=== PATIENT | male | born 1970 | race Caucasian/White ===

== ENCOUNTER 2019-10-03 13:14 | Inpatient (IN) | payer MEDICARE, SELFPAY ==
[2019-10-03] VITALS (22 sets, daily range): BP systolic 105–146; BP diastolic 78–108; PULSE 78–104; RESP 16–23; TEMP 36.1–36.3; O2SAT 95–100; BMI 38.9; BMI 38.7
--- NOTE | 2019-10-03 13:15 | EKG12_ITS ---
Test Reason : CP Blood Pressure : / mmHG Vent. Rate : 076 BPM Atrial Rate : 076 BPM P-R Int : 088 ms QRS Dur : 084 ms QT Int : 352 ms P-R-T Axes : -03 -58 -11 degrees QTc Int : 396 ms Sinus rhythm with short NH Left anterior fascicular block Inferior infarct , age undetermined Anterolateral infarct , possibly acute Confirmed by MAKAYLA AC, FESTUS ([id number]), legal editor ARIANNA DUENAS ([id number]) on 10/19/2019 11:01:20 AM Referred By: Evelio Robles Confirmed By:FESTUS BENAVIDES MD
--- NOTE | 2019-10-03 13:18 | RAD_ITS ---
STUDY: X-RAY CHEST REASON FOR EXAM: Male, 48 years old. STEMI TECHNIQUE: AP COMPARISON: 07/18/2017 FINDINGS: Lungs are generally under expanded with mild elevation the right hemidiaphragm, stable. No airspace consolidation. There is no demonstrated pleural abnormality. Normal size heart. Normal mediastinum and radha. Normal visualized pulmonary arteries. Normal visualized aortic arch and descending thoracic aorta. No acute bony process. There is no demonstrated abnormality of the visualized soft tissue structures of the upper abdomen. RAD/Chest 1 View (Portable) IMPRESSION: 1. No airspace consolidation or pleural effusion. 2. Hypoinflation. Electronically Signed: Dean Lerner MD (Brooks) at 14:03 EST , Service support ,
--- NOTE | 2019-10-03 13:19 | EKG12_ITS ---
Test Reason : AM Blood Pressure : / mmHG Vent. Rate : 083 BPM Atrial Rate : 083 BPM P-R Int : 138 ms QRS Dur : 082 ms QT Int : 348 ms P-R-T Axes : 053 -45 -14 degrees QTc Int : 408 ms Normal sinus rhythm Low voltage QRS Left anterior fascicular block Anterolateral infarct age undetermined Abnormal ECG Confirmed by ARSH AC, EMILY ([id number]), development editor LAZARO WATSON ([id number]) on 10/06/2019 10:32:38 AM Referred By: Evelio Robles Confirmed By:EMILY CABAN MD
--- NOTE | 2019-10-03 13:20 | NURSING ---
STEMI DOC ON LINE
--- NOTE | 2019-10-03 13:23 | NURSING ---
ICU 7
[2019-10-03] MEDS: TICAGRELOR 90 MG TABLET 180 MG PO (13:24)
[2019-10-03] MEDS: Aspirin 81 MG TAB.CHEW 324 MG PO (13:24)
[2019-10-03] MEDS: Heparin Injection (Vial) 5,000 UNIT/ML VIAL 4000 UNIT IV (13:24)
[2019-10-03] MEDS: Nitroglycerin SL (ED/IMG/CATH) 0.4 MG TABLET SUBLINGUAL (13:25)
[2019-10-03 13:26] LABS: Absolute Lymphocyte Count 2.81 X10^3/uL (0.83-4.51); Absolute Neutrophil Count 9.9 X10^3/uL (2.0-7.7); Basophil# 0.06 X10^3/uL; Basophil% 0.4 % (0-1); Eosinophil# 0.04 X10^3/uL; Eosinophils% 0.3 % (0-5); Hematocrit 53.6 % (40-54); Lymphocyte # 2.81 X10^3/ul (4.0); Lymphocyte % 20.1 % (19-41); Mean Corp Hgb Conc 33.8 g/dL (32-36); Mean Corpuscular Hgb 31.8 pg (27.0-32.0); Mean Platelet Vol. 9.1 fl (6.2-12.0); Monocyte# 1.08 X10^3/uL; Monocyte% 7.7 % (0-10); NRBC Flagged by Analyzer 0 % (0-5); Neutrophil # 9.94 X10^3/uL (2.7-7.7); Neutrophil % 71.2 % (47-70); Platelet Count 282 K/mm3 (150-450); RBC Distribution Width CV 13.4 % (11.6-14.6); RBC Distribution Width SD 46.5 fl (35.1-43.9)
[2019-10-03 13:28] LABS: Hemoglobin 18.1 g/dL (13.0-16.5)
[2019-10-03] MEDS: Nitroglycerin (INPATIENT USE) 0.4 MG TAB.SUBL SUBLINGUAL (13:30)
--- NOTE | 2019-10-03 13:30 | NURSING ---
MASON FOREMAN/SUPERINTENDANT CALLED AND ON THEIR WAY DR WARNER IN ER
--- NOTE | 2019-10-03 13:30 | ED.VISSUMM ---
- ER Visit Summary Date of Service: 10/03/19 Chief Complaint: Chest pain History of Present Illness: The patient is a 48 M presenting with chest pain. This started around 6 AM this morning. Patient complains of midsternal heaviness. At worst 9/10, currently 7/10. He has associated shortness of breath, nausea, vomiting, diaphoresis. He has a family history of early heart disease. He is not a smoker. No other CAD risk factors. Physical Examination: Vitals are stable. Patient is afebrile. Alert no acute distress. HEENT exam is unremarkable. Neck is supple. Lungs are clear and equal bilaterally. Heart is regular rate and rhythm. Abdomen is soft nontender nondistended. Extremities are unremarkable. Skin is warm and dry. No focal neurologic deficit. Remainder of exam is unremarkable. Emergency Department Course and Treatment: EKG shows anterolateral ST elevation MN. He was given aspirin, heparin, Brilinta, nitro. Discussed with . Patient will be taken to the woven label designer. Disposition: To woven label designer Impression: STEMI This note was generated with [employer] dictation software. It may contain incorrect words, spelling, and punctuation that were not noted in review of the chart prior to signing ED Disposition - Plan for ED Patient:
[2019-10-03 13:34] LABS: International Normalized Ratio 0.9; Prothrombin Time (Protime)PT. 12.1 SECONDS (11.7-14.9)
--- NOTE | 2019-10-03 13:36 | HP.PCM_ITS ---
Problem List (1) Acute ST elevation myocardial infarction (STEMI) Status: Acute (2) Leukemia Status: Resolved (3) Gout Status: Chronic (4) History of pulmonary embolus (PE) Status: Resolved (5) BMI 39.0-39.9,adult Status: Chronic History of Present Illness Date of Admission: 10/03/19 Chief Complaint: Chest pain The patient is a 48 year old M with past medical history significant for previous PE treated with rivaroxaban, gouty arthritis, history of leukemia status post stem cell transplant currently in remission obesity with BMI of 39 who presented with chest discomfort. Patient symptoms started on the morning of his admission. Symptoms were described as discomfort located in the retros ternal region. Patient felt she was having reflux symptoms took a couple of times without much improvement. Per patient his brother almost a year ago at 52 following acute HI he therefore became concerned and called the squad. EKG obtained demonstrated acute ST segment elevation HI involving the anterior lateral wall. STEMI alert was called. Patient taken to Customer Counter Representative for left heart catheterization and intervention. Prior to patient going to Customer Counter Representative the hospitalist was consulted from the ED for admission. Past Medical History Past Medical History (Chronic Problems): Chronic Problems Gout (Chronic) BMI 39.0-39.9,adult (Chronic) Allergies lorazepam [From Ativan] Adverse Reaction (Verified 07/18/17 09:53) HALLUCINATIONS ondansetron [From Zofran (as hydrochloride)] Adverse Reaction (Verified 07/18/17 09:53) SEVERE HEADACHE Home Medications: Ambulatory Orders Medication Instructions Recorded Acyclovir [Zovirax] 400 mg PO BID 07/18/17 Multivitamin [Multiple Vitamins] 1 each PO DAILY 07/18/17 Acetaminophen [Tylenol] 1,000 mg PO Q8 #60 tablet 07/30/17 Oxycodone [Oxyir] 5 - 10 mg PO Q6H PRN PRN #60 tablet 07/30/17 Rivaroxaban [Xarelto] 10 mg PO DAILY@0600 #42 tablet 07/30/17 Smoking Status: Never smoker - *Family History Maternal History Items: Cancer, Hypertension Paternal History Items: Diabetes, Heart Disease Review of Systems Constitutional: Denies: Anorexia, Chills, Fever, Night Sweats, Weight Change HEENT: Denies: Head Aches, Sinus Congestion, Sinus Drainage Cardiovascular: Reports: Chest Pain. Denies: Orthopnea, Palpitations, Paroxysmal Noc. Dyspnea Respiratory: Denies: Cough, Shortness of breath at rest, Shortness of breath upon exertion, Sputum production Gastrointestinal: Denies: Abdominal Pain, Hematemesis, Hematochezia, Nausea, Melena, Vomiting Genitourinary: Denies: Dysuria, Frequency, Hematuria, Urgency Musculoskeletal: Denies: Joint Pain, Joint Tenderness Skin: Denies: Rash Neurological: Denies: Focal weakness, Numbness, Tingling Psychiatric: Denies: Homicidal Ideations, Suicidal Ideations Hematologic/ Lymphatic: Denies: Easy Bruising, Easy Bleeding VTE Information - Inpt Only VTE Present on Admission: No VTE Mechan Device Prophylaxis: None VTE Pharm Prophylaxis ordered?: Yes Patient Problems: Active and Suspected Problems Acute ST elevation myocardial infarction (STEMI) (Acute) Objective: GENERAL: cooperative appears to be in some distress HEENT: Atraumatic; EYES; Anicteric, Normal Conjunctiva NECK; supple, normal thyroid, RESPIRATORY: Diminished to auscultation CARDIOVASCULAR: Regular S1 S2, GI: soft, normoactive bowel sounds, : No Renal angle tenderness; EXTREMITIES: No edema, no clubbing, MUSCULOSKELETAL: no muscle waisting NEURO: Awake; no lateralizing signs. SKIN: No Rash PSYCH; Flat affect - Physical Exam Vitals/I&O's: Vital Signs Temp Pulse Resp BP Pulse Ox 97.0 F L 86 19 H 146/108 H 99 10/03/19 13:15 10/03/19 13:25 10/03/19 13:15 10/03/19 13:25 10/03/19 13:26 Oxygen Flow Rate (L/min) 4 Oxygen Delivery Method Nasal Cannula Weight: 134 kg Body Mass Index (BMI) 38.9 Laboratory Results 10/03/19 13:19: WBC 14.0 H, RBC 5.70, Hgb 18.1 H*, Hct 53.6, MCV 94.0, MCH 31.8, MCHC 33.8, RDW Std Deviation 46.5 H, RDW Coeff of Yunior 13.4, Plt Count 282, MPV 9.1, Immature Gran % (Auto) 0.300, Neut % (Auto) 71.2 H, Lymph % (Auto) 20.1, Mcn[place] % (Auto) 7.7, Eos % (Auto) 0.3, Baso % (Auto) 0.4, Absolute Neuts (auto) 9.9 H, Absolute Lymphs (auto) 2.81, Nucleated RBC % 0, Diff Path Review January foll 10/03/19 13:19: PT Pending, INR Pending, APTT Pending 10/03/19 13:19: Sodium Pending, Potassium Pending, Chloride Pending, Carbon Dioxide Pending, Anion Gap Pending, BUN Pending, Creatinine Pending, Est GFR (MDRD) Af Amer Pending, Est GFR (MDRD) Non-Af Pending, BUN/Creatinine Ratio Pending, Glucose Pending, Calcium Pending, Troponin I Pending Current Medications Nitroglycerin (Nitrostat) 0.4 mg SUBLINGUAL Q5M PRN PRN Reason: CARDIAC/CHEST PAIN Assessment/Plan All Active Problems Acute ST elevation myocardial infarction (STEMI) (Acute) Leukemia (Resolved) History of pulmonary embolus (PE) (Resolved) Patient is a 48-year-old gentleman presented with chest pain EKG obtained on admission was consistent with acute ST segment elevation HI involving the anterior lateral wall. 1. Acute ST segment elevation HI involving the anterior lateral wall ?Cardiology consulted from the ER patient is scheduled to undergo left heart catheterization. Prior to patient going for left heart catheterization he did receive aspirin, Brilinta, heparin and nitroglycerin. Do plan to initiate beta- blockers as well as statin therapy following patient's procedure 2. History of acute myeloid leukemia ?Patient was treated with chemotherapy and subsequently underwent stem cell transplant currently in remission. Patient is on prophylactic acyclovir 3. Gouty arthritis ?Symptoms controlled with allopurinol 4. History of pulmonary embolism ?Patient was treated with rivaroxaban 5. Polycythemia ? With hemoglobin of 18.1 ? ?? Primary versus secondary work-up pending post cath 6. Morbid obesity with BMI of 39 ?Weight loss advised 7. DVT prophylaxis -Patient is high risk given his previous PE. Started on Lovenox to be initiated 4 hours following his left heart catheterization Code Visit Inpatient E&M: 59109 Init Hosp L3
[2019-10-03] MEDS: Heparin 10,000 UNITS/10 ML Vial 2000 UNITS IV (13:55)
[2019-10-03] MEDS: Nitroglycerin Oint 1 INCH PACKET 2 INCH TRANSDERM. (14:00)
[2019-10-03 14:06] LABS: Anion Gap 5 (5-15); BUN 16 mg/dL (7-18); BUN/Creat Ratio 13.6 RATIO (10-20); Calcium,Total 10.4 mg/dL (8.5-10.1); Chloride 104 mmol/L (98-107); Creatinine, Serum 1.18 mg/dL (0.70-1.30); EST Glomerular Filtration Rate 69 mL/min (>60); Est Glom Filt Rate - Afr Amer 84 mL/min (>60); Estimated Creatinine Clearance 84.64 ml/min; Glucose 124 mg/dL (74-106); Potassium 4.2 mmol/L (3.5-5.1); Sodium Level 137 mmol/L (136-145)
--- NOTE | 2019-10-03 15:15 | EKG12_ITS ---
Test Reason : POST PCI Blood Pressure : / mmHG Vent. Rate : 093 BPM Atrial Rate : 093 BPM P-R Int : 138 ms QRS Dur : 080 ms QT Int : 334 ms P-R-T Axes : 055 -56 -22 degrees QTc Int : 415 ms Normal sinus rhythm Low voltage QRS Left anterior fascicular block Anterolateral infarct ,age undetermined Abnormal ECG Confirmed by ARSH AC, EMILY ([id number]), copy editor LAZARO WATSON ([id number]) on 10/06/2019 11:03:56 AM Referred By: Evelio Robles Confirmed By:EMILY CABAN MD
--- NOTE | 2019-10-03 15:23 | CL.I_ITS ---
Patient Name: WILLIAM COKER Study Date: 10/03/2019 Performing: Evelio Robles MD Ht: 72.83 inches 185 cm : 1970 Wt: 295.42 lbs 134 kg Age: 48 Gender: male BSA: 2.54 PROCEDURE(S) PERFORMED [id number], HALLEY AND/OR PTCA, ARTERY OR GRAFT, SINGLE VESSEL CLINICAL PROFILE AND CO-MORBIDITIES Indications: Other Heart Failure: None Stress/Imaging Stress/Image Study Performed: No CAD Presentations: STEMI. Symptom onset Date/Time: 06:30:00 Time Estimated CONCLUSIONS Successful emergent PCI with Drug eluting stent and PTCA to the mid LAD using 3.0x20mm HALLEY stent RECOMMENDATIONS Highly recommend quitting all tobacco products Follow up with primary vamper Risk factor modification ASA Indefinitley Plavix for at least 12 months Routine post interventional care Refer for Outpatient Cardiac Rehab Manual sheath removal per protocol DESCRIPTION OF PROCEDURE The patient arrived to the procedure lab. The risks and benefits of the procedure as well as a full d escription of our services here and lack of surgical backup were fully explained to the patient and/o r their significant other prior to the catheterization. The Timeout was completed, verifying the swetha ect patient and procedure. The patient's procedural site was prepped and draped in the usual fashion. Local anesthetic was given subcutaneously to right radial region with Lidocaine 2%. Using a modified Seldinger technique, arterial access was obtained via the right radial artery, a 6Fr sheath was inse rted.. Left Coronary Artery selective angiography was performed in multiple views using a 5 Fr. 4.0 [place] catheter. Right Coronary Artery selective angiography was then performed in multiple views usin g a 5 Fr. 4.0 [place] catheter. LV to AO pullback pressures were then recorded JL 4 Guide catheter was inserted and engaged into the LCA. Runthrough Guide wire was advanced to the LAD. Emerge 3.0 x 12 Balloon catheter was inserted. Balloon catheter was advanced across lesion i n the LAD, mid. PTCA balloon inflated at 6 atms for 30 secs. [employer] [place] Guide wire was inserted as a kassidy wire Emerge 3.0 x 12 Balloon catheter was reinserted on the [employer] [place] Wire Balloon shea ter was advanced across lesion in the LAD, mid. PTCA balloon inflated at 10 atms for 45 secs. PTCA ba lloon inflated at 10 atms for 30 secs. Synergy 3.0 x 20 Drug Eluting stent was inserted. Drug Eluting stent was advanced across the lesion in the LAD, mid. The arterial sheath was pulled and a TR Band was applied for hemostasis CORONARY ANGIOGRAPHY DOMINANCE: Left Dominant LEFT HEART ASSESSMENT Left Ventricular Ejection Fraction: Not assessed Elevated Left Ventricular End Diastolic Pressure Elevated Left Ventricular End Diastolic Pressure 46mmHg LEFT MAIN: Angiographically normal LEFT ANTERIOR DESCENDING ARTERY: MID LAD: 100%occluded CIRCUMFLEX ARTERY: DISTAL CIRC: 70%stenosis indistal LCX RIGHT CORONARY ARTERY: nondominant, small vessel INTERVENTION INFORMATION LESION SITE: LAD (Mid) Lesion Complexity: Non-High/Non-C, lesion at bifurcation: Yes, thrombus present: Yes, lesion length: 18 mm, culprit lesion: Yes Pre Stenosis: 100 % Pre intervention GINETTE flow: 0 PROCEDURE: Drug Eluting Stent with pre dilatation. there is50-60% plaque in prox LADwhich isappreciated on advancing the baloon and stent Post Stenosis: 0 % Post intervention GINETTE flow: 3 Lesion Devices: Terumo .014 Runthrough Extra Floppy 180cm straight Loretronic 6 Fr JL4.0 100cm Guide Catheter Ivan Sci EMERGE MR 3.00x12 BALLOON [place] .014 [employer] [place] Straight 190cm Ivan Sci Synergy MR HALLEY 3.00x20 Teleflex Medical TR Band, Large/Long COMPLICATIONS No Complications PROCEDURE MEDICATIONS Versed 1 mg IV Fentanyl 50 mcg IV Oxygen: 2 L/min via nasal cannula Heparin 2500 unit(s) IV 10/03/2019 14:17:12 Heparin 1000 unit(s) IV 10/03/2019 14:22:30 Heparin 2500 unit(s) IV 10/03/2019 14:39:05 Lasix 40 mg IV 10/03/2019 14:57:51 Heparin 3000 unit(s) IV 10/03/2019 15:05:15 Nitro 600 mcg IC 10/03/2019 14:35:03 Nitro 600 mcg IC 10/03/2019 14:35:03 Nitro 600 mcg IC 10/03/2019 14:38:45 Nitro 600 mcg IC 10/03/2019 14:45:22 IV Bolus: .9 NaCl 1900 ml total 10/03/2019 14:34:35 SUMMARY OF HEMODYNAMIC DATA Time AIR REST ECG 14:01:37 AO 111/88 (101) SA 14:12:37 LV 129/21, 44 14:55:45 LV 135/22, 46 14:55:51 LVp 121/31, 42 14:56:48 AOp 87/0 (66) 14:56:53 Signed By Evelio Robles MD On 10/03/2019 15:22:26 Evelio Robles MD
[2019-10-03 15:31] LABS: ACT Activated Clotting Time 202 sec (74-137)
[2019-10-03 15:31] LABS: ACT Activated Clotting Time 191 sec (74-137)
[2019-10-03 15:31] LABS: ACT Activated Clotting Time 169 sec (74-137)
--- NOTE | 2019-10-03 15:43 | PCM.CONS.C ---
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 He woke up this morning with symptoms of chest pressure initially thought it was heartburn he took some Tums without much relief later on as the pain persisted he asked his to give him some Mylanta which she gave and in spite of that the pain persisted and pain started radiated to both shoulders and into the biceps. The symptoms he was concerned as his brother with an acute microinfarction at 50 years of age and then asked his to drive him to the hospital. He came in in a private car and EKG performed in the emergency room showed evidence of ST segment elevation in the lateral leads I aVL as well as in V2 V3 V4 which were new compared to his previous EKG that we have in our system. Code STEMI was activated and pt was evaluated by me in the ER. He continued to have symptoms of chest discomfort in the emergency room at the time of my evaluation [] Past Medical History Allergies/Adverse Reactions: Allergies lorazepam [From Ativan] Adverse Reaction (Verified 07/18/17 09:53) HALLUCINATIONS ondansetron [From Zofran (as hydrochloride)] Adverse Reaction (Verified 07/18/17 09:53) SEVERE HEADACHE Home Medications: Ambulatory Orders Medication Instructions Recorded Acyclovir [Zovirax] 400 mg PO BID 07/18/17 Multivitamin [Multiple Vitamins] 1 each PO DAILY 07/18/17 Acetaminophen [Tylenol] 1,000 mg PO Q8 #60 tablet 07/30/17 Oxycodone [Oxyir] 5 - 10 mg PO Q6H PRN PRN #60 tablet 07/30/17 Rivaroxaban [Xarelto] 10 mg PO DAILY@0600 #42 tablet 07/30/17 Past Medical History (Chronic Problems): Chronic Problems Gout (Chronic) BMI 39.0-39.9,adult (Chronic) - *Family History Maternal History Items: Cancer, Hypertension Paternal History Items: Diabetes, Heart Disease Smoking Status: Never smoker Review of Systems - Review of Systems General: Denies: Fever, Night Sweats, Fatigue Cardiovascular: Denies: Chest Discomfort, Shortness of Breath, Orthopnea, PND, Peripheral Edema, Palpitations, Lightheadedness, Dizziness, Near Syncope, Syncope Respiratory: Denies: Cough, Sputum Production, Hemoptysis Gastrointestinal: Denies: Hematemesis, Hematochezia, Melena Genitourinary: Denies: Dysuria, Hematuria Skin: Denies: Rash Objective: Vital Signs Temp Pulse Resp BP Pulse Ox 97.0 F L 96 20 H 132/97 H 95 10/03/19 13:15 10/03/19 14:00 10/03/19 13:37 10/03/19 14:00 10/03/19 13:37 Oxygen Flow Rate (L/min) 4 Oxygen Delivery Method Nasal Cannula Weight: 295 lb 6.711 oz Body Mass Index (BMI) 38.9 General: Awake, Alert, Oriented x 3 HEENT: PERRL, EOMI, Sclera Non Icteric Neck: Supple, Good ROM, No Lymph Node Enlargement Lungs: Clear to auscultation Cardiovascular: Regular Rhythm, Normal S1, Normal S2, No Murmurs, No Rubs, No Gallops Vascular: No Carotid Bruits, Normal Femoral Pulses, Normal Radial Pulses, Normal Dorsalis Pedal Pulse, Normal Posterior Tibial Pulses Abdomen: Bowel Sounds Present, Soft, Non Tender, No HSM, No Organomegaly Extremities: No Cyanosis, No Clubbing, No edema Neurological: No Focal Motor or Sensory Deficit 10/03/19 13:19: WBC 14.0 H, RBC 5.70, Hgb 18.1 H*, Hct 53.6, MCV 94.0, MCH 31.8, MCHC 33.8, Plt Count 282, MPV 9.1, Immature Gran % (Auto) 0.300, Neut % (Auto) 71.2 H, Lymph % (Auto) 20.1, Wilkinson % (Auto) 7.7, Eos % (Auto) 0.3, Baso % (Auto) 0.4, Absolute Neuts (auto) 9.9 H, Nucleated RBC % 0 10/03/19 13:19: PT 12.1, INR 0.9, APTT 27.0 10/03/19 13:19: Sodium 137, Potassium 4.2, Chloride 104, Carbon Dioxide 28.0, Anion Gap 5, BUN 16, Creatinine 1.18, Est GFR (MDRD) Af Amer 84, Est GFR (MDRD) Non-Af 69, BUN/Creatinine Ratio 13.6, Glucose 124 H, Calcium 10.4 H, Troponin I 10.500 H* Rhythm: EKG: ECHO: Stress Test: Cardiac Cath: PCI: CT Surgery: Holter monitor: EPS: PPM: CXR: Chest CT Scan: Assessment/Plan Acute ST elevation myocardial infarction involving the anterior wall patient was given IV heparin in the emergency room as well as Brilinta and aspirin. Patient will be taken to cardiac [facility] for primary angioplasty of culprit vessel. Further management options will be based upon the findings left heart catheterization 2. Remote history of DVT in left lower extremity and pulmonary embolism for which patient is currently not on systemic oral anticoagulation 3. Leukemia currently in remission after receiving stem cell transplantation at [facility] approximately two and half years ago 4. Gout for which he remains on prophylactic allopurinol 5. Obesity 6. Family history of premature coronary atherosclerosis
[2019-10-03] MEDS: 0.9% Normal Saline 1,000 ML 150 ML IV ×2 (15:52→22:30)
[2019-10-03] MEDS: oxyCODONE 5 MG Tablet PO ×2 (16:04→22:49)
[2019-10-03] MEDS: Temazepam 15 MG Capsule PO (20:28)
[2019-10-03] MEDS: Atorvastatin Calcium 80 MG Tablet PO (21:06)
[2019-10-03] MEDS: Metoprolol Tartrate 25 MG Tablet 12.5 MG PO (21:07)
[2019-10-03] MEDS: TICAGRELOR 90 MG TABLET PO (21:08)
[2019-10-03] MEDS: Furosemide 20 MG/2 ML VIAL IV (22:28)
[2019-10-03] MEDS: Metoprolol Tartrate 25 MG Tablet PO (22:29)
[2019-10-03] MEDS: Heparin Injection (Vial) 5,000 UNIT/ML VIAL 6000 UNIT IV (22:38)
[2019-10-03] MEDS: HEPARIN/D5w 25,000 UNITS 25,000 UNITS/250 ML IV.SOLN. 10 UNITS IV (22:39)
[2019-10-03 22:40] LABS: Partial Thromboplast Time 25.8 Seconds (24.1-36.2)
[2019-10-03 23:14] LABS: CPK Total, Creatine Kinase 5228 U/L (39-308)
[2019-10-04] VITALS (17 sets, daily range): BP systolic 90–128; BP diastolic 66–98; PULSE 77–101; RESP 18–27; TEMP 36.6–37.6; O2SAT 94–96; BMI 39.1
[2019-10-04] MEDS: diazePAM 2 MG Tablet PO ×3 (03:12→21:06)
--- NOTE | 2019-10-04 03:31 | CT_ITS ---
STUDY: CTA CHEST REASON FOR EXAM: Male, 48 years old. Dyspnea. Massive myocardial infarction yesterday stent placement. History of gout, leukemia and pulmonary embolus. RADIATION DOSAGE (If Supplied By Facility): CTDIvol = ( 16.23 ) mGy, DLP = ( 546.98 ) mGycm TECHNIQUE: The examination was performed with the intravenous administration of IV 100mL Isovue-370. Post-processing of the angiographic images was performed, with multiplanar reformation and 3D reconstruction. Individualized dose optimization techniques were used for this CT. COMPARISON: Chest x-ray October 03, 2019. FINDINGS: Normal enhancement of the main pulmonary artery and right and left pulmonary arteries. Normal enhancement of the bilateral peripheral pulmonary arteries. There is no demonstrated pulmonary embolism. Normal thoracic aorta and visualized great vessels. There is no demonstrated aortic dissection. Normal heart and pericardium. Normal mediastinum. Normal hilar regions. Normal visualized trachea and bronchi. The lungs are well expanded. Normal pulmonary parenchyma. Normal pleura. Normal chest wall structures. Normal osseous structures. Surgical clips in the gallbladder fossa. CT/CTA Chest W/WO Contrast IMPRESSION: Normal CTA chest examination, without a demonstrated pulmonary embolism or arterial dissection. Electronically Signed: Andrea Fernando MD at 5:38 EST , Service support ,
[2019-10-04 05:02] LABS: Absolute Lymphocyte Count 3.39 X10^3/uL (0.83-4.51); Basophil# 0.05 X10^3/uL; Basophil% 0.3 % (0-1); Eosinophil# 0.07 X10^3/uL; Eosinophils% 0.5 % (0-5); Hematocrit 44.6 % (40-54); Hemoglobin 15.2 g/dL (13.0-16.5); Lymphocyte # 3.39 X10^3/ul (4.0); Lymphocyte % 22.6 % (19-41); Mean Corp Hgb Conc 34.1 g/dL (32-36); Mean Corpuscular Hgb 32.1 pg (27.0-32.0); Mean Corpuscular Volume 94.3 fL (80-94); Mean Platelet Vol. 9.6 fl (6.2-12.0); Monocyte# 1.46 X10^3/uL; Monocyte% 9.7 % (0-10); NRBC Flagged by Analyzer 0 % (0-5); Neutrophil % 66.6 % (47-70); Platelet Count 246 K/mm3 (150-450); RBC Distribution Width CV 13.7 % (11.6-14.6); RBC Distribution Width SD 47.1 fl (35.1-43.9); Red Blood Count 4.73 M/mm3 (4.6-6.2)
[2019-10-04 05:16] LABS: Partial Thromboplast Time 38.4 Seconds (24.1-36.2)
[2019-10-04] MEDS: 0.9% Normal Saline 1,000 ML 150 ML IV (05:25)
[2019-10-04 05:38] LABS: ALB/GLOB Ratio 0.9 RATIO (0.9-2.4); AST(SGOT) 507 U/L (15-37); Alanine Aminotransfer ALT/SGPT 132 U/L (16-61); Albumin, Serum 3.1 g/dL (3.2-5.0); Alkaline Phosphatase 66 U/L (45-117); BUN 15 mg/dL (7-18); BUN/Creat Ratio 12.5 RATIO (10-20); CPK Total, Creatine Kinase 3371 U/L (39-308); Calcium,Total 8.4 mg/dL (8.5-10.1); Chloride 101 mmol/L (98-107); Cholesterol 193 mg/dL (200); EST Glomerular Filtration Rate 68 mL/min (>60); Est Glom Filt Rate - Afr Amer 82 mL/min (>60); Estimated Creatinine Clearance 83.23 ml/min; Globulin 3.5 g/dL (2.2-4.2); Glucose 124 mg/dL (74-106); Potassium 3.6 mmol/L (3.5-5.1); Protein, Total 6.6 g/dL (6.4-8.2); Sodium Level 135 mmol/L (136-145); Triglycerides 396 mg/dL
[2019-10-04 05:39] LABS: Anion Gap 8 (5-15); High Density Lipoprotein 34 mg/dL; Very Low Density Lipoprotein 79 mg/dL (5-40)
[2019-10-04] MEDS: Heparin Injection (Vial) 5,000 UNIT/ML VIAL IV (05:59)
--- NOTE | 2019-10-04 06:00 | ECHOCS_ITS ---
Reason For Study: S/P KS Procedure This was a 2D Doppler, Color Flow transthoracic echocardiogram. Myocardial strain analysis was performed in this exam to aid in the assessment of cardiac function. Contrast injection was performed. Exam performed portable in ICU/CCU. Left Ventricle Normal LV size. The estimated ejection fraction is 30 %. Moderately severe segmental systolic dysfunction (see wall motion). Normal diastology for age. [place] : Akinetic. Anterior [place] : Akinetic. Lateral [place] : Akinetic. Mid-Lateral : Mildly hypokinetic. Mid-anteroseptal : Hypokinetic. Right Ventricle Normal RV size. Normal systolic function. Atria Normal left atrium. Normal right atrium. Mitral Valve Normal mitral valve. Tricuspid Valve Normal tricuspid valve. Mild (1+) tricuspid valve insufficiency. Pulmonary artery systolic pressure is 32 mmHg. Aortic Valve Normal aortic valve. Trisinus/trileaflet aortic valve. Pulmonic Valve Normal pulmonic valve. Great Vessels Normal aortic root. The pulmonary artery is normal size. Normal inferior vena cava. Pericardium/Pleural No pericardial effusion. Medication Diluted definity 5.0ml given slow IV push to enhance endocardial definition. MMode/2D Measurements & Calculations LVIDd: 5.4 cm IVSd: 1.0 cm Ao root diam: 3.4 cm LVIDs: 3.7 cm LVPWd: 1.1 cm RVDd: 3.3 cm FS: 31.6 % LAV(MOD-bp): 44.1 ml LVAd ap4: 40.8 cm2 SV(MOD-sp4): 50.6 ml LAV(MOD-bp) Indexed: 17.4 ml/m2 EDV(MOD-sp4): 148.0 ml LAV(MOD-sp2): 38.5 ml EDV(sp4-el): 154.3 ml LAV(MOD-sp4): 44.6 ml LVAs ap4: 31.7 cm2 ESV(MOD-sp4): 97.4 ml ESV(sp4-el): 100.4 ml EF(MOD-sp4): 34.2 % EF(sp4-el): 34.9 % SV(sp4-el): 53.9 ml LA A4 area: 17.4 cm2 LA dimension(2D): 4.2 cm RA A4 area: 13.4 cm2 Time Measurements MV dec time: 0.28 sec Doppler Measurements & Calculations MV E max rosendo: 57.0 cm/sec Lat Peak E' Rosendo: 7.9 cm/sec Med Peak E' Rosendo: 6.2 cm/sec MV A max rosendo: 46.0 cm/sec E/E' lat: 7.2 E/E' med: 9.2 MV E/A: 1.2 Ao V2 max: 104.4 cm/sec LV V1 max: 65.4 cm/sec TR max rosendo: 264.0 cm/sec Ao max P.4 mmHg LV V1 max P.7 mmHg TR max P.9 mmHg Interpretation Summary Normal LV size. The estimated ejection fraction is 30 %. Moderately severe segmental systolic dysfunction (see wall motion). Mild (1+) tricuspid valve insufficiency. Pulmonary artery systolic pressure is 32 mmHg. Contrast injection was performed. Ordering Physician: Evelio Robles Referring Physician: TREVOR OSEGUERA Performed By: Alyssa Morgan, NATHALIE, RVT
--- NOTE | 2019-10-04 08:19 | CRPHASE1 ---
Patient Communication PHII Cardiac Rehab Discussed with Patient:: Yes Guide to Cardiac Rehab Given to Patient:: Yes Cardiac Rehab Facility Choice List Given to Patient:: Yes - [facility] Choice Program [facility] CR PHII:: Communication Given to CR, Refer to [facility] Cloud Operations Engineer:: Amado Platt PCP:: Juan Davila Sessions:: 36 sessions - 3 days/wk, 12 weeks Risk Factors/Lifestyle Smoking Status: Never smoker Hx Hypertension: Yes Hx Diabetes Mellitus Type 2: No Hx Metabolic Disorders: Yes Hx Dyslipidemia: Yes Hx Obesity: Yes Height: 1.85 m Weight:: 134 kg BMI: 39.1 ETOH: Yes Caffeine: Yes Substance Abuse: Yes Risk Factor for Sedentary Lifestyle: Highest Risk Family History: Family History (Last Updated 10/04/19 @ 06:52 by Nelly Thompson) Father Heart disease Diabetes Mother Cancer Hypertension Family History: Cancer, Diabetes, High Cholesterol, Heart Disease, Hypertension, Pulmonary Disease Laboratory Values: Cardiac Rehab Phase I Labs Triglycerides 396 mg/dL (-199) H 10/04/19 04:30 Cholesterol 193 mg/dL (200) 10/04/19 04:30 LDL Cholesterol 80 mg/dL (0-130) 10/04/19 04:30 HDL Cholesterol 34 mg/dL (40-) L 10/04/19 04:30 Phase I Education Given On:: [place], Nutrition Issues Affecting Care:: None Knowledge of Condition:: Yes Hospital Course Cardiac Cath Date:: 10/03/19 Medical/Surgical History MA:: Yes Angina:: Yes Pulmonary:: Yes Hypertension:: Yes Dyslipidemia:: Yes PE:: Yes Cancer:: Yes Discharge/Home/Social Eval Discharge Disposition: Home Marital Status: Patient Lives With:: Cardiac Rehabilitation Info Cardiac Rehabilitation Program Information: Cardiac Rehabilitation is important for patients like you who are recovering from a heart problem. Cardiac rehabilitation programs are recognized as integral to the continued care of the patient with coronary heart disease. The cardiac rehabilitation program is designed to optimize a patient's physical, psychological, and social functioning. Health pet care associate work in cardiac rehabilitation programs and assist you with getting the treatments you need to get stronger and healthier - like exercise, healthy eating habits, and medications. Cardiac rehabilitation has been show to help people with heart problems live longer and have better life enjoyment than people who do not go to cardiac rehabilitation. Please contact the Cardiac Rehabilitation Program at [facility] at in two weeks if you have not heard from them.
--- NOTE | 2019-10-04 08:25 | CRPH1.INST_ITS ---
General Education CAD and cardiac anatomy and function:: Patient communicates acknowledgment Sign/Symptoms of MD:: Patient communicates acknowledgment Antiplatelet therapy: Not instructed Proper use of NTG-SL: Not instructed Emergency procedures and activation of EMS: Not instructed Compliance of all prescribed medications: Not instructed Smoking Patient Nicotine/Smoking Risk Factors Are:: Non-smoker Dyslipidemia Patient Dyslipidemia Risk Factors Are:: Total Cholesterol - 193, Triglycerides - 396, HDL - 34, LDL - 79 Recommendations Include:: Lipid profile provided Dyslipidemia Response Code:: Patient communicates acknowledgment Overweight/Obesity Patient Overweight/Obesity Risk Factors Are:: Overweight = 26-29 Hypertension Recommendations Include:: Maintain BP <130/85, Decrease/maintain normal body we ight Hypertension:: Patient communicates acknowledgment Heart Disease Patient Heart Disease Risk Factors Are:: Family history of heart disease < 65 years old Heart Disease Response Code:: Patient communicates acknowledgment Diabetes Patient Diabetes Risk Factors Are:: No documented hx of diabetes Metabolic Syndrome Patient Metabolic Syndrome Risk Factors Are [3 of 5]:: Waist circumference > 35 [female] or 40 [male], High triglyceride >150, Hypertension, Low HDL <40 [male] or < 50 [female] Sedentary Patient Sedentary Risk Factors Are:: Lack of regular exercise Sedentary Response Code:: Patient communicates acknowledgment Stress Stress Response Code:: Patient communicates acknowledgment
--- NOTE | 2019-10-04 08:26 | PN.CARD_ITS ---
Subjectve: Patient seen and evaluated. Events of yesterday noted. Objective: Vital Signs Temp Pulse Resp BP Pulse Ox 97.8 F 88 18 90/66 95 10/04/19 08:00 10/04/19 08:00 10/04/19 08:00 10/04/19 08:00 10/04/19 08:00 Oxygen Flow Rate (L/min) 3 Oxygen Delivery Method Nasal Cannula Weight: 295 lb 6.711 oz Body Mass Index (BMI) 38.7 Intake and Output for Last 24 Hours 10/02/19 10/03/19 10/04/19 23:59 23:59 23:59 Intake Total 1198.5 / 1708.5 2454.9 / 2454.9 Output Total 3100 / 5350 3300 / 3300 Balance -1901.5 / -3641.5 -845.1 / -845.1 General: Awake, Alert, Oriented x 3 HEENT: PERRL, EOMI, Sclera Non Icteric Neck: Supple, Good ROM, No Lymph Node Enlargement Lungs: Diminished Rui Bases Cardiovascular: Regular Rhythm, Normal S1, Normal S2, No Murmurs, No Rubs, No Gallops Vascular: No Carotid Bruits, Normal Femoral Pulses, Normal Radial Pulses, Normal Dorsalis Pedal Pulse, Normal Posterior Tibial Pulses Abdomen: Bowel Sounds Present, Soft, Non Tender, No HSM, No Organomegaly Extremities: No Cyanosis, No Clubbing, No edema Musculoskeletal: No Erythema Skin: No Rashes Lymphatic: No Lymph Node Enlargement Neurological: No Focal Motor or Sensory Deficit Psych/Mental Status: Appropriate 10/03/19 13:19: WBC 14.0 H, RBC 5.70, Hgb 18.1 H*, Hct 53.6, MCV 94.0, MCH 31.8, MCHC 33.8, Plt Count 282, MPV 9.1, Immature Gran % (Auto) 0.300, Neut % (Auto) 71.2 H, Lymph % (Auto) 20.1, Ada % (Auto) 7.7, Eos % (Auto) 0.3, Baso % (Auto) 0.4, Absolute Neuts (auto) 9.9 H, Nucleated RBC % 0 10/03/19 13:19: PT 12.1, INR 0.9, APTT 27.0 10/03/19 13:19: Sodium 137, Potassium 4.2, Chloride 104, Carbon Dioxide 28.0, Anion Gap 5, BUN 16, Creatinine 1.18, Est GFR (MDRD) Af Amer 84, Est GFR (MDRD) Non-Af 69, BUN/Creatinine Ratio 13.6, Glucose 124 H, Calcium 10.4 H, Troponin I 10.500 H* 10/03/19 22:20: APTT 25.8 10/04/19 04:30: WBC 15.0 H, RBC 4.73, Hgb 15.2, Hct 44.6, MCV 94.3 H, MCH 32.1 H , MCHC 34.1, Plt Count 246, MPV 9.6, Immature Gran % (Auto) 0.300, Neut % (Auto) 66.6, Lymph % (Auto) 22.6, Ada % (Auto) 9.7, Eos % (Auto) 0.5, Baso % (Auto) 0.3, Absolute Neuts (auto) 10.0 H, Nucleated RBC % 0 10/04/19 04:30: Sodium 135 L, Potassium 3.6, Chloride 101, Carbon Dioxide 26.0, Anion Gap 8, BUN 15, Creatinine 1.20, Est GFR (MDRD) Af Amer 82, Est GFR (MDRD) Non-Af 68, BUN/Creatinine Ratio 12.5, Glucose 124 H, Calcium 8.4 L, Total Bilirubin 0.60, Triglycerides 396 H, Cholesterol 193, LDL Cholesterol 80, VLDL Cholesterol 79 H, HDL Cholesterol 34 L 10/04/19 04:30: APTT 38.4 H Rhythm: EKG: ECHO: Stress Test: Cardiac Cath: PCI: CT Surgery: Holter monitor: EPS: PPM: CXR: Chest CT Scan: Medical Necessity - Tobacco Use Smoking Status: Never smoker Tobacco Use: Chew Assessment/Plan 1. Status post acute anterior wall myocardial infarction * Patient appears to be doing fairly well though somewhat apprehensive * Would recommend an echocardiogram to assess left ventricular function * Continue low-dose beta-quinn * Will continue aspirin * Continue ticagrelor * Continue high intensity statin * Will start AGNES inhibitor as tolerated * Echocardiogram to assess left ventricular function * Depending on the findings further recommendations will be made. Patient also encouraged to start cardiac rehabilitation. * * Thank you for allowing me to participate in the care of your patient. Please don't hesitate to call if any issues arise
[2019-10-04] MEDS: 0.9% Saline Lock 10 ML Syringe IV ×2 (09:25→21:07)
[2019-10-04] MEDS: Furosemide 20 MG/2 ML VIAL IV (09:25)
[2019-10-04] MEDS: Metoprolol Tartrate 25 MG Tablet PO ×2 (09:26→21:05)
[2019-10-04] MEDS: TICAGRELOR 90 MG TABLET PO ×2 (09:26→21:06)
[2019-10-04] MEDS: Aspirin E.C. 81 MG Tablet PO (09:26)
--- NOTE | 2019-10-04 10:00 | EKG12_ITS ---
Test Reason : ROUTINE Blood Pressure : / mmHG Vent. Rate : 096 BPM Atrial Rate : 096 BPM P-R Int : 134 ms QRS Dur : 092 ms QT Int : 316 ms P-R-T Axes : 048 -57 -09 degrees QTc Int : 399 ms Normal sinus rhythm Low voltage QRS Left anterior fascicular block Anterolateral infarct , possibly acute ACUTE PR / STEMI Abnormal ECG When compared with ECG of 04-OCT-2019 05:45, MANUAL COMPARISON REQUIRED, DATA IS UNCONFIRMED Confirmed by MARIAH AC, MAGDALENA ([id number]), associate entertainment editor LAZARO WATSON ([id number]) on 10/08/2019 2:43:57 PM Referred By: Evelio Robles Confirmed By:ALBINO LEMUS MD
--- NOTE | 2019-10-04 10:12 | PCM.PN.HOSP ---
Patient Problems: Active and Suspected Problems (Last Updated 10/04/19 @ 06:54 by Nelly Thompson) Acute ST elevation myocardial infarction (STEMI) (Acute 10/03/19) Reason for Visit: STEMI Subjective: Awoke short of breath last night, like he was breathing through a straw. Never had this before. No h/o panic atx. Vitals/I&O's: Vital Signs Temp Pulse Resp BP Pulse Ox 36.7 C 91 23 H 128/97 H 95 10/04/19 10:00 10/04/19 10:00 10/04/19 10:00 10/04/19 10:00 10/04/19 10:00 Oxygen Flow Rate (L/min) 3 Oxygen Delivery Method Room Air Weight: 134 kg Body Mass Index (BMI) 38.7 Intake and Output for Last 24 Hours 10/02/19 10/03/19 10/04/19 23:59 23:59 23:59 Intake Total 1198.5 / 1708.5 2454.9 / 2454.9 Output Total 3100 / 5350 3300 / 3300 Balance -1901.5 / -3641.5 -845.1 / -845.1 General: Alert, No apparent distress HEENT: Atraumatic, Normocephalic Oral: Moist Mucosa, No Gingival or Mucosal Lesions/ Ulcerations Neck: No Nodes, Trachea Midline, - - redundant tissue on neck Lungs: Clear to auscultation, Normal air movement, No rhonchi, No wheeze, No rales Cardiovascular: Regular rate, Regular Rhythm, Normal S1, Normal S2, No murmurs Abdomen: Bowel Sounds Present, Soft, Non Tender, Non-Distended, No Hepato-splenomegaly Extremities: No edema, No Calf Tenderness, - - right radial cath site slightly tender to palpation. no ecchymosis. Skin: No rashes, No breakdown Musculoskeletal: No Tenderness to Palpation of Joints or Extremities, No Muscle Wasting Psych/Mental Status: Normal Affect, Appropriate Laboratory Results 10/03/19 13:19: WBC 14.0 H, RBC 5.70, Hgb 18.1 H*, Hct 53.6, MCV 94.0, MCH 31.8, MCHC 33.8, RDW Std Deviation 46.5 H, RDW Coeff of Yunior 13.4, Plt Count 282, MPV 9.1, Immature Gran % (Auto) 0.300, Neut % (Auto) 71.2 H, Lymph % (Auto) 20.1, [place] % (Auto) 7.7, Eos % (Auto) 0.3, Baso % (Auto) 0.4, Absolute Neuts (auto) 9.9 H, Absolute Lymphs (auto) 2.81, Nucleated RBC % 0, Diff Path Review January10/03/19 13:19: PT 12.1, INR 0.9, APTT 27.0 10/03/19 13:19: Sodium 137, Potassium 4.2, Chloride 104, Carbon Dioxide 28.0, Anion Gap 5, BUN 16, Creatinine 1.18, Estim Creat Clear Calc 84.64, Est GFR (MDRD) Af Amer 84, Est GFR (MDRD) Non-Af 69, BUN/Creatinine Ratio 13.6, Glucose 124 H, Calcium 10.4 H, Troponin I 10.500 H* 10/03/19 14:13: Activated Clotting Time 169 H 10/03/19 14:35: Activated Clotting Time 191 H 10/03/19 15:01: Activated Clotting Time 202 H 10/03/19 22:20: Total Creatine Kinase 5228 H 10/03/19 22:20: APTT 25.8 10/04/19 04:30: WBC 15.0 H, RBC 4.73, Hgb 15.2, Hct 44.6, MCV 94.3 H, MCH 32.1 H, MCHC 34.1, RDW Std Deviation 47.1 H, RDW Coeff of Yunior 13.7, Plt Count 246, MPV 9.6, Immature Gran % (Auto) 0.300, Neut % (Auto) 66.6, Lymph % (Auto) 22.6, [place] % (Auto) 9.7, Eos % (Auto) 0.5, Baso % (Auto) 0.3, Absolute Neuts (auto) 10.0 H, Absolute Lymphs (auto) 3.39, Nucleated RBC % 0 10/04/19 04:30: Sodium 135 L, Potassium 3.6, Chloride 101, Carbon Dioxide 26.0, Anion Gap 8, BUN 15, Creatinine 1.20, Estim Creat Clear Calc 83.23, Est GFR (MDRD) Af Amer 82, Est GFR (MDRD) Non-Af 68, BUN/Creatinine Ratio 12.5, Glucose 124 H, Calcium 8.4 L, Total Bilirubin 0.60, AST 507 H, ALT 132 H, Alkaline Phosphatase 66, Total Creatine Kinase 3371 H, Total Protein 6.6, Albumin 3.1 L, Globulin 3.5, Albumin/Globulin Ratio 0.9, Triglycerides 396 H, Cholesterol 193, LDL Cholesterol 80, VLDL Cholesterol 79 H, HDL Cholesterol 34 L 10/04/19 04:30: APTT 38.4 H Current Medications Acetaminophen (Tylenol) 650 mg PO Q6H PRN PRN PRN Reason: Pain Score 1-3/Temp > 100.7 F Al Hydroxide/Mg Hydroxide (Mylanta Ii) 30 ml PO Q6H PRN PRN PRN Reason: Gastric Burning Aspirin (Ecotrin) 81 mg PO DAILY@0800 [facility] Last Admin: 10/04/19 09:26 Dose: 81 mg Documented by: Atorvastatin Calcium (Lipitor) 80 mg PO QHS [facility] Last Admin: 10/03/19 21:06 Dose: 80 mg Documented by: Atropine Sulfate () 0.5 mg IV UD PRN PRN Reason: HR <50 bpm Diazepam (Valium) 2 mg PO 4X/DAY PRN PRN PRN Reason: ANXIETY Last Admin: 10/04/19 03:12 Dose: 2 mg Documented by: Sodium Chloride () 250 mls @ 15 mls/hr IV .[id number] PRN PRN Reason: Saline Flush Sodium Chloride () 250 mls @ 15 mls/hr IV .[id number] PRN PRN Reason: Additional IVPB Infusion Labetalol HCl (Trandate) 5 mg IV X1 PRN PRN Reason: SBP > 160 when pulling sheath Magnesium Hydroxide (Milk Of Magnesia) 30 ml PO DAILY PRN PRN PRN Reason: Constipation Melatonin (Melatonin) 3 mg PO QHS PRN PRN PRN Reason: INSOMNIA Metoprolol Tartrate (Lopressor (Beta Masoud)) 25 mg PO BID [facility] Last Admin: 10/04/19 09:26 Dose: 25 mg Documented by: Morphine Sulfate () 4 mg IV Q3H PRN PRN PRN Reason: Pain Score 6-10/10 Nitroglycerin (Nitrostat) 0.4 mg SUBLINGUAL Q5M PRN PRN Reason: CARDIAC/CHEST PAIN Last Admin: 10/03/19 13:30 Dose: 0.4 mg Documented by: Oxycodone HCl (Oxyir) 5 mg PO Q4H PRN PRN PRN Reason: Pain Score 4-5/10 Last Admin: 10/03/19 22:49 Dose: 5 mg Documented by: Potassium Chloride (K-Dur) [facility] Last Admin: 10/04/19 09:28 Dose: 40 meq Documented by: Promethazine HCl (Phenergan) 25 mg IM Q6H PRN PRN PRN Reason: Breakthrough Nausea/Vomiting Sodium Chloride () 500 ml IV BOLUS PRN PRN Reason: VASO-VAGAL PROTOCOL Sodium Chloride () 10 - 40 ml IV UD PRN PRN Reason: SALINE FLUSH Last Admin: 10/04/19 09:25 Dose: 10 ml Documented by: Temazepam (Restoril) 15 - 30 mg PO BID PRN PRN PRN Reason: ANXIETY/RESTLESSNESS Last Admin: 10/03/19 20:28 Dose: 30 mg Documented by: Ticagrelor (Brilinta) 90 mg PO BID [facility] Last Admin: 10/04/19 09:26 Dose: 90 mg Documented by: STROKE Vital Signs/Narrative: Vital Signs Temp Pulse Resp BP BP Pulse Ox 10/04/19 10:00 36.7 C 91 23 H 128/97 H 95 10/04/19 09:43 95 10/04/19 09:26 88 111/91 H 10/04/19 09:00 86 27 H 111/91 H 94 10/04/19 08:00 36.6 C 88 18 90/66 95 10/04/19 07:16 80 Medical Necessity - Tobacco Use Smoking Status: Never smoker Tobacco Use: Chew Assessment/Plan All Active Problems (Last Updated 10/04/19 @ 06:54 by Nelly Thompson) Acute ST elevation myocardial infarction (STEMI) (Acute 10/03/19) History of coronary artery stent placement (Resolved 10/03/19) History of pulmonary embolus (PE) (Resolved) Myeloid leukemia (Resolved) 1. Acute STEMI s/p HALLEY to LAD on 10/03/2019 continue ASA, HIS, ticagrelor, metop tart echo pending 2. suspected panic attack awoke short of breath, that persisted after being awake. He may have underlying CONY, but the persistent SOB is not consistent with that recognized with him, the traumatic experience of not having control reassurance provided 3. Possible CONY has been brought up before when he was treated for cancer recommended outpt PSG with pulm, non-urgent 4. VTE proph: enoxaparin DW patient's at bedside. Code Visit Inpatient E&M: 22146 Subs Hosp L2
--- NOTE | 2019-10-04 11:09 | CASEMGMT ---
RN CM Assessment Presentation: STEMI, HALLEY to LAD, (hx of leukemia) Intro role of CM and purpose of RN CM assessment to patient and his . Demographics, PCP and Pharmacy verified. Pt denies any care needs. [place] savings card given to evelyn and explained. Pt will find out copay and notify cardiology office if any concerns arise. PCP: Dr. Juan Davila Specialists: Dr. Platt, cardiology, [facility], Dr. Li- oncology, [facility] Preferred Pharmacy: [facility]: yes LNOK: , Kerry Arana Living Arrangements: Lives independently with his . Denies care needs. Transportation: Drives DME: none HHC/SNF: none SW Referral: no Patient DC goals: Home on dc DC PLAN: Home on dc. Patient advised to contact CM if concerns re: dc arise. Filemon GALARZA RN ACM
--- NOTE | 2019-10-04 12:58 | NURSING ---
1240-pt called out and requesting that o2 be put on as had in icu for more comfort d/t anxiety. room darkened and po valium given. no other needs at this time. pt still reports feeling sob with exertion and like is breathing through a straw. will continue to monitor. reassurance given
--- NOTE | 2019-10-04 15:15 | EKG12_ITS ---
Test Reason : POST PCI Blood Pressure : / mmHG Vent. Rate : 088 BPM Atrial Rate : 088 BPM P-R Int : 154 ms QRS Dur : 072 ms QT Int : 336 ms P-R-T Axes : 051 -57 -17 degrees QTc Int : 406 ms Normal sinus rhythm Left axis deviation Low voltage QRS Inferior infarct , age undetermined , cannnot be excluded Anterolateral infarct, age undetermined Abnormal ECG Confirmed by ARSH AC, EMILY ([id number]), art editor LAZARO WATSON ([id number]) on 10/06/2019 11:05:05 AM Referred By: Evelio Robles Confirmed By:EMILY CABAN MD
[2019-10-04] MEDS: MELATONIN 3 MG TABLET PO (21:05)
[2019-10-04] MEDS: Atorvastatin Calcium 80 MG Tablet PO (21:06)
[2019-10-04] MEDS: Acetaminophen 325 MG Tablet 650 MG PO (21:06)
[2019-10-05 03:00] VITALS: BP 119/79; PULSE 86; RESP 18; TEMP 36.6; O2SAT 94
[2019-10-05 03:39] VITALS: PULSE 82
[2019-10-05 06:05] LABS: Absolute Lymphocyte Count 3.44 X10^3/uL (0.83-4.51); Absolute Neutrophil Count 8.5 X10^3/uL (2.0-7.7); Basophil# 0.06 X10^3/uL; Basophil% 0.4 % (0-1); Differential Indicated SCAN CRITERIA MET; Eosinophil# 0.13 X10^3/uL; Eosinophils% 0.9 % (0-5); Hematocrit 43.6 % (40-54); Hemoglobin 14.8 g/dL (13.0-16.5); Lymphocyte # 3.44 X10^3/ul (4.0); Lymphocyte % 24.4 % (19-41); Mean Corp Hgb Conc 33.9 g/dL (32-36); Mean Corpuscular Hgb 32.2 pg (27.0-32.0); Mean Platelet Vol. 9.7 fl (6.2-12.0); Monocyte# 1.86 X10^3/uL; Monocyte% 13.2 % (0-10); NRBC Flagged by Analyzer 0 % (0-5); Neutrophil # 8.52 X10^3/uL (2.7-7.7); Neutrophil % 60.7 % (47-70); POSITIVE DIFFERENTIAL YES; Platelet Count 232 K/mm3 (150-450); RBC Distribution Width CV 13.4 % (11.6-14.6); RBC Distribution Width SD 46.5 fl (35.1-43.9); Red Blood Count 4.59 M/mm3 (4.6-6.2); White Blood Count 14.1 K/mm3 (4.4-11.0)
[2019-10-05 06:29] LABS: Anion Gap 6 (5-15); BUN 17 mg/dL (7-18); BUN/Creat Ratio 15.3 RATIO (10-20); Calcium,Total 8.7 mg/dL (8.5-10.1); Chloride 107 mmol/L (98-107); Creatinine, Serum 1.11 mg/dL (0.70-1.30); EST Glomerular Filtration Rate 74 mL/min (>60); Est Glom Filt Rate - Afr Amer 90 mL/min (>60); Estimated Creatinine Clearance 87.39 ml/min; Glucose 121 mg/dL (74-106); Potassium 3.7 mmol/L (3.5-5.1); Sodium Level 138 mmol/L (136-145)
[2019-10-05 06:46] LABS: Differential Comment SCANNED; Reactive Lymphocyte 2+
[2019-10-05 07:00] VITALS: PULSE 91
[2019-10-05 08:00] VITALS: O2SAT 98
--- NOTE | 2019-10-05 08:55 | PN.CARD_ITS ---
Subjectve: Patient seen and evaluated. Appears to be doing quite well. Objective: Vital Signs Temp Pulse Resp BP Pulse Ox 98 F 91 18 119/79 98 10/05/19 03:00 10/05/19 07:00 10/05/19 03:00 10/05/19 03:00 10/05/19 08:00 Oxygen Flow Rate (L/min) 2 Oxygen Delivery Method Room Air Weight: 289 lb 10.998 oz Body Mass Index (BMI) 38.7 Intake and Output for Last 24 Hours 10/03/19 10/04/19 10/05/19 23:59 23:59 23:59 Intake Total 1198.5 / 1708.5 2929.9 / 2929.9 Output Total 3100 / 5350 4100 / 4100 Balance -1901.5 / -3641.5 -1170.1 / -1170.1 General: Awake, Alert, Oriented x 3 HEENT: PERRL, EOMI, Sclera Non Icteric Neck: Supple, Good ROM, No Lymph Node Enlargement Lungs: Clear to auscultation Cardiovascular: Regular Rhythm, Normal S1, Normal S2, No Murmurs, No Rubs, No Gallops Vascular: No Carotid Bruits, Normal Femoral Pulses, Normal Radial Pulses, Normal Dorsalis Pedal Pulse, Normal Posterior Tibial Pulses Abdomen: Bowel Sounds Present, Soft, Non Tender, No HSM, No Organomegaly Extremities: No Cyanosis, No Clubbing, No edema Musculoskeletal: No Erythema Skin: No Rashes Lymphatic: No Lymph Node Enlargement Neurological: No Focal Motor or Sensory Deficit Psych/Mental Status: Appropriate 10/05/19 05:00: WBC 14.1 H, RBC 4.59 L, Hgb 14.8, Hct 43.6, MCV 95.0 H, MCH 32.2 H, MCHC 33.9, Plt Count 232, MPV 9.7, Immature Gran % (Auto) 0.400, Neut % (Auto) 60.7, Lymph % (Auto) 24.4, [place] % (Auto) 13.2 H, Eos % (Auto) 0.9, Baso % (Auto) 0.4, Absolute Neuts (auto) 8.5 H, Nucleated RBC % 0 10/05/19 05:00: Sodium 138, Potassium 3.7, Chloride 107, Carbon Dioxide 25.0, A nion Gap 6, BUN 17, Creatinine 1.11, Est GFR (MDRD) Af Amer 90, Est GFR (MDRD) Non-Af 74, BUN/Creatinine Ratio 15.3, Glucose 121 H, Calcium 8.7 Rhythm: EKG: ECHO: Stress Test: Cardiac Cath: PCI: CT Surgery: Holter monitor: EPS: PPM: CXR: Chest CT Scan: Medical Necessity - Tobacco Use Smoking Status: Never smoker Tobacco Use: Chew Assessment/Plan 1. Status post acute anterior wall myocardial infarction * Patient appears to be doing fairly well though somewhat apprehensive * Would recommend an echocardiogram to assess left ventricular function * Continue low-dose beta-quinn * Will continue aspirin * Continue ticagrelor * Continue high intensity statin * Will start AGNES inhibitor as tolerated * Echocardiogram to assess left ventricular function shows that he has significant left ventricular systolic dysfunction with an estimated ejection fraction of 30 to 35% with anterior hypokinesis which is severe. * Depending on the findings further recommendations will be made. Patient also encouraged to start cardiac rehabilitation. 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 * Thank you for allowing me to participate in the care of your patient. Please don't hesitate to call if any issues arise
[2019-10-05 09:00] VITALS: BP 118/70; PULSE 94; RESP 20; TEMP 36.9; O2SAT 95
[2019-10-05] MEDS: Aspirin E.C. 81 MG Tablet PO (09:12)
[2019-10-05] MEDS: TICAGRELOR 90 MG TABLET PO (09:13)
--- NOTE | 2019-10-05 10:00 | EKG12_ITS ---
Test Reason : AM EKG Blood Pressure : / mmHG Vent. Rate : 082 BPM Atrial Rate : 082 BPM P-R Int : 154 ms QRS Dur : 076 ms QT Int : 388 ms P-R-T Axes : 052 -40 -34 degrees QTc Int : 453 ms Normal sinus rhythm Left axis deviation Low voltage QRS Lateral injury pattern ACUTE [place] / STEMI Abnormal ECG When compared with ECG of 04-OCT-2019 15:11, MANUAL COMPARISON REQUIRED, DATA IS UNCONFIRMED Confirmed by MARIAH AC, MAGDALENA ([id number]), food expeditor LAZARO WATSON ([id number]) on 10/08/2019 2:54:56 PM Referred By: Evelio Robles Confirmed By:ALBINO LEMUS MD
[2019-10-05] MEDS: Lisinopril 2.5 MG Tablet PO (10:11)
[2019-10-05] MEDS: Carvedilol 3.125 MG TABLET PO (10:11)
[2019-10-05] MEDS: Furosemide 40 MG Tablet PO (10:11)
--- NOTE | 2019-10-05 11:47 | PCM.DC ---
- Discharge Diagnoses Current Active Problems: Current Active and Chronic Problems (Last Updated 10/04/19 @ 06:54 by Nelly Thompson) Acute ST elevation myocardial infarction (STEMI) (Acute 10/03/19) You will use the following diet at home:: Cardiac Discharge Activity: - - ease back into activity Call your doctor if you observe: Shortness of breath, Chest pain Allergies/Adverse Reactions: Allergies lorazepam [From Ativan] Adverse Reaction (Verified 07/18/17 09:53) HALLUCINATIONS ondansetron [From Zofran (as hydrochloride)] Adverse Reaction (Verified 07/18/17 09:53) SEVERE HEADACHE Medications to take at Discharge Acyclovir [Zovirax] 400 mg PO BID 07/18/17 Multivitamin [Multiple Vitamins] 1 each PO DAILY 07/18/17 Acetaminophen [Tylenol] 1,000 mg PO Q8 #60 tablet 07/30/17 Oxycodone [Oxyir] 5 - 10 mg PO Q6H PRN PRN #60 tablet 07/30/17 Acetaminophen [Tylenol Tablet] 650 mg PO Q6H PRN PRN tablet 10/05/19 Aspirin E.C. [Ecotrin] 81 mg PO DAILY@0800 tablet 10/05/19 Atorvastatin Calcium [Lipitor] 80 mg PO QHS #30 tab 10/05/19 Carvedilol [Coreg (Beta Masoud)] 3.125 mg PO BID #60 tab 10/05/19 Furosemide [Lasix] 40 mg PO DAILY #30 tab 10/05/19 Lisinopril [Zestril] 2.5 mg PO DAILY #30 tab 10/05/19 Ticagrelor [Brilinta] 90 mg PO BID #60 tab 10/05/19 The following prescriptions were given: Ticagrelor [Brilinta] 90 mg PO BID #60 tab Transmission Status: Pending to [facility] Carvedilol [Coreg (Beta Masoud)] 3.125 mg PO BID #60 tab Transmission Status: Pending to [facility] Furosemide [Lasix] 40 mg PO DAILY #30 tab Transmission Status: Pending to [facility] Atorvastatin Calcium [Lipitor] 80 mg PO QHS #30 tab Transmission Status: Pending to [facility] Lisinopril [Zestril] 2.5 mg PO DAILY #30 tab Transmission Status: Pending to [facility] [facility] Primary Care Physician: Juan Davila [Primary Care Provider] - Within 1 Week Test Results: Test results from this visit will be discussed in further detail at your follow-up appointment, if applicable. Please Follow Up With: Amado Platt MD When: 4-6 weeks Proposed Discharge Date: 10/05/19
--- NOTE | 2019-10-05 11:49 | PCM.DC.SUM ---
Discharge Date and Diagnosis - Problem List Patient Problems: Active and Suspected Problems (Last Updated 10/04/19 @ 06:54 by Nelly Thompson) Acute ST elevation myocardial infarction (STEMI) (Acute 10/03/19) Date of Admission: 10/03/19 Date of Discharge: 10/05/19 - Primary Discharge Diagnosis Active and Suspected Problems (Last Updated 10/04/19 @ 06:54 by Nelly Thompson) Acute ST elevation myocardial infarction (STEMI) (Acute 10/03/19) Ischemic cardiomyopathy - Secondary Discharge Diagnosis Chronic Problems (Last Updated 10/04/19 @ 06:54 by Nelly Thompson) Atherosclerosis of coronary artery of [place] heart without angina pectoris (Chronic) Hospital Course and Treatment Imaging Results: Clinical Impression(s) from Imaging Studies Chest X-Ray 10/03/19 13:18 IMPRESSION: 1. No airspace consolidation or pleural effusion. 2. Hypoinflation. Electronically Signed: Dean Lerner MD ([place]) at 14:03 EST , Service support , Chest CTA 10/04/19 03:31 IMPRESSION: Normal CTA chest examination, without a demonstrated pulmonary embolism or arterial dissection. Electronically Signed: Andrea Fernando MD at 5:38 EST , Service support , Amado Platt, cardiology Operations: None Procedures: 2-D Echocardiogram, Cardiac catheterization Summary of Care Provided: The patient is a 48 year old M presents w chest pain. Found to have a STEMI. Went to cath and had a HALLEY to mid LAD on the . His hospitalization was complicated by a some shortness of breath that he experienced over the past couple nights patient describing air hunger. Patient underwent a CT angiogram of the chest that showed no pulmonary embolism. Patient did have an echocardiogram showed an EF of 30 to 35%. For home-going, patient will be on Brilinta, aspirin, high intensity statin, lisinopril, carvedilol and furosemide. Patient will follow this primary care doctor in 1 1 [address] Alba in 4 to 6 weeks. Patient also be initiated at cardiac rehab per the discretion of cardiology. [] Patient Problems: Active and Suspected Problems (Last Updated 10/04/19 @ 06:54 by Nelly Thompson) Acute ST elevation myocardial infarction (STEMI) (Acute 10/03/19) - Physical Exam Vitals/I&O's: Vital Signs Temp Pulse Resp BP Pulse Ox 36.9 C 94 20 H 118/70 95 10/05/19 09:00 10/05/19 09:00 10/05/19 09:00 10/05/19 09:00 10/05/19 09:00 Oxygen Flow Rate (L/min) 2 Oxygen Delivery Method Room Air Weight: 131.4 kg Body Mass Index (BMI) 38.7 Intake and Output for Last 24 Hours 10/03/19 10/04/19 10/05/19 23:59 23:59 23:59 Intake Total 1198.5 / 1708.5 2929.9 / 2929.9 Output Total 3100 / 5350 4100 / 4100 Balance -1901.5 / -3641.5 -1170.1 / -1170.1 General: Alert, No apparent distress HEENT: Atraumatic, Normocephalic Oral: Moist Mucosa, No Gingival or Mucosal Lesions/ Ulcerations Neck: No Nodes, Trachea Midline Lungs: Clear to auscultation, Normal air movement, No rhonchi, No wheeze, No rales Cardiovascular: Regular rate, Regular Rhythm, Normal S1, Normal S2, No murmurs Abdomen: Bowel Sounds Present, Soft, Non Tender, Non-Distended Extremities: No edema, No Calf Tenderness Laboratory Results 10/05/19 05:00: WBC 14.1 H, RBC 4.59 L, Hgb 14.8, Hct 43.6, MCV 95.0 H, MCH 32.2 H, MCHC 33.9, RDW Std Deviation 46.5 H, RDW Coeff of Yunior 13.4, Plt Count 232, MPV 9.7, Immature Gran % (Auto) 0.400, Neut % (Auto) 60.7, Lymph % (Auto) 24.4, [place] % (Auto) 13.2 H, Eos % (Auto) 0.9, Baso % (Auto) 0.4, Absolute Neuts (auto) 8.5 H, Absolute Lymphs (auto) 3.44, Nucleated RBC % 0, Differential Comment SCANNED, Diff Path Review May foll, Reactive Lymphocytes 2+ 10/05/19 05:00: Sodium 138, Potassium 3.7, Chloride 107, Carbon Dioxide 25.0, Anion Gap 6, BUN 17, Creatinine 1.11, Estim Creat Clear Calc 87.39, Est GFR (MDRD) Af Amer 90, Est GFR (MDRD) Non-Af 74, BUN/Creatinine Ratio 15.3, Glucose 121 H, Calcium 8.7 Current Medications Acetaminophen (Tylenol) 650 mg PO Q6H PRN PRN PRN Reason: Pain Score 1-3/Temp > 100.7 F Last Admin: 10/04/19 21:06 Dose: 650 mg Documented by: Al Hydroxide/Mg Hydroxide (Mylanta Ii) 30 ml PO Q6H PRN PRN PRN Reason: Gastric Burning Aspirin (Ecotrin) 81 mg PO DAILY@0800 [facility] Last Admin: 10/05/19 09:12 Dose: 81 mg Documented by: Atorvastatin Calcium (Lipitor) 80 mg PO QHS [facility] Last Admin: 10/04/19 21:06 Dose: 80 mg Documented by: Atropine Sulfate () 0.5 mg IV UD PRN PRN Reason: HR <50 bpm Carvedilol (Coreg) 3.125 mg PO BID [facility] Last Admin: 10/05/19 10:11 Dose: 3.125 mg Documented by: Diazepam (Valium) 2 mg PO 4X/DAY PRN PRN PRN Reason: ANXIETY Last Admin: 10/04/19 21:06 Dose: 2 mg Documented by: Furosemide (Lasix) 40 mg PO DAILY [facility] Last Admin: 10/05/19 10:11 Dose: 40 mg Documented by: Sodium Chloride () 250 mls @ 15 mls/hr IV .[id number] PRN PRN Reason: Saline Flush Sodium Chloride () 250 mls @ 15 mls/hr IV .[id number] PRN PRN Reason: Additional IVPB Infusion Labetalol HCl (Trandate) 5 mg IV X1 PRN PRN Reason: SBP > 160 when pulling sheath Lisinopril (Zestril) 2.5 mg PO DAILY [facility] Last Admin: 10/05/19 10:11 Dose: 2.5 mg Documented by: Magnesium Hydroxide (Milk Of Magnesia) 30 ml PO DAILY PRN PRN PRN Reason: Constipation Melatonin (Melatonin) 3 mg PO QHS PRN PRN PRN Reason: INSOMNIA Last Admin: 10/04/19 21:05 Dose: 3 mg Documented by: Morphine Sulfate () 4 mg IV Q3H PRN PRN PRN Reason: Pain Score 6-10/10 Nitroglycerin (Nitrostat) 0.4 mg SUBLINGUAL Q5M PRN PRN Reason: CARDIAC/CHEST PAIN Last Admin: 10/03/19 13:30 Dose: 0.4 mg Documented by: Oxycodone HCl (Oxyir) 5 mg PO Q4H PRN PRN PRN Reason: Pain Score 4-5/10 Last Admin: 10/03/19 22:49 Dose: 5 mg Documented by: Promethazine HCl (Phenergan) 25 mg IM Q6H PRN PRN PRN Reason: Breakthrough Nausea/Vomiting Sodium Chloride () 500 ml IV BOLUS PRN PRN Reason: VASO-VAGAL PROTOCOL Sodium Chloride () 10 - 40 ml IV UD PRN PRN Reason: SALINE FLUSH Last Admin: 10/04/19 21:07 Dose: 20 ml Documented by: Sodium Chloride () 10 - 40 ml IV UD PRN PRN Reason: SALINE FLUSH Temazepam (Restoril) 15 - 30 mg PO BID PRN PRN PRN Reason: ANXIETY/RESTLESSNESS Last Admin: 10/03/19 20:28 Dose: 30 mg Documented by: Ticagrelor (Brilinta) 90 mg PO BID [facility] Last Admin: 10/05/19 09:13 Dose: 90 mg Documented by: Discharge Diet: 1800 Calorie Control Diet Discharge Activity: - - ease back into activity Call your doctor if you observe: Shortness of breath, Chest pain Home Medications: Medications to take at Discharge Acyclovir [Zovirax] 400 mg PO BID 07/18/17 Multivitamin [Multiple Vitamins] 1 each PO DAILY 07/18/17 Acetaminophen [Tylenol] 1,000 mg PO Q8 #60 tablet 07/30/17 Oxycodone [Oxyir] 5 - 10 mg PO Q6H PRN PRN #60 tablet 07/30/17 Acetaminophen [Tylenol Tablet] 650 mg PO Q6H PRN PRN tablet 10/05/19 Aspirin E.C. [Ecotrin] 81 mg PO DAILY@0800 tablet 10/05/19 Atorvastatin Calcium [Lipitor] 80 mg PO QHS #30 tab 10/05/19 Carvedilol [Coreg (Beta Masoud)] 3.125 mg PO BID #60 tab 10/05/19 Furosemide [Lasix] 40 mg PO DAILY #30 tab 10/05/19 Lisinopril [Zestril] 2.5 mg PO DAILY #30 tab 10/05/19 Ticagrelor [Brilinta] 90 mg PO BID #60 tab 10/05/19 Following Prescrptions Were Given to Patient: Ticagrelor [Brilinta] 90 mg PO BID #60 tab Transmission Status: Pending to [facility] Carvedilol [Coreg (Beta Masoud)] 3.125 mg PO BID #60 tab Transmission Status: Pending to [facility] Furosemide [Lasix] 40 mg PO DAILY #30 tab Transmission Status: Pending to [facility] Atorvastatin Calcium [Lipitor] 80 mg PO QHS #30 tab Transmission Status: Pending to [facility] Lisinopril [Zestril] 2.5 mg PO DAILY #30 tab Transmission Status: Pending to [facility] Primary Care Physician: Juan Davila [Primary Care Provider] - Within 1 Week Please Follow Up With: Amado Platt MD When: 4-6 weeks Disposition: Home Minutes spent on discharge:: 32 Patient Condition:: Good Medical Necessity - Tobacco Use Smoking Status: Never smoker Tobacco Use: Chew Meaningful Use Info Meaningful Use Diagnoses (Choose all that apply): AMI - AMI/Post PCI/Angioplasty Aspirin given w/in 24hrs of arrival?: Yes ASA at discharge?: Yes Antiplatelet Therapy at Discharge:: Yes Statins at discharge?: Yes Nicholas/ARB at discharge?: Yes Beta Masoud at discharge?: Yes Done w/ Acute IL measure.: Yes Documented LVEF (%): 30 Code Visit Inpatient E&M: [id number] Disch Hosp
[2019-10-05 12:13] LABS: Pathologist Review Reviewed
--- NOTE | 2019-10-05 12:20 | CASEMGMT ---
RN CM NOTE: Discharge order is in. RN CM to room. Intro self and role of RN CM. Pt/ deny having any discharge needs or concerns. They voice understanding of [employer] savings card and to follow up with plant senior manager with any cost concerns of medication. Mina CARDOZAN RN CM
[2019-10-05 12:23] LABS: Pathologist Review Reviewed
--- NOTE | 2019-10-05 13:47 | NURSING ---
Reviewed and agreed on all charting with Gabriel Booth RN
== END 2019-10-05 13:25 | disposition home or self-care (01) | DRG 247 ==
LOC: ED 13:28 → ICU 13:40 → PCU 10-04 11:44
PROVIDERS: Admitting Provider Internal Medicine; Emergency Provider Emergency Medicine; PCP Family Medicine; Referring Provider Specialist
DX: I21.09 ST elevation (STEMI) myocardial infarction involving other coronary artery of anterior wall (principal); Z94.84 Stem cells transplant status; C92.01 Acute myeloblastic leukemia, in remission; I25.10 Atherosclerotic heart disease of native coronary artery without angina pectoris; I25.5 Ischemic cardiomyopathy; Z86.711 Personal history of pulmonary embolism; M1A.9XX0 Chronic gout, unspecified, without tophus (tophi); Z79.891 Long term (current) use of opiate analgesic; Z79.899 Other long term (current) drug therapy; Z92.21 Personal history of antineoplastic chemotherapy; D75.1 Secondary polycythemia; Z68.39 Body mass index [BMI] 39.0-39.9, adult; E66.01 Morbid (severe) obesity due to excess calories; Z86.718 Personal history of other venous thrombosis and embolism; Z82.49 Family history of ischemic heart disease and other diseases of the circulatory system; F17.220 Nicotine dependence, chewing tobacco, uncomplicated
CPT/HCPCS: 36415; 71045; 71275; 80048; 80053; 80061; 82550; 84484; 85025; 85347; 85610; 85730; 92941; 93005; 93306; 93454; 99152; 99153; 99284; J7030; J7040; Q9957; Q9967; A4216; C1725; C1769; C1874; C1887; C1894; C8929; C9606; J1940

== ENCOUNTER → 2019-10-14 09:46 | Outpatient (CLI) | payer MEDICARE, SELFPAY ==
[2019-10-03 15:43] VITALS: BMI 38.7
[2019-10-04 08:24] VITALS: BMI 39.1
[2019-10-14 08:42] VITALS: BMI 38.7
--- NOTE | 2019-10-14 10:32 | PCM.CR.HP2 ---
CR - History & Physical - General Arrival date:: 10/14/19 Arrival time:: 09:45 Date of Referral:: 10/03/19 Date of CR Evaluation:: 10/14/19 Referring Physician: Dr. Amado Platt Primary Diagnosis: STEMI, PCI w/coronary stent - History of Present Cardiac Event Onset Date: Enter Onset Date of cardiac illnesses in Comment field below Acute Myocardial Infarction within 12 months:: Yes - 10/03/19 PTCA or coronary stenting:: Yes - 10/03/19 single stent in LAD Type of Symptoms:: severe chest pain, thought was heart burn from foods ate night before. Interventions with present event:: Immediate heart cath Were there any complications?: none - Medications Home Medications: Ambulatory Orders Medication Instructions Recorded Acyclovir [Zovirax] 400 mg PO BID 07/18/17 Multivitamin [Multiple Vitamins] 1 ea PO DAILY 07/18/17 Acetaminophen [Tylenol Tablet] 650 mg PO Q6H PRN PRN tab 10/05/19 Aspirin E.C. [Ecotrin] 81 mg PO DAILY@0800 tab 10/05/19 Atorvastatin Calcium [Lipitor] 80 mg PO QHS #30 tab 10/05/19 Carvedilol [Coreg (Beta Masoud)] 3.125 mg PO BID #60 tab 10/05/19 Furosemide [Lasix] 40 mg PO DAILY #30 tab 10/05/19 Lisinopril [Zestril] 2.5 mg PO DAILY #30 tab 10/05/19 Ticagrelor [Brilinta] 90 mg PO BID #60 tab 10/05/19 allopurinol 100 mg tablet 100 mg PO BID 10/14/19 ascorbic acid (vitamin C) 1,000 mg 1 g PO DAILY tab 10/14/19 tablet calcium carb-magnesium carb 250 1 tab PO .q hs tab 10/14/19 mg-300 mg tablet cholecalciferol (vitamin D3) 125 5,000 unit PO DAILY 10/14/19 mcg (5,000 unit) capsule potassium citrate 15 mEq (1,620 15 meq PO BID 10/14/19 mg) tablet,extended release tamsulosin 0.4 mg capsule 0.4 mg PO QHS 10/14/19 - Allergies Allergies/Adverse Reactions: Allergies lorazepam [From Ativan] Adverse Reaction (Verified 10/14/19 08:29) HALLUCINATIONS ondansetron [From Zofran (as hydrochloride)] Adverse Reaction (Verified 10/14/19 08:29) SEVERE HEADACHE - Sleep Disorder Evaluation Hx of Sleep Apnea: No Do you snore loudly (louder than talking or can be heard through closed doors)?: Yes Do you often feel tired/ fatigued/ sleepy during daytime?: Yes - right now yes. Has anyone observed you stop breathing during sleep?: No History of Hypertension (for STOP score): No STOP Results: Positive Advanced Directives - Advanced Directives Power of Operations Supervisor: No Living Will: No Advance Directives Information Provided: Yes Advance Directives on File: No DNR Order?:: No - MOLST See MOLST form: No Past Medical History - Past Medical Illness Medical History: Past Medical History (Last Reviewed 10/14/19 @ 08:27 by Jelly Ramirez) Acute ST elevation myocardial infarction (STEMI) (Acute) Onset Date: 10/03/19 I21.3 Atherosclerosis of coronary artery of [place] heart without angina pectoris (Chronic) I25.10 History of pulmonary embolus (PE) (Resolved) Z86.711 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 BMI 39.0-39.9,adult Z68.39 Gout M10.9 History of DVT of lower extremity Z86.718 - Past Surgical History Surgical History: Past Surgical History (Last Updated 10/14/19 @ 08:28 by Jelly Ramirez) History of coronary artery stent placement (Resolved) Onset Date: 10/03/19 Z95.5 PCI-HALLEY-Mid LAD w/ 3.0 x 20 mm Synergy Stent 10/03/2019 History of cholecystectomy Z90.49 History of kidney surgery Z98.890 History of total right hip arthroplasty Z96.641 - Family History Summary Family History: Family History (Last Updated 10/14/19 @ 10:38 by Melvin Ngo, ASSESSMENT CONSULTANT, PAINTER BOTTOM, BS) Father Diabetes Heart disease Myocardial infarction Heart disease Mother Cancer Hypertension Brother Myocardial infarction Heart disease Social History - Smoking History Smoking Status: Never smoker Hx Tobacco Use: No Hx Smoking Exposure: No - Alcohol Use Alcohol Usage: Yes - occasional special occasions/holiday nothing excessive - Substance Abuse Hx Substance Use: No - Occupation 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 Recreational Activities: I am able to engage in a few activities Social Environment - Status Marital Status: - Current Living Arrangements Living Environment:: Spouse - Children How many children do you have?: 3 Do any of your children live nearby?: Yes - [place] - Safety Do you feel safe in your surroundings?: Yes - Assistance Do you need any assistance at home?: none Review of Systems - Review of Systems Hints: Right click = Denies (Slash). Left click = Reports ([place]) Review of Present Symptoms: Reports: Shortness of Breath at Rest - only at times, Shortness of Breath with Exertion - worse with activities. Seeing Marisol or Dr. Platt in 2 weeks because of the Brilinta. They want me on it for 30-days then may switch over to Plavix., Angina - feels like pressure in chest since been home., Dizziness/Lightheadedness - minor lightheadedness with exertion adn rest., Fatigue, Appetite - Normal, Appetite - Special Diet - no added sugars, low carb, low sodium. Increased proteins and lowere carbs., Sleep - Normal - kind of back to normal now. First week home was tough to sleep adn rest fully.. Denies: Heart Arrhythmia/Irregularities - Pain Is Patient Pain Free?: No Pain Location: none Pain Level: 0/10 Risk Factor Assessment - Chief Complaint Chief Complaint: Patient is 48 yr old male previous STEMI and PCI intervention in September who presents to CR today under the care of Dr. Platt, - Vital Signs Temperature: 98.5 F Respiratory Rate: 16 Pulse Ox: 95 Blood Pressure: 118/70 Nailbeds:: pink - Pulse Pulse Rate: 88 Pulse Rhythm: Regular - Hypertension How long have you been treated?: recent since the PA Blood Pressure Sitting - Left Arm: 118/70 - Stress Stress: Recent - mortality been heavy on my mind, dealt with cancer and then this. All males have in their 50's on fathers side., Work-related - being able to get back to work, Home/Family - finances and being able to get back to work. - Blood Cholesterol/Lipids Total Cholesterol (mg/dL) Goal = less than 200 mg/dL: 193 HDL Cholesterol (mg/dL) Goal = less than 40 mg/dL: 34 LDL Cholesterol (mg/dL) Goal = less than 70 mg/dL: 80 Triglycerides (mg/dL) Goal = less than 150 mg/dL: 396 - Diabetes Nutrition Referral for Diabetes: No - Obesity Height: 6 ft 1 in Weight:: 281 lb - today Weight in Pounds: 281.0 lbs Weight Source: Standing Scale Body Mass Index (BMI): 37.0 Nutritional Referral for Obesity: Yes - Why Weight Program - Physical Inactivity Physical Inactivity: Reg Exercise 30 min/day, Physically demanding job - Risk Stratification Risk Guidelines: Lowest Risk: Risk Factor for Smoking, Risk Factor for Dyslipidemia, Risk Factor for Diabetes, Risk Factor for Hypertension, Risk Factor for Sedentary Lifestyle, Risk Factor for Depression, Highest Risk: Risk Factor for Obesity - For Smoking Smoking Risk Guidelines: Smoking Low Risk: None or quit greater than 6 months ago. Smoking Moderate Risk: Smoker or quit 6 months or less ago. Smoking High Risk: Smoker - For Dyslipidemia Dyslipidemia Risk Guidelines: Low Risk: Moderate Risk: High Risk: 15-25% fat 25.1-29% fat >/= 30% fat. <7% sat fat 7-9% sat fat >9% sat fat. <150 mg chol 150-299 mg chol >/= 300 mg chol. LDL <100 LDL 100-129 LDL >/= 130. Chol/HDL ratio <5.0 Chol/HDL ratio 5.0-6.0 Chol/HDL ratio >6.0. Triglycerides <100 Triglycerides 100-149 Triglycerides >/= 150 - For Diabetes Mellitus Diabetes Risk Guidelines: Diabetes Low Risk: HgA1c <6.5% and/or FBG <120. Diabetes Moderate Risk: HgA1c 6.6-7.9% and/or FBG 120-180. Diabetes High Risk: HgA1c >/= 8% and/or FBG >180 - For Obesity/Overweight Obesity/Overweight Risk Guidelines: Obesity Low Risk: BMI <25.0. Obesity Moderate Risk: BMI 25-29.9. Obesity High Risk: BMI >/= 30.0 - For Hypertension Hypertension Risk Guidelines: Hypertension Low Risk: Systolic <120 and Diastolic <80. Hypertension Moderate Risk: Systolic 120-139 and Diastolic 80-89. Hypertension High Risk: Systolic >/= 140 and Diastolic >/= 90 - For Sedentary Lifestyle Sedentary Lifestyle Risk Guidelines: Sedentary Lifestyle Low Risk: >/= 1,500 kcal/week. Sedentary Lifestyle Moderate Risk: 700-1,499 kcal/week. Sedentary Lifestyle High Risk: < 700 kcal/week - For Depression Depression Risk Guidelines: Depression Low Risk: Not clinically depressed. Depression Moderate Risk: Mildly depressed. Depression High Risk: Clinically depressed - Family History Family History: Family History (Last Updated 10/14/19 @ 10:38 by Melvin Ngo, ASSESSMENT CONSULTANT, PAINTER BOTTOM, BS) Father Diabetes Heart disease Myocardial infarction Heart disease Mother Cancer Hypertension Brother Myocardial infarction Heart disease Motivation - Motivation to Participate On a scale of 1 to 10, how prepared are you to commit to attending program?: 10 What do you see as barriers to successfully being able to complete the program?: none What do you see as the benefits of succesfully completing the program? In other words, what do you hope to get out of participating in the program?: heart function improvement, more knowledge of heart disease Are there issues you are dealing with that will interfere with completing the program?: none Do you have a spouse or signficant other, family or friends who will help support you to complete the program?: yes
[2019-10-14 10:50] VITALS: BP 118/70; PULSE 88; RESP 16; TEMP 36.9; O2SAT 95; BMI 37.0
--- NOTE | 2019-10-14 10:58 | PCM.CR.ITP ---
Diagnosis - General Information Admitting Diagnosis: STEMI, PCI W/STENTING Personal Learning Style:: Audio/Visual, Written Barriers to Learning: No Barriers Stage of change r/t lifestyle modifications:: Action Gave educational material for:: Treating Heart Disease, Emotions & Heart Disease, Stress Management & Relaxation, Sleep Disorders & Heart Disease, How The Heart Works, What it means to have Heart Disease, How Coronary Artery Disease is Diagnosed, Heart Procedures, What Heart Medications Do, Risk Factors & Modifications, Living an Active Life, Nutrition - Education/Goals Individual Counseling: Initial Assessment: Abnormal Cholesterol Levels, Overweight/Obesity Cardiac Rehabilitation Goals: 1. Maintain the individual as the primary focus of care. 2. To improve the patient's quality of life. 3. Identification of cardiac risk factors and provide cardiac risk factor management. 4. Enhance the psychosocial status of the patient. 5. Reconditioning enough to allow the patient to resume customary activities. 6. Control symptoms of cardiac disease Personal Goals: Initial Assessment: Improve management of stress and emotions, Improve energy level, Participate in home exercise program, Get back to work, or to resume activities faster, Improve knowledge of cardiac disease, Improve muscle strength and endurance, Improve diet and eating habits (eat healthier), Control risk factors (learn risk factor modification) Scale for measuring improvement of personal goals: Enter appropriate number in Comments. 2 = Unchanged. 3 = Slightly Better. 4 = Moderate Improvement. 5 = Met my Goal - Diagnosis & Disease Process Outcomes/Goals: Pt IDs own risk factors & lifestyle modifications by Session 10, Verbalizes symptoms of angina & response by session 3., Pt independently manages Plan/Interventions: Assist Pt to ID & engage in lifestyle modification to reduce CVD risk, Instruct on individual risk factors, Review symptoms of angina & emergency actions, Review secondary diagnosis & identify educational needs. - Safety Referral to Physical Therapy: No Referral to [facility] Case Management: No Fall Risk Assessed:: Yes Assistive Devices:: None Exercise - Initial Assessment - Visit Date of Eval: 10/14/19 Session #:: 0 - INITIAL EVAL Mets: Pre-: >7 METS for 30 minutes by discharge - Physician Prescribed Exercise Modalities: Treadmill, Rower, Airdyne Frequency: 3x/week for 12 weeks [36 sessions] Intensity: 60-80% of age predicted maximum heart rate reserve Current METSs:: 4 Target Heart Rate:: 110-144 Resting Blood Pressure: 118/70 EKG Type: SINUS RHYTHM Current Physical Activity or Exercising minutes: 60 WALKING - Outcomes & Goals Goals:: Verbalizes understanding of THR, RPE & goal METS by session 6, Documents in home exercise log/reports 30 min aerobic 5 day/wk by DC, Demonstrates accurate pulse taking by DC - Intervention & Plan Exercise Program Goals: Instruct on personal THR & RPE, Instruct on MET level & personal MET goal, Show patient to take own pulse /validate performance until accurate, Instruct on home exercise - Outcomes & Goals Outcomes/Goals: Demonstrates correct Warm-up/exercise Cool-Down (S3) if = 2.5 METs, Verbalizes symptoms of exercise intolerance by Session 3 (S3), Demonstrate safe equipment use (S3) & follows exercise prescrition (6) - Intervention & Plan Plan/Intervention: Instruct warm-up & cool-down if exercising at > 2 METs, Instruct on symptoms of exercise intolerance & actions to take, Instruct & monitor on saf, Assess intial functional capacity & safety risk Nutrition - Initial Assessment - Program Goals Nutrition Program Goals: LDL <100 optimal. 100 - 129 Near optimal. 130 - 159 Borderline High. 160 - 189 High. Total Cholesterol <200 desirable. 200 - 239 Borderline High. >/= 240 High. HDL < 40 Low >/=60 High. Triglycerides <150 desirable. <199 optimal. VlDL 5 - 40. HgbA1C <7%. BMI <25 - Visit Date of Assessment:: 10/14/19 Session #:: 0 - INITIAL EVAL - Cholesterol/Lipids Triglycerides (mg/dL): 396 Total Cholesterol (mg/dL): 193 LDL Cholesterol (mg/dL): 80 HDL Cholesterol (mg/dL): 34 Determine presence & major risk factors that modify LDL goal: Low HDL cholesterol <40 mg/dL*, Family history of premature CHD in Male < 55 years: female <65 yearsFa, Age men > 45 years; women >/= 55 years Outcomes/Goals: Pt IDs own risk factors & lifestyle modifications by Session 10, Verbalizes symptoms of angina & response by session 3., Pt independently manages Intervention/Plan: Instruct on personal lipid levels & lipid goals/NCEP guidelines Referral to dietitian:: Yes - Diabetes (Other Core Measures) Diabetes Type: Not Applicable Insulin dependent injection/pump?: No Non-Insulin Dependent?: No Do you monitor your blood sugar at home?: No Referral to Diabetic Clinic:: No - Weight Mgt (Other Care) Not Applicable: Yes Height: 6 ft 1 in Weight:: 282 lb BMI: 37.2 Diagnosis Overweight/Obesity BMI> 30% ICD-10 E66: Yes Diagnosis High BMI/Morbid Obesity BMI> 35% ICD-10 Z68: Yes Expected Body Weight: 258 lb Outcomes/Goals: Pt sets, maintains & shows weight loss goal & trend during rehab Intervention/Plan: Instruct on ideal BMI & set weight loss goal w/patient, Assist pt to ID & incorporate diet changes for weight loss by S9, Refer to Structured Weight Loss program as appropriate, Encourage goal of using 250-300dcal per session for weight loss - Healthy Eating Habits Will attend diet classes:: Yes Outcomes/Goals:: Consume diet rich in vegs,fruits,whole grain/high fiber,fish,lean meat, Limit sat/trans fats,cholesterol & added salts & sugars Intervention/Plan:: Assess current eating habits - Education Gave educational materials for:: Healthy eating Medical - Initial Assessment - Visit Date of Eval: 10/14/19 Session #:: 0 - INITIAL EVAL - Medication Compliance Preventative Medication(s):: Aspirin, Ticagrelor/P2Y12 inhibitor, Statin/lipid H/O mental health issues: depression, anxiety, or addiction?: No Doesn?t believe in the benefits of treatment?: No Believes medications are unnecessary or harmful?: No Has a concern about medication side effects?: No Expresses concern over the cost of medications?: No Outcomes/Goals: Verbalizes medications,desired effect & common side effects @ DC, Pt self-reports following medication regimen, Keeps card in wallet w/medications listed by DC Interventions/plans: Instruct on medication effects & side effects, Review medication list w/patient every two weeks, Instruct importance of taking meds as ordered & assist problem solving - Tobacco Use Tobacco Use: Non-smoker Do you use smokeless tobacco?: No - Hypertension Resting Blood Pressure:: 118/70 [place] [employer] Hypertension Guidelines: [place] [employer] Hypertension Guidelines. Normal BP Less than 120/80. Elevated BP 120/80. Hypertension Stage 1: BP 130-139/80-89. Hypertesnion Stage 2: BP 140 or higher/90 or higher. Hypertension Crisis: BP higher than 180/120 Outcomes/Goals: Able to verbalize/achieve optimal blood pressure <130/80, Incorporates diet changes & exercise for blood pressure control by DC Interventions/plan: Instruct on optimal blood pressure, hypertension & medications, Instruct on effects of sodium, alcohol, stress, exercise &hypertension - Tobacco Cessation Referral Smoking Cessation Referral:: No Individual Education/Counseling:: No Education Schedule Given:: Yes Psychosocial - Initial Assess - VIsit Date of Eval: 10/14/19 Session #:: 0 - INITIAL EVAL Not Applicable: No History of previous Mental disease:: No History of Emotional Disorders: Anxious - DEALING WITH THIS RECENT HEART ATTACK , Depression - SINCE STEMI, DEALING WITH THE MORTALITY ASPECT. ALL COKER MEN HAVE IN THEIR 50s FROM MIs Self-reported stressors: Financial, Medical/Health, Recent Illness - Target Goals Target Goals: Assess presence or absence of depression. Using a valid screening tool, maximizes coping skills. Positive support system - Psychosocial Test Tool Used:: [employer] [place] QOL Cardiac, PHQ-9 Questionnaire phq-9 Severity: Severity. 1-4 Minimal Depression. 5-9 Mild Depression. 10-14 Moderate Depression. 15-19 Moderately Sever Depression. 20-27 Severe Depression. Rule: Total Score:: 8 - Referral to Behavioral Health PS - Interventions: Yes Referral to Behavioral Health if PHQ-9 score >9: - Patient could benefit from individual counseling dealing with near experience and mortality aspect., Yes Referral to Physician if PHQ-9 if score is 5-9:, Yes Attend Stress Management Classes, No Referral to [facility] - Outcomes/Goals: See list Psychosocial Outcomes/Goals:: ID's personal stressors & 2 strategies to manage stress by discharge - Intervention/Plan: See List Interventions/Plan:: Assess stressors,coping strategies & signs of derpression on admission, Instruct/assist pt to develop coping & personal stress Mgt strategies, Refer to Behavioral Health if appropriate, Refer to Physician if appropriate, Instruct patient to recognize signs & symptoms of depression, Instruct patient to recog Patient Health Questionnaire Initial Assessment 1. Little interest or pleasure in doing things: Several days 2. Feeling down, depressed, or hopeless: Several days 3. Trouble falling or staying asleep, or sleeping too much: Several days 4. Feeling tired or having little energy: More than half the days 5. Poor appetite or overeating: Several days 6. Feeling bad about yourself -- or that you are a failure or have let yourself or your family down: Several days 7. Trouble concentrating on things, such as reading the newspaper or watching television: Several days 8. Moving or speaking so slowly that other people could have noticed. Or the opposite - being so fidgety or restless that you have been moving around a lot more than usual: Not at all 9. Thoughts that you would be better off , or of hurting yourself in some way: Not at all How difficult have these problems made it for you to do your work, take care of things at home, or get along with other people?: Extremely difficult Total Score: 8 YASIR-Q SV Test - Statements CAD is a disease of the arteries in the heart: False Examples of risk factors for heart disease: True Angina is chest pain or discomfort: True The benefits of resistance training include: True Eating more meat and dairy products: False Anti-platelet medications such as aspirin are important: True The only effective way to manage stress: False An exercise warm-up slowly increases heart rate: True Prepared, processed foods usually have high sodium: True Depression is common after a heart attack: True The statin medications lower cholesterol: True To control blood pressure, lower the amount of sodium: True If someone gets chest discomfort during walking: False Transfats are partially hydrogenated vegetable oils: True Sleep apnea that is not treated increases the risk: False To control cholesterol, one should become a vegetarian: False Someone knows if he/she is exercising at the right level: False Diabetes cannot be prevented with exercise & health eating: False Stress is a large risk for heart attack: True A diet that can help lower blood pressure is rich in: True - Total Score Total Correct Responses: 19 Self-Efficacy Initial Assessment We would like to know how confident you are in doing certain activities. Please select your confidence level for:: Select your confidence level for the following using the scale 1-10 where 1 is not at all confident and 10 is totally confident. Your score is the average of all 6 responses. Fatigue: How confident are you that you can keep the fatigue caused by your disease from interfering with the things you want to do? Select Number: 3 Physical Discomfort or Pain: How confident are you that you can keep the physical discomfort or pain of your disease from interfering with the things you want to do? Select Number: 5 Emotional Distress: How confident are you that you can keep the emotional distress caused by your disease from interfering with the things you want to do? Select Number: 3 Other Symptoms or Health Problems: How confident are you that you can keep other symptoms or health problems from interfering with the things you want to do? Select Number: 5 Different Tasks and Activities: How confident are you that you can do the different tasks and activities needed to manage your health condition so as to reduce your need to see a doctor? Select Number: 7 Medication: How confident are you that you can do things other than just taking medication to reduce how much your illness affects your everyday life? Select Number: 8 Total Score:: 5 Nutrition Survey - Nutrition Survey Instructions Scoring Instructions: Scoring is as follows: Yes = 1 points. No = 0 point. Patient score that is >/=12 is considered to be at potential nutritional risk and could benefit from a referral to a registered dietitian. - Nutrition Survey Initial Have you lost >10 lbs over the past 2 months without trying?: No Are you following a special diet at home for diabetes, low fat, or low salt?: Yes Are you interested in meeting with a dietitian for help understanding your diet?: No Do you eat less than 3 meals a day?: No Do you eat fatty meats (malloy, sausage, ribs, etc), fried foods, desserts, large amounts of salad dressings, margarine, butter, or cheese most days?: No Do you have food allergies? [Enter types in comment field]: No Do you eat in restaurants more than 3 times a week?: No Do you season food with salt, seasoning salt, or garlic salt?: No Do you used canned, boxed, frozen meals, or soups, seasoning packets?: No Total Score:: 1
[2019-10-14 11:07] VITALS: BP 118/70; BMI 37.2
== END ==
PROVIDERS: PCP Family Medicine; Referring Provider Internal Medicine Cardiovascular Disease; Visit Provider Internal Medicine Cardiovascular Disease
DX: Z95.5 Presence of coronary angioplasty implant and graft (principal)

== ENCOUNTER → 2019-10-14 | Outpatient (CLI) | payer MEDICARE, SELFPAY ==
[2019-10-04 08:24] VITALS: BMI 39.1
[2019-10-14 08:42] VITALS: BMI 38.7
[2019-10-14 11:29] LABS: BNP,B-Type NATRIURETIC PEPTIDE 200.4 pg/mL (0-100)
== END | disposition home or self-care (01) ==
LOC: LAB 09:34
PROVIDERS: PCP Family Medicine; Referring Provider Physician Assistant Medical; Visit Provider Physician Assistant Medical
DX: I21.3 ST elevation (STEMI) myocardial infarction of unspecified site (principal)
CPT/HCPCS: 36415; 83880

== ENCOUNTER 2019-10-15 06:43 | Outpatient (RCR) | payer MEDICARE, SELFPAY ==
[2019-10-04 08:24] VITALS: BMI 39.1
[2019-10-14 08:42] VITALS: BMI 38.7
[2019-10-14 10:50] VITALS: BMI 37.0
[2019-10-14 11:07] VITALS: BMI 37.2
== END 2019-10-15 23:59 ==
LOC: CR 06:43
PROVIDERS: PCP Family Medicine; Referring Provider Internal Medicine Cardiovascular Disease; Visit Provider Internal Medicine Cardiovascular Disease
DX: I21.3 ST elevation (STEMI) myocardial infarction of unspecified site (principal); I25.10 Atherosclerotic heart disease of native coronary artery without angina pectoris; C95.90 Leukemia, unspecified not having achieved remission; Z95.5 Presence of coronary angioplasty implant and graft; Z86.711 Personal history of pulmonary embolism
CPT/HCPCS: 93798

== ENCOUNTER → 2019-10-29 | Outpatient (CLI) | payer MEDICARE, SELFPAY ==
[2019-10-14 10:50] VITALS: BMI 37.0
[2019-10-14 11:07] VITALS: BMI 37.2
[2019-10-29 09:54] LABS: Anion Gap 6 (5-15); BUN 20 mg/dL (7-18); BUN/Creat Ratio 15.7 RATIO (10-20); Calcium,Total 9.8 mg/dL (8.5-10.1); Chloride 106 mmol/L (98-107); Creatinine, Serum 1.27 mg/dL (0.70-1.30); EST Glomerular Filtration Rate 64 mL/min (>60); Est Glom Filt Rate - Afr Amer 77 mL/min (>60); Glucose 156 mg/dL (74-106); Magnesium 2.1 mg/dL (1.6-2.6); Potassium 4.3 mmol/L (3.5-5.1); Sodium Level 140 mmol/L (136-145)
== END | disposition home or self-care (01) ==
LOC: LAB 08:15
PROVIDERS: PCP Family Medicine; Referring Provider Physician Assistant Medical; Visit Provider Physician Assistant Medical
DX: C92.90 Myeloid leukemia, unspecified, not having achieved remission (principal); I25.10 Atherosclerotic heart disease of native coronary artery without angina pectoris; I21.3 ST elevation (STEMI) myocardial infarction of unspecified site; Z86.711 Personal history of pulmonary embolism; Z95.5 Presence of coronary angioplasty implant and graft
CPT/HCPCS: 36415; 80048; 83735

== ENCOUNTER → 2019-11-01 | Outpatient (CLI) | payer MEDICARE, SELFPAY ==
[2019-10-14 11:07] VITALS: BMI 37.2
[2019-10-29 11:32] VITALS: BMI 36.9
[2019-11-01 09:30] LABS: Hemoglobin A1c 5.7 % (4.2-6.3)
== END | disposition home or self-care (01) ==
LOC: LAB 08:20
PROVIDERS: PCP Family Medicine; Referring Provider Physician Assistant Medical; Visit Provider Physician Assistant Medical
DX: R73.09 Other abnormal glucose (principal); I25.10 Atherosclerotic heart disease of native coronary artery without angina pectoris; I21.3 ST elevation (STEMI) myocardial infarction of unspecified site; C95.90 Leukemia, unspecified not having achieved remission; Z95.5 Presence of coronary angioplasty implant and graft; Z86.711 Personal history of pulmonary embolism
CPT/HCPCS: 36415; 83036; 93798

== ENCOUNTER 2019-11-10 09:15 | Outpatient (RCR) | payer MEDICARE, SELFPAY ==
[2019-10-14 10:50] VITALS: BMI 37.0
[2019-10-14 11:07] VITALS: BMI 37.2
--- NOTE | 2019-11-12 06:35 | CR.ITP_ITS ---
Diagnosis - General Information Admitting Diagnosis: S/P PCI W/CORONARY STENT Personal Learning Style:: Audio/Visual, Written Barriers to Learning: No Barriers Stage of change r/t lifestyle modifications:: Action Gave educational material for:: Treating Heart Disease, Emotions & Heart Disease, Stress Management & Relaxation, Sleep Disorders & Heart Disease, How The Heart Works, What it means to have Heart Disease, How Coronary Artery Disease is Diagnosed, Heart Procedures, What Heart Medications Do, Risk Factors & Modifications, Living an Active Life, Nutrition - Education/Goals Individual Counseling: Initial Assessment: Abnormal Cholesterol Levels, High Blood Pressure, Overweight/Obesity Cardiac Rehabilitation Goals: 1. Maintain the individual as the primary focus of care. 2. To improve the patient's quality of life. 3. Identification of cardiac risk factors and provide cardiac risk factor management. 4. Enhance the psychosocial status of the patient. 5. Reconditioning enough to allow the patient to resume customary activities. 6. Control symptoms of cardiac disease Personal Goals: Initial Assessment: Improve management of stress and emotions, Improve energy level, Participate in home exercise program, Get back to work, or to resume activities faster, Improve knowledge of cardiac disease, Improve muscle strength and endurance, Improve diet and eating habits (eat healthier), Control risk factors (learn risk factor modification) Scale for measuring improvement of personal goals: Enter appropriate number in Comments. 2 = Unchanged. 3 = Slightly Better. 4 = Moderate Improvement. 5 = Met my Goal - Diagnosis & Disease Process Outcomes/Goals: Pt IDs own risk factors & lifestyle modifications by Session 10, Verbalizes symptoms of angina & response by session 3., Pt independently manages Plan/Interventions: Assist Pt to ID & engage in lifestyle modification to reduce CVD risk, Instruct on individual risk factors, Review symptoms of angina & emergency actions, Review secondary diagnosis & identify educational needs. 30 day Reassessments:: Progressing - Safety Referral to Physical Therapy: No Referral to [facility] Case Management: No Fall Risk Assessed:: Yes Assistive Devices:: None Exercise - 30-day Assessment - Visit Date of Eval: 11/12/19 Session #:: 12 - Physician Prescribed Exercise Modalities: Treadmill, Rower, Airdyne, NuStep Frequency: 3x/week for 12 weeks [36 sessions] Intensity: 60-80% of age predicted maximum heart rate reserve Current METSs:: 5 INCREASED FROM 3.5 Target Heart Rate:: 110-144 Current RPE:: 13-14 Maximum Excercise HR:: 136 Resting Blood Pressure: 92/70 Maximum Exercise Blood Pressure: 126/80 EKG Type: NSR TO SINUS TACHYCARDIA WITH RARE PVCs. Current Physical Activity or Exercising minutes: > 1 HOUR DAILY - Outcomes & Goals Goals:: Verbalizes understanding of THR, RPE & goal METS by session 6, Documents in home exercise log/reports 30 min aerobic 5 day/wk by DC, Demonstrates accurate pulse taking by DC - Intervention & Plan Exercise Program Goals: Instruct on personal THR & RPE, Instruct on MET level & personal MET goal, Show patient to take own pulse /validate performance until accurate, Instruct on home exercise - 30-day Reassessments 30 day Reassessments:: Progressing Nutrition - 30-Day Assessment - Program Goals Nutrition Program Goals: LDL <100 optimal. 100 - 129 Near optimal. 130 - 159 Borderline High. 160 - 189 High. Total Cholesterol <200 desirable. 200 - 239 Borderline High. >/= 240 High. HDL < 40 Low >/=60 High. Triglycerides <150 desirable. <199 optimal. VlDL 5 - 40. HgbA1C <7%. BMI <25 Patient has diagnosis of Hyperlipidemia (ICD E78)?: Yes - Visit Date of Assessment:: 11/12/19 Session #:: 12 - Cholesterol/Lipids Triglycerides (mg/dL): 396 - INTAKE 10/14/2019 Total Cholesterol (mg/dL): 193 LDL Cholesterol (mg/dL): 80 HDL Cholesterol (mg/dL): 34 Lipid Medication: ATORVASTATIN 80MG @ HS Determine presence & major risk factors that modify LDL goal: Hypertension or hypertensive medication, Low HDL cholesterol <40 mg/dL*, Age men > 45 years; women >/= 55 years Outcomes/Goals: Pt IDs own risk factors & lifestyle modifications by Session 10, Verbalizes symptoms of angina & response by session 3., Pt independently manages Intervention/Plan: Instruct on personal lipid levels & lipid goals/NCEP guidelines, Instruct on cholesterol Referral to dietitian:: Yes - MEDICAL NUTRITION THERAPY 30-day Reassessments:: Progressing - Diabetes (Other Core Measures) Diabetes Type: Not Applicable - Weight Mgt (Other Care) Not Applicable: No Height: 6 ft 1 in Weight:: 285 lb - DOWN FROM 293 BMI: 37.5 Diagnosis Overweight/Obesity BMI> 30% ICD-10 E66: Yes Diagnosis High BMI/Morbid Obesity BMI> 35% ICD-10 Z68: Yes Expected Body Weight: 261 lb Outcomes/Goals: Pt sets, maintains & shows weight loss goal & trend during rehab Intervention/Plan: Instruct on ideal BMI & set weight loss goal w/patient, Assist pt to ID & incorporate diet changes for weight loss by S9, Refer to Structured Weight Loss program as appropriate, Encourage goal of using 250- 300dcal per session for weight loss 30 day Reassessments:: Progressing - Healthy Eating Habits Will attend diet classes:: Yes Outcomes/Goals:: Consume diet rich in vegs,fruits,whole grain/high fiber,fish,lean meat, Limit sat/trans fats,cholesterol & added salts & sugars Intervention/Plan:: Assess current eating habits 30-day Reassessments:: Progressing - Education Gave educational materials for:: Healthy eating Medical- 30-Day Assessment - Visit Date of Eval: 11/12/19 Session #:: 12 - Medication Compliance Preventative Medication(s):: Aspirin, Ticagrelor/P2Y12 inhibitor, Statin/lipid, Beta quinn H/O mental health issues: depression, anxiety, or addiction?: Yes Doesn?t believe in the benefits of treatment?: No Believes medications are unnecessary or harmful?: No Has a concern about medication side effects?: No Expresses concern over the cost of medications?: No Outcomes/Goals: Verbalizes medications,desired effect & common side effects @ DC, Pt self-reports following medication regimen, Keeps card in wallet w/medications listed by DC Interventions/plans: Instruct on medication effects & side effects, Review medication list w/patient every two weeks, Instruct importance of taking meds as ordered & assist problem solving 30-day Reassessments:: Progressing - Tobacco Use Tobacco Use: Chew How long ago did you quit using tobacco products?: Less than 6 months ago Do you use smokeless tobacco?: Yes Outcomes/Goals: Smoking cessation achieved or maintained by discharge, Identify aids/strategies for achieving smoking cessation by session 6 Interventions/plan: Instruct on effects of smoking & provide smoking cessation resource, Assist pt to set quit date & provide encouragement, Assist pt to develop strategies to achieve/maintain quit date, Assist pt w/nicotine replacement & medication for cessation success 30-day Reassessments:: Progressing - Hypertension Hypertension Diagnosis:: Hypertension ICD-10 I10 Resting Blood Pressure:: 92/70 [place] [employer] Hypertension Guidelines: [place] [employer] Hypertension Guidelines. Normal BP Less than 120/80. Elevated BP 120/80. Hypertension Stage 1: BP 130-139/80-89. Hypertesnion Stage 2: BP 140 or higher/90 or higher. Hypertension Crisis: BP higher than 180/120 Peak Exercise Blood Pressure:: 126/80 Outcomes/Goals: Able to verbalize/achieve optimal blood pressure <130/80, Incorporates diet changes & exercise for blood pressure control by DC Interventions/plan: Instruct on optimal blood pressure, hypertension & medications, Instruct on effects of sodium, alcohol, stress, exercise &hypertension 30 day Reassessments:: Progressing - Tobacco Cessation Referral Smoking Cessation Referral:: No - PATIENT DECLINED Individual Education/Counseling:: No Education Schedule Given:: Yes Psychosocial - 30-Day Assess - VIsit Date of Eval: 11/12/19 Session #:: 12 Not Applicable: No History of previous Mental disease:: Yes History of Emotional Disorders: Depression Self-reported stressors: Financial, Medical/Health, Recent Illness - Target Goals Target Goals: Assess presence or absence of depression. Using a valid screening tool, maximizes coping skills. Positive support system - Psychosocial Test Tool Used:: [employer] QOL Cardiac, PHQ-9 Questionnaire phq-9 Severity: Severity. 1-4 Minimal Depression. 5-9 Mild Depression. 10-14 Moderate Depression. 15-19 Moderately Sever Depression. 20-27 Severe Depression. Rule: See PHQ-9 Score: 8 Total Score:: 8 - Referral to Behavioral Health PS - Interventions: Yes Referral to Behavioral Health if PHQ-9 score >9: - PHQ-9 and low Self Efficacy score 5, Yes Referral to Physician if PHQ-9 if score is 5- 9: - PHQ-9 score and low Self-Efficacy score 5, Yes Attend Stress Management C candace, No Referral to [facility] - Outcomes/Goals: See list Psychosocial Outcomes/Goals:: ID's personal stressors & 2 strategies to manage stress by discharge - Intervention/Plan: See List Interventions/Plan:: Assess stressors,coping strategies & signs of derpression on admission, Instruct/assist pt to develop coping & personal stress Mgt strategies, Refer to Behavioral Health if appropriate, Refer to Physician if appropriate, Instruct patient to recognize signs & symptoms of depression, Instruct patient to recog - 30-day Reassessments: 30 day Reassessments:: Progressing Patient Health Questionnaire 30-Day Re-eval Assessment 1. Little interest or pleasure in doing things: Several days 2. Feeling down, depressed, or hopeless: Several days 3. Trouble falling or staying asleep, or sleeping too much: Several days 4. Feeling tired or having little energy: More than half the days 5. Poor appetite or overeating: Several days 6. Feeling bad about yourself -- or that you are a failure or have let yourself or your family down: Several days 7. Trouble concentrating on things, such as reading the newspaper or watching television: Several days 8. Moving or speaking so slowly that other people could have noticed. Or the opposite - being so fidgety or restless that you have been moving around a lot more than usual: Not at all 9. Thoughts that you would be better off , or of hurting yourself in some way: Not at all How difficult have these problems made it for you to do your work, take care of things at home, or get along with other people?: Somewhat difficult Total Score: 8 Self-Efficacy 30-Day Re-eval Assessment We would like to know how confident you are in doing certain activities. Please select your confidence level for:: Select your confidence level for the following using the scale 1-10 where 1 is not at all confident and 10 is totally confident. Your score is the average of all 6 responses. Fatigue: How confident are you that you can keep the fatigue caused by your disease from interfering with the things you want to do? Select Number: 3 Physical Discomfort or Pain: How confident are you that you can keep the physical discomfort or pain of your disease from interfering with the things you want to do? Select Number: 5 Emotional Distress: How confident are you that you can keep the emotional distress caused by your disease from interfering with the things you want to do? Select Number: 3 Other Symptoms or Health Problems: How confident are you that you can keep other symptoms or health problems from interfering with the things you want to do? Select Number: 5 Different Tasks and Activities: How confident are you that you can do the di fferent tasks and activities needed to manage your health condition so as to reduce your need to see a doctor? Select Number: 7 Medication: How confident are you that you can do things other than just taking medication to reduce how much your illness affects your everyday life? Select Number: 8 Total Score:: 5
[2019-11-12 06:47] VITALS: BP 126/80; BP 92/70; BMI 37.5
== END 2019-11-13 23:59 ==
LOC: CR 09:15
PROVIDERS: PCP Family Medicine; Referring Provider Internal Medicine Cardiovascular Disease; Visit Provider Internal Medicine Cardiovascular Disease
DX: I21.3 ST elevation (STEMI) myocardial infarction of unspecified site (principal); I25.10 Atherosclerotic heart disease of native coronary artery without angina pectoris; C95.90 Leukemia, unspecified not having achieved remission; Z95.5 Presence of coronary angioplasty implant and graft; Z86.711 Personal history of pulmonary embolism
CPT/HCPCS: 93798

== ENCOUNTER 2019-11-29 09:15 | Outpatient (RCR) | payer MEDICARE, SELFPAY ==
[2019-10-29 11:32] VITALS: BMI 36.9
[2019-11-14 00:59] VITALS: BP 126/80; BP 92/70
--- NOTE | 2019-12-13 14:02 | PCM.CR.ITP ---
Diagnosis - General Information Admitting Diagnosis: S/P PCI W/CORONARY STENT Secondary Diagnosis: STEMI Personal Learning Style:: Audio/Visual, Written Barriers to Learning: No Barriers Stage of change r/t lifestyle modifications:: Action Gave educational material for:: Treating Heart Disease, Emotions & Heart Disease, Stress Management & Relaxation, Sleep Disorders & Heart Disease, How The Heart Works, What it means to have Heart Disease, How Coronary Artery Disease is Diagnosed, Heart Procedures, What Heart Medications Do, Risk Factors & Modifications, Living an Active Life, Nutrition - Education/Goals Individual Counseling: Initial Assessment: Nicotine/Smoking, Abnormal Cholesterol Levels, High Blood Pressure, Overweight/Obesity Cardiac Rehabilitation Goals: 1. Maintain the individual as the primary focus of care. 2. To improve the patient's quality of life. 3. Identification of cardiac risk factors and provide cardiac risk factor management. 4. Enhance the psychosocial status of the patient. 5. Reconditioning enough to allow the patient to resume customary activities. 6. Control symptoms of cardiac disease Personal Goals: Initial Assessment: Improve management of stress and emotions - 4, Improve energy level - 4, Participate in home exercise program - 4, Get back to work, or to resume activities faster - 4, Improve knowledge of cardiac disease - 4, Improve muscle strength and endurance - 4, Improve diet and eating habits (eat healthier) - 4, Control risk factors (learn risk factor modification) - 4 Scale for measuring improvement of personal goals: Enter appropriate number in Comments. 2 = Unchanged. 3 = Slightly Better. 4 = Moderate Improvement. 5 = Met my Goal - Diagnosis & Disease Process Outcomes/Goals: Pt IDs own risk factors & lifestyle modifications by Session 10, Verbalizes symptoms of angina & response by session 3., Pt independently manages Plan/Interventions: Assist Pt to ID & engage in lifestyle modification to reduce CVD risk, Instruct on individual risk factors, Review symptoms of angina & emergency actions, Review secondary diagnosis & identify educational needs. 30 day Reassessments:: Progressing 30 day Reassessments:: Progressing - PATIENT HAS BEEN ABSENT DUE TO SELF-QUARANTINE FOR COVD-19 W/EXPOSURE TO A POSITIVE PATIENT. - Safety Referral to Physical Therapy: No Referral to [facility] Case Management: No Fall Risk Assessed:: Yes Assistive Devices:: None Exercise - 60-day Assessment - Visit Date of Eval: 12/13/19 Session #:: 18 - PATIENT IS SELF-QUARATINED FOR COVID-19 EXPOSURE. - Physician Prescribed Exercise Modalities: Treadmill, Rower, Airdyne Frequency: 3x/week for 12 weeks [36 sessions] Intensity: 60-80% of age predicted maximum heart rate reserve Current METSs:: 5.0 Target Heart Rate:: 110-144 Target RPE 12-16:: 12-16 Current RPE:: 13-14 Maximum Excercise HR:: 125 Resting Blood Pressure: 90/72 Maximum Exercise Blood Pressure: 132/90 EKG Type: NSR TO SINUS TACHYCARDIA W/RARE PVCs. - Outcomes & Goals Goals:: Verbalizes understanding of THR, RPE & goal METS by session 6, Documents in home exercise log/reports 30 min aerobic 5 day/wk by DC, Demonstrates accurate pulse taking by DC - Intervention & Plan Exercise Program Goals: Instruct on personal THR & RPE, Instruct on MET level & personal MET goal, Show patient to take own pulse /validate performance until accurate - 30-day Reassessments 30 day Reassessments:: Progressing - Physical Activity Home Exercise Physical Activity - Home Exercise: Safe Exercise, Warm-up, Self-monitoring, Cool-Down, Home Exercise > 30 min Daily, Sitting Time <3 hours/daily - Outcomes & Goals Outcomes/Goals: Demonstrates correct Warm-up/exercise Cool-Down (S3) if = 2.5 METs, Verbalizes symptoms of exercise intolerance by Session 3 (S3), Demonstrate safe equipment use (S3) & follows exercise prescrition (6) - Intervention & Plan Plan/Intervention: Instruct warm-up & cool-down if exercising at > 2 METs, Instruct on symptoms of exercise intolerance & actions to take, Instruct & monitor on saf, Assess intial functional capacity & safety risk - 30-day Reassessments 30 day Reassessments:: Progressing Nutrition - 30-Day Assessment - Program Goals Nutrition Program Goals: LDL <100 optimal. 100 - 129 Near optimal. 130 - 159 Borderline High. 160 - 189 High. Total Cholesterol <200 desirable. 200 - 239 Borderline High. >/= 240 High. HDL < 40 Low >/=60 High. Triglycerides <150 desirable. <199 optimal. VlDL 5 - 40. HgbA1C <7%. BMI <25 Patient has diagnosis of Hyperlipidemia (ICD E78)?: Yes - Visit Date of Assessment:: 12/13/19 Session #:: 18 - Cholesterol/Lipids Triglycerides (mg/dL): 396 - 10/04/19 Total Cholesterol (mg/dL): 193 LDL Cholesterol (mg/dL): 80 HDL Cholesterol (mg/dL): 34 Determine presence & major risk factors that modify LDL goal: Cigarette smoking, Hypertension or hypertensive medication, Low HDL cholesterol <40 mg/dL*, Family history of premature CHD in Male < 55 years: female <65 yearsFa, Age men > 45 years; women >/= 55 years Outcomes/Goals: Pt IDs own risk factors & lifestyle modifications by Session 10, Verbalizes symptoms of angina & response by session 3., Pt independently manages Intervention/Plan: Instruct on personal lipid levels & lipid goals/NCEP guidelines, Instruct on cholesterol Referral to dietitian:: No - INSURANCE DOES NOT COVER SERVICE. 30-day Reassessments:: Progressing - Diabetes (Other Core Measures) Diabetes Type: Not Applicable - Weight Mgt (Other Care) Not Applicable: No Height: 6 ft 1 in Weight:: 285 lb BMI: 37.5 Diagnosis Overweight/Obesity BMI> 30% ICD-10 E66: Yes Diagnosis High BMI/Morbid Obesity BMI> 35% ICD-10 Z68: Yes Outcomes/Goals: Pt sets, maintains & shows weight loss goal & trend during rehab Intervention/Plan: Instruct on ideal BMI & set weight loss goal w/patient, Assist pt to ID & incorporate diet changes for weight loss by S9, Encourage goal of using 250-300dcal per session for weight loss 30 day Reassessments:: Progressing - Healthy Eating Habits Will attend diet classes:: Yes Outcomes/Goals:: Consume diet rich in vegs,fruits,whole grain/high fiber,fish,lean meat, Limit sat/trans fats,cholesterol & added salts & sugars Intervention/Plan:: Assess current eating habits 30-day Reassessments:: Progressing - Education Gave educational materials for:: Healthy eating Medical- 30-Day Assessment - Visit Date of Eval: 12/13/19 Session #:: 18 - Medication Compliance Preventative Medication(s):: Aspirin, Ticagrelor/P2Y12 inhibitor, Statin/lipid, Beta quinn H/O mental health issues: depression, anxiety, or addiction?: Yes Doesn?t believe in the benefits of treatment?: No Believes medications are unnecessary or harmful?: No Has a concern about medication side effects?: No Expresses concern over the cost of medications?: No Outcomes/Goals: Verbalizes medications,desired effect & common side effects @ DC, Pt self-reports following medication regimen, Keeps card in wallet w/medications listed by DC Interventions/plans: Instruct on medication effects & side effects, Review medication list w/patient every two weeks, Instruct importance of taking meds as ordered & assist problem solving 30-day Reassessments:: Progressing - Tobacco Use Tobacco Use: Non-smoker How long ago did you quit using tobacco products?: Less than 6 months ago Do you use smokeless tobacco?: No Outcomes/Goals: Smoking cessation achieved or maintained by discharge, Identify aids/strategies for achieving smoking cessation by session 6 Interventions/plan: Instruct on effects of smoking & provide smoking cessation resource, Assist pt to develop strategies to achieve/maintain quit date 30-day Reassessments:: Progressing - Hypertension Hypertension Diagnosis:: Hypertension ICD-10 I10 Resting Blood Pressure:: 90/72 [employer] Hypertension Guidelines: [place] [employer] Hypertension Guidelines. Normal BP Less than 120/80. Elevated BP 120/80. Hypertension Stage 1: BP 130-139/80-89. Hypertesnion Stage 2: BP 140 or higher/90 or higher. Hypertension Crisis: BP higher than 180/120 Peak Exercise Blood Pressure:: 132/90 Outcomes/Goals: Able to verbalize/achieve optimal blood pressure <130/80, Incorporates diet changes & exercise for blood pressure control by DC Interventions/plan: Instruct on optimal blood pressure, hypertension & medications, Instruct on effects of sodium, alcohol, stress, exercise &hypertension 30 day Reassessments:: Progressing - Tobacco Cessation Referral Smoking Cessation Referral:: No Individual Education/Counseling:: No Education Schedule Given:: Yes Psychosocial - 30-Day Assess - Target Goals Target Goals: Assess presence or absence of depression. Using a valid screening tool, maximizes coping skills. Positive support system - Psychosocial Test phq-9 Severity: Severity. 1-4 Minimal Depression. 5-9 Mild Depression. 10-14 Moderate Depression. 15-19 Moderately Sever Depression. 20-27 Severe Depression. Rule: - 30-day Reassessments: 30 day Reassessments:: Progressing Psychosocial - 60-Day Assess - VIsit Date of Eval: 12/13/19 Session #:: 18 Not Applicable: Yes History of previous Mental disease:: No History of Emotional Disorders: Depression Self-reported stressors: Financial, Medical/Health - Target Goals Target Goals: Assess presence or absence of depression. Using a valid screening tool, maximizes coping skills. Positive support system - Psychosocial Test Tool Used:: Panchito Augustine QOL Cardiac, PHQ-9 Questionnaire phq-9 Severity: Severity. 1-4 Minimal Depression. 5-9 Mild Depression. 10-14 Moderate Depression. 15-19 Moderately Sever Depression. 20-27 Severe Depression. Rule: - Referral to Behavioral Health PS - Interventions: Yes Referral to Physician if PHQ-9 if score is 5-9:, Yes Attend Stress Management Classes, No Referral to Behavioral Health if PHQ-9 score >9:, No Referral to [facility] - Outcomes/Goals: See list Psychosocial Outcomes/Goals:: ID's personal stressors & 2 strategies to manage stress by discharge - Intervention/Plan: See List Interventions/Plan:: Assess stressors,coping strategies & signs of derpression on admission, Instruct/assist pt to develop coping & personal stress Mgt strategies, Refer to Behavioral Health if appropriate, Refer to Physician if appropriate, Instruct patient to recognize signs & symptoms of depression, Instruct patient to recog - 30-day Reassessments: 30 day Reassessments:: Progressing Patient Health Questionnaire 60-Day Re-eval Assessment 1. Little interest or pleasure in doing things: Several days 2. Feeling down, depressed, or hopeless: Several days 3. Trouble falling or staying asleep, or sleeping too much: Several days 4. Feeling tired or having little energy: More than half the days 5. Poor appetite or overeating: Several days 6. Feeling bad about yourself -- or that you are a failure or have let yourself or your family down: Several days 7. Trouble concentrating on things, such as reading the newspaper or watching television: Several days 8. Moving or speaking so slowly that other people could have noticed. Or the opposite - being so fidgety or restless that you have been moving around a lot more than usual: Not at all 9. Thoughts that you would be better off , or of hurting yourself in some way: Not at all How difficult have these problems made it for you to do your work, take care of things at home, or get along with other people?: Somewhat difficult Total Score: 8 Self-Efficacy 60-Day Re-eval Assessment We would like to know how confident you are in doing certain activities. Please select your confidence level for:: Select your confidence level for the following using the scale 1-10 where 1 is not at all confident and 10 is totally confident. Your score is the average of all 6 responses. Fatigue: How confident are you that you can keep the fatigue caused by your disease from interfering with the things you want to do? Select Number: 5 Physical Discomfort or Pain: How confident are you that you can keep the physical discomfort or pain of your disease from interfering with the things you want to do? Select Number: 6 Emotional Distress: How confident are you that you can keep the emotional distress caused by your disease from interfering with the things you want to do? Select Number: 5 Other Symptoms or Health Problems: How confident are you that you can keep other symptoms or health problems from interfering with the things you want to do? Select Number: 6 Different Tasks and Activities: How confident are you that you can do the different tasks and activities needed to manage your health condition so as to reduce your need to see a doctor? Select Number: 8 Medication: How confident are you that you can do things other than just taking medication to reduce how much your illness affects your everyday life? Select Number: 9 Total Score:: 6
[2019-12-13 14:13] VITALS: BP 132/90; BP 90/72; BMI 37.5
== END 2019-12-14 23:59 ==
LOC: CR 09:15
PROVIDERS: PCP Family Medicine; Referring Provider Internal Medicine Cardiovascular Disease; Visit Provider Internal Medicine Cardiovascular Disease
DX: I21.3 ST elevation (STEMI) myocardial infarction of unspecified site (principal); I25.10 Atherosclerotic heart disease of native coronary artery without angina pectoris; C95.90 Leukemia, unspecified not having achieved remission; Z95.5 Presence of coronary angioplasty implant and graft; Z86.711 Personal history of pulmonary embolism
CPT/HCPCS: 93798

== ENCOUNTER 2020-01-21 09:15 | Outpatient (RCR) | payer MEDICARE, SELFPAY ==
[2019-10-29 11:32] VITALS: BMI 36.9
[2019-12-15 00:44] VITALS: BP 132/90; BP 90/72
--- NOTE | 2019-12-17 06:48 | PCM.CR.ITP ---
Exercise - Initial Assessment - Visit Date of Eval: 12/17/19 - With obvious neccessary interupption in the delivery of CR, the patient's program is on hold due to the coronovirus. The CR program has been closed for patient safety reasons.
--- NOTE | 2020-01-14 10:11 | CR.ITP_ITS ---
Diagnosis - General Information Admitting Diagnosis: PCI with stent Personal Learning Style:: Audio/Visual, Demonstration, Group, Individual Preference, Written Stage of change r/t lifestyle modifications:: Action Gave educational material for:: Treating Heart Disease, Emotions & Heart Disease, Stress Management & Relaxation, Sleep Disorders & Heart Disease, How The Heart Works, What it means to have Heart Disease, How Coronary Artery Disease is Diagnosed, Heart Procedures, What Heart Medications Do, Risk Factors & Modifications, Living an Active Life, Nutrition - Education/Goals Cardiac Rehabilitation Goals: 1. Maintain the individual as the primary focus of care. 2. To improve the patient's quality of life. 3. Identification of cardiac risk factors and provide cardiac risk factor management. 4. Enhance the psychosocial status of the patient. 5. Reconditioning enough to allow the patient to resume customary activities. 6. Control symptoms of cardiac disease Scale for measuring improvement of personal goals: Enter appropriate number in Comments. 2 = Unchanged. 3 = Slightly Better. 4 = Moderate Improvement. 5 = Met my Goal - Diagnosis & Disease Process Outcomes/Goals: Pt IDs own risk factors & lifestyle modifications by Session 10, Verbalizes symptoms of angina & response by session 3., Pt independently manages, Other Additional Outcomes/Goals: Plan/Interventions: Assist Pt to ID & engage in lifestyle modification to reduce CVD risk, Instruct on individual risk factors, Review symptoms of angina & emergency actions, Review secondary diagnosis & identify educational needs., Other see comment 30 day Reassessments:: Progressing 30 day Reassessments:: Progressing 30 day Reassessments:: Progressing 30 day Reassessments:: Progressing - Safety Referral to Physical Therapy: No Referral to [facility] Case Management: No Fall Risk Assessed:: Yes Assistive Devices:: None Exercise - 90-day Assessment - Visit Date of Eval: 01/14/20 Session #:: 19 Comments:: Pt was on hold for COVID 19 precaution. Pt is now resuming rehab. - Physician Prescribed Exercise Modalities: Treadmill, Airdyne, NuStep Frequency: 3x/week for 12 weeks [36 sessions] Intensity: 60-80% of age predicted maximum heart rate reserve Current METSs:: 5 Target Heart Rate:: 110-144 Current RPE:: 13-14 Maximum Excercise HR:: 125 Resting Blood Pressure: 90/72 Maximum Exercise Blood Pressure: 132/90 EKG Type: SR - Outcomes & Goals Goals:: Verbalizes understanding of THR, RPE & goal METS by session 6, Documents in home exercise log/reports 30 min aerobic 5 day/wk by DC, Demonstrates accurate pulse taking by DC, Other additional outcome/goals: see below - Intervention & Plan Exercise Program Goals: Instruct on personal THR & RPE, Instruct on MET level & personal MET goal, Show patient to take own pulse /validate performance until accurate, Instruct on home exercise, Other additional plan/int - Physical Activity Home Exercise Physical Activity - Home Exercise: Safe Exercise, Warm-up, Self-monitoring, Cool-Down, Home Exercise > 30 min Daily, Sitting Time <3 hours/daily - Outcomes & Goals Outcomes/Goals: Demonstrates correct Warm-up/exercise Cool-Down (S3) if = 2.5 ME Ts, Verbalizes symptoms of exercise intolerance by Session 3 (S3), Demonstrate safe equipment use (S3) & follows exercise prescrition (6), Other: See below - Intervention & Plan Plan/Intervention: Instruct warm-up & cool-down if exercising at > 2 METs, Instruct on symptoms of exercise intolerance & actions to take, Instruct & monitor on saf, Assess intial functional capacity & safety risk, Other See below - 30-day Reassessments 30 day Reassessments:: Progressing Nutrition - 90-Day Assessment - Program Goals Nutrition Program Goals: LDL <100 optimal. 100 - 129 Near optimal. 130 - 159 Borderline High. 160 - 189 High. Total Cholesterol <200 desirable. 200 - 239 Borderline High. >/= 240 High. HDL < 40 Low >/=60 High. Triglycerides <150 desirable. <199 optimal. VlDL 5 - 40. HgbA1C <7%. BMI <25 Patient has diagnosis of Hyperlipidemia (ICD E78)?: Yes - Visit Date of Assessment:: 01/14/20 Session #:: 19 - Cholesterol/Lipids Determine presence & major risk factors that modify LDL goal: Hypertension or hypertensive medication, Low HDL cholesterol <40 mg/dL*, Family history of premature CHD in Male < 55 years: female <65 yearsFa, Age men > 45 years; women >/= 55 years Outcomes/Goals: Pt IDs own risk factors & lifestyle modifications by Session 10, Verbalizes symptoms of angina & response by session 3., Pt independently manages, Other Additional Outcomes/Goals: Intervention/Plan: Advocate for lipid panel cholesterol medication if applicable, Instruct on personal lipid levels & lipid goals/NCEP guidelines, Instruct on cholesterol, Other additional plan/int Referral to dietitian:: No 30-day Reassessments:: Progressing - Weight Mgt (Other Care) Height: 6 ft 1 in Weight:: 129.274 kg BMI: 37.5 Diagnosis Overweight/Obesity BMI> 30% ICD-10 E66: Yes Diagnosis High BMI/Morbid Obesity BMI> 35% ICD-10 Z68: Yes 30 day Reassessments:: Progressing - Healthy Eating Habits Will attend diet classes:: Yes Outcomes/Goals:: Consume diet rich in vegs,fruits,whole grain/high fiber,fish ,lean meat, Limit sat/trans fats,cholesterol & added salts & sugars, Other additional outcome/goals: Intervention/Plan:: Assess current eating habits, Other Additional plan/in terventions 30-day Reassessments:: Progressing - Education Gave educational materials for:: Signs & symptoms of hypoglycemia, Signs & sy mptoms of hyperglycemia, Relate diabetes to coronary artery disease, Healthy eating Medical- 90-Day Assessment - Visit Date of Eval: 01/14/20 Session #:: 18 - Medication Compliance Preventative Medication(s):: Aspirin, Ticagrelor/P2Y12 inhibitor, Statin/lipid, Beta quinn H/O mental health issues: depression, anxiety, or addiction?: Yes Doesn?t believe in the benefits of treatment?: No Believes medications are unnecessary or harmful?: No Has a concern about medication side effects?: No Expresses concern over the cost of medications?: No Outcomes/Goals: Verbalizes medications,desired effect & common side effects @ DC, Pt self-reports following medication regimen, Keeps card in wallet w/medications listed by DC, Other additional outcome/goals: Interventions/plans: Instruct on medication effects & side effects, Review medication list w/patient every two weeks, Instruct importance of taking meds as ordered & assist problem solving, Other additional 30-day Reassessments:: Progressing - Tobacco Use Tobacco Use: Non-smoker - Hypertension Hypertension Diagnosis:: Hypertension ICD-10 I10 Resting Blood Pressure:: 90/72 [place] [employer] Hypertension Guidelines: [place] [employer] Hypertension Guidelines. Normal BP Less than 120/80. Elevated BP 120/80. Hypertension Stage 1: BP 130-139/80-89. Hypertesnion Stage 2: BP 140 or higher/90 or higher. Hypertension Crisis: BP higher than 180/120 Peak Exercise Blood Pressure:: 132/90 Outcomes/Goals: Able to verbalize/achieve optimal blood pressure <130/80, Incorporates diet changes & exercise for blood pressure control by DC, Other additional outcomes/goals Interventions/plan: Instruct on optimal blood pressure, hypertension & medications, Instruct on effects of sodium, alcohol, stress, exercise &hypertension, Other additional plan/interventions 30 day Reassessments:: Progressing - Tobacco Cessation Referral Smoking Cessation Referral:: No Individual Education/Counseling:: No Education Schedule Given:: Yes Psychosocial - 90-Day Assess - VIsit Date of Eval: 01/14/20 Session #:: 18 History of Emotional Disorders: Depression - Target Goals Target Goals: Assess presence or absence of depression. Using a valid screening tool, maximizes coping skills. Positive support system - Psychosocial Test Tool Used:: Panchito Augustine QOL Cardiac, PHQ-9 Questionnaire phq-9 Severity: Severity. 1-4 Minimal Depression. 5-9 Mild Depression. 10-14 Moderate Depression. 15-19 Moderately Sever Depression. 20-27 Severe Depression. Rule: - Referral to Behavioral Health PS - Interventions: Yes Referral to Behavioral Health if PHQ-9 score >9:, Yes Attend Stress Management Classes, No Referral to Physician if PHQ-9 if score is 5-9: - Outcomes/Goals: See list Psychosocial Outcomes/Goals:: ID's personal stressors & 2 strategies to manage stress by discharge, Other Additional outcome/goals: - Intervention/Plan: See List Interventions/Plan:: Assess stressors,coping strategies & signs of derpression on admission, Instruct/assist pt to develop coping & personal stress Mgt strategies, Refer to Behavioral Health if appropriate, Refer to Physician if appropriate, Instruct patient to recognize signs & symptoms of depression, Instruct patient to recog, Other additional plan/intervention - 30-day Reassessments: 30 day Reassessments:: Progressing Patient Health Questionnaire 90-Day Re-eval Assessment 1. Little interest or pleasure in doing things: Several days 2. Feeling down, depressed, or hopeless: Several days 3. Trouble falling or staying asleep, or sleeping too much: Several days 4. Feeling tired or having little energy: More than half the days 5. Poor appetite or overeating: Several days 6. Feeling bad about yourself -- or that you are a failure or have let yourself or your family down: Several days 7. Trouble concentrating on things, such as reading the newspaper or watching television: Not at all 8. Moving or speaking so slowly that other people could have noticed. Or the opposite - being so fidgety or restless that you have been moving around a lot more than usual: Not at all 9. Thoughts that you would be better off , or of hurting yourself in some way: Not at all How difficult have these problems made it for you to do your work, take care of things at home, or get along with other people?: Somewhat difficult Total Score: 7 Self-Efficacy 90-Day Re-eval Assessment We would like to know how confident you are in doing certain activities. Please select your confidence level for:: Select your confidence level for the following using the scale 1-10 where 1 is not at all confident and 10 is totally confident. Your score is the average of all 6 responses. Fatigue: How confident are you that you can keep the fatigue caused by your disease from interfering with the things you want to do? Select Number: 5 Physical Discomfort or Pain: How confident are you that you can keep the physical discomfort or pain of your disease from interfering with the things you want to do? Select Number: 6 Emotional Distress: How confident are you that you can keep the emotional distress caused by your disease from interfering with the things you want to do? Select Number: 5 Other Symptoms or Health Problems: How confident are you that you can keep other symptoms or health problems from interfering with the things you want to do? Select Number: 6 Different Tasks and Activities: How confident are you that you can do the different tasks and activities needed to manage your health condition so as to reduce your need to see a doctor? Select Number: 8 Medication: How confident are you that you can do things other than just taking medication to reduce how much your illness affects your everyday life? Select Number: 9 Total Score:: 6
[2020-01-14 10:20] VITALS: BP 132/90; BP 90/72; BMI 37.5
== END 2020-02-13 23:59 ==
LOC: CR 09:15
PROVIDERS: PCP Family Medicine; Referring Provider Internal Medicine Cardiovascular Disease; Visit Provider Internal Medicine Cardiovascular Disease
DX: I25.2 Old myocardial infarction (principal); I25.10 Atherosclerotic heart disease of native coronary artery without angina pectoris; C95.90 Leukemia, unspecified not having achieved remission; Z95.5 Presence of coronary angioplasty implant and graft; Z86.711 Personal history of pulmonary embolism
CPT/HCPCS: 93798

== ENCOUNTER → 2020-01-24 | Outpatient (CLI) | payer MEDICARE, SELFPAY ==
[2019-10-29 11:32] VITALS: BMI 36.9
[2020-01-14 10:20] VITALS: BMI 37.5
--- NOTE | 2020-01-24 09:56 | ECHOCS_ITS ---
Reason For Study: CAD Procedure This was a 2D Doppler, Color Flow transthoracic echocardiogram. The study was technically difficult. Exam performed in department. Left Ventricle Normal LV size. Layered thrombus seen in the LV apex. The estimated ejection fraction is 35 %. Mid- anteroseptal : Severely Hypokinetic. [place] : Akinetic. Lateral [place] : Severely Hypokinetic. Septal [place] : Akinetic. Right Ventricle Normal RV size. Normal systolic function. Atria The left atrium is mildly enlarged. Normal right atrium. Mitral Valve Normal mitral valve. Tricuspid Valve Normal tricuspid valve. Aortic Valve The aortic valve is not well visualized. Pulmonic Valve The pulmonic valve is not well visualized. Great Vessels Normal aortic root. Pericardium/Pleural No pericardial effusion. Medication 22 gauge I.V. with prn adaptor inserted into right arm. Diluted definity 5ml given slow IV push to enhance endocardial definition. MMode/2D Measurements & Calculations LVIDd: 5.6 cm IVSd: 0.88 cm Ao root diam: 3.6 cm LVIDs: 4.2 cm LVPWd: 1.1 cm RVDd: 3.8 cm FS: 25.7 % LAV(MOD-bp): 70.3 ml LA A4 area: 23.9 cm2 LA dimension(2D): 5.1 cm LAV(MOD-bp) Indexed: 28.1 ml/m2 LAV(MOD-sp2): 62.5 ml LAV(MOD-sp4): 70.7 ml RA A4 area: 14.0 cm2 Time Measurements MV dec time: 0.14 sec Doppler Measurements & Calculations MV E max rosendo: 77.5 cm/sec Lat Peak E' Rosendo: 9.6 cm/sec Med Peak E' Rosendo: 6.0 cm/sec MV A max rosendo: 55.2 cm/sec E/E' lat: 8.1 E/E' med: 12.9 MV E/A: 1.4 Ao V2 max: 120.9 cm/sec LV V1 max: 76.9 cm/sec Ao max P.9 mmHg LV V1 max P.4 mmHg Interpretation Summary Normal LV size. The estimated ejection fraction is 35 %. Layered thrombus seen in the LV apex. [place] : Akinetic. Contrast injection was performed. Ordering Physician: Marisol Hernandez/Amado Platt Referring Physician: Juan Davila Performed By: Alyssa Morgan, NATHALIE, RVT
== END | disposition home or self-care (01) ==
PROVIDERS: PCP Family Medicine; Visit Provider Physician Assistant Medical
DX: I25.10 Atherosclerotic heart disease of native coronary artery without angina pectoris (principal); R00.2 Palpitations; I25.5 Ischemic cardiomyopathy; C92.90 Myeloid leukemia, unspecified, not having achieved remission; Z86.711 Personal history of pulmonary embolism; Z95.5 Presence of coronary angioplasty implant and graft
CPT/HCPCS: 93225; 93226; 93306; Q9957; A4216; C8929

== ENCOUNTER → 2020-02-24 10:15 | Outpatient (CLI) | payer MEDICARE, SELFPAY ==
[2019-10-29 11:32] VITALS: BMI 36.9
[2020-01-14 10:20] VITALS: BMI 37.5
[2020-02-24 11:15] LABS: ALB/GLOB Ratio 0.9 RATIO (0.9-2.4); AST(SGOT) 27 U/L (15-37); Alanine Aminotransfer ALT/SGPT 47 U/L (16-61); Albumin, Serum 3.7 g/dL (3.2-5.0); Alkaline Phosphatase 99 U/L (45-117); Anion Gap 5 (5-15); BUN 18 mg/dL (7-18); BUN/Creat Ratio 15.3 RATIO (10-20); Calcium,Total 9.3 mg/dL (8.5-10.1); Chloride 109 mmol/L (98-107); Cholesterol 157 mg/dL (200); Creatinine, Serum 1.18 mg/dL (0.70-1.30); EST Glomerular Filtration Rate 69 mL/min (>60); Est Glom Filt Rate - Afr Amer 84 mL/min (>60); Globulin 4.1 g/dL (2.2-4.2); Glucose 113 mg/dL (74-106); High Density Lipoprotein 33 mg/dL; Protein, Total 7.8 g/dL (6.4-8.2); Sodium Level 139 mmol/L (136-145); Triglycerides 238 mg/dL; Very Low Density Lipoprotein 48 mg/dL (5-40)
[2020-02-24 11:16] LABS: Hemoglobin A1c 5.7 % (3.8-5.6)
== END ==
PROVIDERS: PCP Family Medicine; Referring Provider Family Medicine; Visit Provider Family Medicine
DX: E78.00 Pure hypercholesterolemia, unspecified (principal); R73.9 Hyperglycemia, unspecified
CPT/HCPCS: 36415; 80053; 80061; 83036

== ENCOUNTER → 2020-03-24 | Outpatient (CLI) | payer MEDICARE, SELFPAY ==
[2020-01-14 10:20] VITALS: BMI 37.5
[2020-02-24 10:56] VITALS: BMI 38.5
[2020-03-24 11:11] LABS: Anion Gap 7 (5-15); BUN 26 mg/dL (7-18); Chloride 105 mmol/L (98-107); Creatinine, Serum 1.24 mg/dL (0.70-1.30); EST Glomerular Filtration Rate 65 mL/min (>60); Est Glom Filt Rate - Afr Amer 79 mL/min (>60); Glucose 123 mg/dL (74-106); Sodium Level 137 mmol/L (136-145)
== END | disposition home or self-care (01) ==
PROVIDERS: PCP Family Medicine; Referring Provider Physician Assistant Medical; Visit Provider Physician Assistant Medical
DX: I25.10 Atherosclerotic heart disease of native coronary artery without angina pectoris (principal); I25.5 Ischemic cardiomyopathy
CPT/HCPCS: 36415; 80048

== ENCOUNTER → 2020-05-02 | Outpatient (CLI) | payer MEDICARE, SELFPAY ==
[2020-01-14 10:20] VITALS: BMI 37.5
[2020-02-24 10:56] VITALS: BMI 38.5
== END | disposition home or self-care (01) ==
LOC: CVS 09:56
PROVIDERS: PCP Family Medicine; Referring Provider Internal Medicine Cardiovascular Disease; Visit Provider Internal Medicine Cardiovascular Disease
DX: I23.6 Thrombosis of atrium, auricular appendage, and ventricle as current complications following acute myocardial infarction (principal); I21.3 ST elevation (STEMI) myocardial infarction of unspecified site; I25.10 Atherosclerotic heart disease of native coronary artery without angina pectoris; I25.5 Ischemic cardiomyopathy; C92.90 Myeloid leukemia, unspecified, not having achieved remission; Z86.711 Personal history of pulmonary embolism; Z95.5 Presence of coronary angioplasty implant and graft
CPT/HCPCS: 93308; Q9957; A4216; C8924

== ENCOUNTER → 2020-05-29 | Outpatient (CLI) | payer MEDICARE, SELFPAY ==
[2020-01-14 10:20] VITALS: BMI 37.5
[2020-05-09 08:49] VITALS: BMI 37.5
[2020-05-29 10:21] LABS: Anion Gap 2 (5-15); BUN 23 mg/dL (7-18); BUN/Creat Ratio 20.4 RATIO (10-20); Calcium,Total 9.5 mg/dL (8.5-10.1); Chloride 108 mmol/L (98-107); Creatinine, Serum 1.13 mg/dL (0.70-1.30); EST Glomerular Filtration Rate 73 mL/min (>60); Est Glom Filt Rate - Afr Amer 88 mL/min (>60); Glucose 123 mg/dL (74-106); Potassium 3.7 mmol/L (3.5-5.1); Sodium Level 140 mmol/L (136-145)
== END | disposition home or self-care (01) ==
LOC: LAB 08:42
PROVIDERS: Nurse Practitioner Family; PCP Family Medicine; Referring Provider Physician Assistant Medical; Visit Provider Physician Assistant Medical
DX: I25.10 Atherosclerotic heart disease of native coronary artery without angina pectoris (principal); I25.5 Ischemic cardiomyopathy; Z95.5 Presence of coronary angioplasty implant and graft
CPT/HCPCS: 36415; 80048

== ENCOUNTER → 2020-06-21 | Outpatient (CLI) | payer MEDICARE, SELFPAY ==
[2020-01-14 10:20] VITALS: BMI 37.5
[2020-05-09 08:49] VITALS: BMI 37.5
== END | disposition home or self-care (01) ==
LOC: PSN 11:36
PROVIDERS: PCP Family Medicine; Referring Provider Nurse Practitioner Family; Visit Provider Nurse Practitioner Family
DX: I48.0 Paroxysmal atrial fibrillation (principal); I25.5 Ischemic cardiomyopathy
CPT/HCPCS: 93225; 93226

== ENCOUNTER → 2020-08-16 09:37 | Outpatient (CLI) | payer MEDICARE, SELFPAY ==
[2020-01-14 10:20] VITALS: BMI 37.5
[2020-07-20 10:48] VITALS: BMI 38.6
--- NOTE | 2020-08-16 09:38 | ECHOCS_ITS ---
Reason For Study: DYSPNEA/SOB Procedure This was a 2D Doppler, Color Flow transthoracic echocardiogram. The study was technically difficult. Due to body habitus. Contrast injection was performed. Exam performed in department. Left Ventricle Normal LV size. The estimated ejection fraction is 35 %. Stage 1 diastolic dysfunction. [place] : Akinetic. Mid-Lateral : Hypokinetic. Lateral [place] : Akinetic. Septal [place] : Akinetic. Lateral-Basal: Normal. Mid-inferoseptal : Mildly hypokinetic. Basal anteroseptal: Normal. Posterior-Basal: Normal. Infero-Basal: Normal. Right Ventricle Normal RV size. Normal systolic function. Atria Normal left atrium. Normal right atrium. Mitral Valve Normal mitral valve. Tricuspid Valve Normal tricuspid valve. Mild (1+) tricuspid valve insufficiency. Pulmonary artery systolic pressure is 36 mmHg. Pericardium/Pleural No pericardial effusion. Medication 22 gauge I.V. with prn adaptor inserted into right arm. Diluted definity 4.0ml given slow IV push to enhance endocardial definition. MMode/2D Measurements & Calculations LVIDd: 4.8 cm IVSd: 1.1 cm Ao root diam: 3.4 cm LVIDs: 3.9 cm LVPWd: 1.1 cm RVDd: 3.1 cm FS: 18.4 % LAV(MOD-bp): 61.0 ml LA dimension(2D): 4.1 cm LA A4 area: 21.2 cm2 LAV(MOD-bp) Indexed: 24.2 ml/m2 LAV(MOD-sp2): 54.4 ml LAV(MOD-sp4): 60.2 ml RA A4 area: 15.1 cm2 Time Measurements MV dec time: 0.20 sec Doppler Measurements & Calculations MV E max rosendo: 45.7 cm/sec Lat Peak E' Rosendo: 6.0 cm/sec Med Peak E' Rosendo: 6.3 cm/sec MV A max rosendo: 60.6 cm/sec E/E' lat: 7.6 E/E' med: 7.2 MV E/A: 0.75 Ao V2 max: 103.6 cm/sec LV V1 max: 72.9 cm/sec PA V2 max: 98.8 cm/sec Ao max P.3 mmHg LV V1 max P.1 mmHg TR max rosendo: 285.6 cm/sec TR max P.6 mmHg Interpretation Summary Normal LV size. The estimated ejection fraction is 35 %. Normal RV size. Stage 1 diastolic dysfunction. No ventricular thrombus noted Compared to prior study, there is no significant change. Contrast injection was performed. Ordering Physician: Amado Platt Referring Physician: Juan Davila Performed By: Ailyn Marvin RDCS, RVT
== END ==
PROVIDERS: PCP Family Medicine; Referring Provider Internal Medicine Cardiovascular Disease; Visit Provider Internal Medicine Cardiovascular Disease
DX: R06.00 Dyspnea, unspecified (principal); R06.02 Shortness of breath; I25.10 Atherosclerotic heart disease of native coronary artery without angina pectoris; I23.1 Atrial septal defect as current complication following acute myocardial infarction; I25.2 Old myocardial infarction; C92.90 Myeloid leukemia, unspecified, not having achieved remission; I48.0 Paroxysmal atrial fibrillation; I25.5 Ischemic cardiomyopathy; Z86.711 Personal history of pulmonary embolism; Z95.5 Presence of coronary angioplasty implant and graft; Z94.84 Stem cells transplant status
CPT/HCPCS: 93306; Q9957; A4216; C8929

== ENCOUNTER → 2021-06-06 09:36 | Outpatient (CLI) | payer MEDICARE, SELFPAY ==
[2020-01-14 10:20] VITALS: BMI 37.5
--- NOTE | 2021-06-06 09:39 | ART_ITS ---
Reason For Study: DECRESED PEDAL PULSES Procedure A bilateral lower extremity continuous wave Doppler with analog waveform analysis,segmental pressures,and ankle brachial indexes without exercise. Left Segmental Pressures Left brachial= 103mmHg. Left posterior tibial artery = 134mmHg. Left dorsalis pedis artery = 154mmHg. Left digit = 106 mmHg. The left dorsalis pedis waveforms are triphasic. The left posterior tibial artery waveforms are triphasic. Right Segmental Pressures Right brachial= 102mmHg. Right posterior tibial artery = 144mmHg. Right dorsalis pedis artery = 156mmHg. Right digit = 94 mmHg. The right dorsalis pedis waveforms are triphasic. The right posterior tibial artery waveforms are triphasic. Indices The right resting ankle brachial index is 1.51. The right ankle brachial index by the dorsalis pedis is 1.51. The right ankle brachial index by the posterior tibial artery is 1.40. The right digital- brachial index is 0.91. The left resting ankle brachial index is 1.50. The left ankle brachial index by the dorsalis pedis is 1.50. The left ankle brachial index by the posterior tibial artery is 1.30. The left digital-brachial index is 1.03. VL/Lower Ext Art Exam w/o Exercis Interpretation Summary Normal bilateral extremity ankle-brachial indices at rest Normal bilateral lower extremity posterior tibial and dorsalis pedis triphasic Doppler waveforms Normal bilateral digital brachial indices Ordering Physician: Marisol Hernandez Referring Physician: Marisol Hernandez Performed By: Ailyn Marvin RVT, RD
== END ==
PROVIDERS: PCP Family Medicine; Referring Provider Physician Assistant Medical; Visit Provider Physician Assistant Medical
DX: I73.9 Peripheral vascular disease, unspecified (principal)
CPT/HCPCS: 93923

== ENCOUNTER → 2021-07-30 07:00 | Outpatient (CLI) | payer MEDICARE, SELFPAY ==
[2020-01-14 10:20] VITALS: BMI 37.5
--- NOTE | 2021-07-30 07:02 | ECHOCS_ITS ---
Reason For Study: CAD/ASHD Procedure This was a 2D Doppler, Color Flow transthoracic echocardiogram. The study was technically difficult. Contrast injection was performed. Exam performed in department. Left Ventricle Severely dilated left ventricle. The estimated ejection fraction is 30 %. Moderately severe segmental systolic dysfunction (see wall motion). Stage 3 diastolic dysfunction. [place] : Akinetic. Anterior [place] : Akinetic. Mid-anteroseptal : Severely Hypokinetic. Mid-Anterior : Severely Hypokinetic. Right Ventricle Normal RV size. Normal systolic function. Atria The left atrium is mildly enlarged. Normal right atrium. Mitral Valve Normal mitral valve. Mild (1+) eccentric mitral valve insufficiency. Aortic Valve Trisinus/trileaflet aortic valve. Great Vessels Normal aortic root. The pulmonary artery is normal size. Normal inferior vena cava. Pericardium/Pleural No pericardial effusion. Medication 22 gauge I.V. with prn adaptor inserted into right arm. Diluted definity 5ml given slow IV push to enhance endocardial definition. MMode/2D Measurements & Calculations LVIDd: 6.5 cm IVSd: 0.88 cm Ao root diam: 3.6 cm LVIDs: 5.1 cm LVPWd: 1.0 cm LA dimension: 5.0 cm RVDd: 3.3 cm FS: 21.4 % LAV(MOD-bp): 66.5 ml LA A4 area: 22.4 cm2 RA A4 area: 14.4 cm2 LAV(MOD-bp) Indexed: 26.4 ml/m2 LAV(MOD-sp2): 61.7 ml LAV(MOD-sp4): 68.9 ml Time Measurements MV dec time: 0.15 sec Doppler Measurements & Calculations MV E max rosendo: 94.4 cm/sec Lat Peak E' Rosendo: 12.3 cm/sec Med Peak E' Rosendo: 9.4 cm/sec MV A max rosendo: 39.3 cm/sec E/E' lat: 7.7 E/E' med: 10.0 MV E/A: 2.4 Ao V2 max: 116.1 cm/sec LV V1 max: 77.4 cm/sec MR max rosendo: 431.0 cm/sec Ao max P.4 mmHg LV V1 max P.4 mmHg MR max P.3 mmHg PA V2 max: 72.2 cm/sec ECHO/Echo Complete W/ Contrast Interpretation Summary Severely dilated left ventricle. The estimated ejection fraction is 30 %. Moderately severe segmental systolic dysfunction (see wall motion). Stage 3 diastolic dysfunction. Mild (1+) eccentric mitral valve insufficiency. Contrast injection was performed. Ordering Physician: Amado Platt Referring Physician: Juan Davila Performed By: Amador Osullivan RCS
--- NOTE | 2021-07-30 11:51 | STRESSREP ---
Stress Test Report Exercise myocardial perfusion stress test. 50-year-old male with a history of previous anterior myocardial infarction. Resting EKG demonstrates normal sinus rhythm with a rate of 88 bpm resting blood pressure is 114/78 mmHg. Poor R wave progression is noted suggestive of a previous anterolateral myocardial infarction. The patient exercised according to the regular Dash protocol for a total duration of 6 minutes completing stage II of the Dash protocol. The maximum heart rate attained was 148 bpm which was 88% of max infected heart rate the maximum workload was 7.2 metabolic equivalents. The patient maintained sinus rhythm throughout the recording. At rest there were no ST or T wave changes noted to suggest ischemia no arrhythmias were noted. At peak exercise nonspecific ST changes were noted which did not meet the criteria for ischemia. No chest pain was noted and the test was terminated due to shortness of breath. The peak blood pressure was noted to be 140/72 mmHg which was a normal blood pressure response to exercise. Myocardial perfusion protocol. 14.7 mCi of technetium 99m sestamibi was injected at rest. The patient exercised according to regular Dash protocol and at peak exercise 44.2 mCi of technetium 99m sestamibi was injected stress images were obtained stress and rest images were reconstructed and compared in the short axis vertical long and horizontal long axis. Gated images were also obtained. Perfusion SPECT analysis: Review of the images demonstrated a mildly dilated cardiac silhouette size. There is a large defect noted in the mid anterior wall extending to the apex and the inferior apical wall. This is present on the stress and resting images to a similar extent. The septum posterior wall inferior wall and lateral wall appear to be well perfused. The above is suggestive of her previous extensive anterior apical infarct with no significant ischemia noted. Gated SPECT analysis: The gated ejection fraction is 28%. Conclusion: Exercise myocardial perfusion stress test with evidence of anterior apical infarct with no ischemia. Cardiomyopathy noted. No angina noted. Good functional capacity.
== END ==
PROVIDERS: PCP Family Medicine; Referring Provider Internal Medicine Cardiovascular Disease; Visit Provider Internal Medicine Cardiovascular Disease
DX: I25.10 Atherosclerotic heart disease of native coronary artery without angina pectoris (principal); Z86.711 Personal history of pulmonary embolism; Z95.5 Presence of coronary angioplasty implant and graft
CPT/HCPCS: 78452; 93017; 93306; A9500; Q9957; A4216; C8929; J3490

== ENCOUNTER 2021-12-08 11:20 | Observation (INO) | payer MEDICARE, SELFPAY ==
[2020-01-14 10:20] VITALS: BMI 37.5
[2021-12-08] VITALS (7 sets, daily range): BP systolic 91–108; BP diastolic 68–72; PULSE 81–100; RESP 18–20; TEMP 35.8–36.4; O2SAT 94–97; BMI 37.3
--- NOTE | 2021-12-08 11:36 | RAD_ITS ---
STUDY: X-RAY CHEST REASON FOR EXAM: Male, 51 years old. Chest pain TECHNIQUE: Single AP portable view of the chest. COMPARISON: 10/03/2019 FINDINGS: Mild hypoventilatory changes in the right lung base. No focal infiltrate is seen. There is no demonstrated pleural abnormality. Normal cardiac silhouette. Normal mediastinum and radha. Normal visualized pulmonary arteries. Normal visualized aortic arch and descending thoracic aorta. Stable osseous structures. There is no demonstrated abnormality of the visualized soft tissue structures of the upper abdomen. RAD/Chest 1 View (Portable) IMPRESSION: No active pulmonary disease. Electronically Signed: Martin Preston MD at 12:58 EDT ,
--- NOTE | 2021-12-08 11:38 | EX.ED.DYSGE1 ---
HPI History of Present Illness Chief Complaint: Chest Pain Detail of Chief Complaint: Shortness of breath for 3 days Informant: patient and spouse/S.O. Narrative Narrative: Patient presents to the emergency department complaint not feeling well for the last 3 days. Patient complains of a lot of exertional dyspnea. Patient has intermittent discomfort to his left chest that is a heaviness. 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 Patient denies fever or recent illness otherwise. He denies recent travel or surgery. He does have history of coronary artery disease with prior cardiac stent in his LAD. Patient has remote history of a PE a year ago but not anticoagulated currently. Patient rates the pain in his chest is a 5 out of 10. He has been feeling somewhat lightheaded at times. Patient also complaining of some left upper/mid flank pain that started yesterday that is worse with deep breathing. Prior similar symptoms: No PFSH PFSH Medical History (Updated 12/08/21 @ 13:[address] 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) Paroxysmal atrial fibrillation Home Medications acyclovir 400 mg PO BID 07/18/17 [History Last Taken Unknown] acetaminophen 650 mg PO Q6H PRN PRN tab 10/05/19 [Rx Last Taken Unknown] ascorbic acid (vitamin C) 1,000 mg tablet 1 g PO DAILY tab 10/14/19 [History Last Taken Unknown] tamsulosin 0.4 mg capsule 0.4 mg PO QHS 10/14/19 [History Last Taken Unknown] allopurinol 100 mg tablet 200 mg PO BID tab 02/24/20 [History Last Taken Unknown] atorvastatin 80 mg tablet 80 mg PO QHS #90 tab 01/04/21 [Rx Last Taken Unknown] clopidogrel 75 mg tablet 75 mg PO DAILY #90 tab 01/04/21 [Rx Last Taken Unknown] carvedilol 12.5 mg tablet 12.5 mg PO BID #180 tab 04/11/21 [Rx Last Taken Unknown] furosemide 40 mg tablet 40 mg PO BID #180 tab 05/03/21 [Rx Last Taken Unknown] aspirin 81 mg tablet,delayed release 81 mg PO QDAY #90 tab 07/04/21 [Rx Last Taken Unknown] cholecalciferol (vitamin D3) 125 mcg (5,000 unit) capsule 125 mcg PO DAILY 07/04/21 [History Last Taken Unknown] imipramine HCl 25 mg tablet 25 mg PO QHS tab 07/04/21 [History Last Taken Unknown] spironolactone 50 mg tablet 50 mg PO DAILY #90 tab 12/06/21 [Rx Last Taken Unknown] Allergy/AdvReac Type Severity Reaction Status Date / Time lorazepam [From Ativan] AdvReac HALLUCINATI Verified 12/08/21 11:21 ONS ondansetron AdvReac SEVERE Verified 12/08/21 11:21 [From Zofran (as HEADACHE hydrochloride)] Family History Father Diabetes Heart disease Myocardial infarction Heart disease Mother Cancer Hypertension Brother Myocardial infarction Heart disease Surgical History History of cholecystectomy History of coronary artery stent placement (10/03/19) History of kidney surgery History of total right hip arthroplasty Social History Smoking Status: Never smoker alcohol intake: never substance use type: does not use what type of physical activity do you participate in: none ROS ROS ED Constitutional Constitutional ED: Reports systems reviewed and no addt'l complaints, except as documented; Denies body ache(s), change in weight or chills Eyes Eyes: Denies acute decrease in peripheral vision, change in vision, double vision or loss of vision ENT ENT ED: Reports none; Denies ear pain, lip swelling, loss taste/smell, neck pain, otalgia or sore throat Cardiovascular Cardiovascular: Reports none and chest pain; Denies abdominal pain, chest pain with activity, leg edema, lightheadedness, palpitations, rapid heart rate or syncope Respiratory/Chest Respiratory/Chest: Reports none and dyspnea on exertion; Denies change in mental status, dry cough, dyspnea, hemoptysis, shortness of breath at rest or shortness of breath with exertion Gastrointestinal Gastrointestinal: Reports none; Denies abdominal pain, change in stool character, diarrhea, hematemesis, hematochezia, melena, rectal bleeding or vomiting Genitourinary Genitourinary ED: Reports none; Denies abdominal discomfort, anuria, dysuria, genital pain or polyuria Musculoskeletal Musculoskeletal: Reports none and other Details: Left flank/upper back pain ; Denies arthralgias, back pain, difficulty walking, extremity pain, muscle weakness or myalgias Integumentary Reports none; Denies abscess or rash Neurologic Neurologic: Reports none; Denies abnormal gait, confusion, focal weakness, frequent falls, headache(s), loss of vision, numbness, paresthesias, radicular pain, vertigo or weakness Psychiatric Psychiatric: Reports systems reviewed and no addt'l complaints, except as documented and none; Denies behavioral changes, confusion, difficulty concentrating, hallucinations, suicidal ideation, tactile hallucinations or visual hallucinations Endocrine Endocrinology: Denies none, cold intolerance, excessive sweating, fatigue or heat intolerance Hematologic/Lymphatic Hematologic/Lymphatic: Reports none; Denies anemia, easy bleeding or easy bruising Allergic/Immunologic Allergic/Immunologic ED: Denies as per HPI, none, lip swelling, mouth swelling, throat swelling, tongue swelling or hives EXAM Physical Exam Const Vital Signs: 12/08/21 11:22 12/08/21 11:28 12/08/21 11:43 Temperature 96.5 F L Temperature Source Temporal Pulse Rate 81 Respiratory Rate 20 H Respiratory Effort Short of Breath Blood Pressure 98/71 Blood Pressure Mean 80 Pulse Ox 95 Oxygen Delivery Method Room Air Room Air Positive well nourished and well developed General Appearance ED: well developed and NAD HEENT Reports TM's clear and moist mucous membranes normocephalic and atraumatic; Negative for trauma or tenderness Tympanic Membrane ED: Yes TM's clear Eyes PERRL and EOMs intact bilaterally General Eye ED: Negative for pale conjunctiva or scleral icterus Neck no lymphadenopathy, supple and no JVD General: Negative for tenderness Chest Wall inspection of chest normal and palpation of chest normal Chest: Negative for tenderness Resp normal respiratory effort and clear to auscultation bilaterally Effort and Inspection: Negative for respiratory distress or pain with movement Auscultation: Negative for rhonchi, wheezes or diminished lung sounds Cardio regular rate, regular rhythm, S1 normal heart sound, S2 normal heart sound and no murmurs Peripheral Pulses: pulses 2+ throughout GI normal to inspection, nondistended, normoactive bowel sounds, soft to palpation, non-tender, non-distended and no masses Back/Spine no CVA tenderness and no thoracic nor lumbar tenderness Extremity normal to inspection General Extremety ED: Negative for edema General Extremity: Negative for edema Neuro oriented x3, CN's II-XII intact bilaterally, no sensory deficits noted and gait normal Sensorium / Orientation: awake, alert, oriented to person, oriented to place and oriented to time Motor Exam: strength 5/5 throughout and strength abnormal Psych mental status grossly normal Skin no rashes or lesions noted and no wounds MDM MDM MDM Narrative Medical decision making narrative: IV line established on arrival. Patient was given aspirin. Patient placed on a awake overnight monitor and given normal saline. Lab work-up obtained was unremarkable with a normal troponin and normal D-dimer. Patient remained somewhat hypotensive in the department with systolics in the 80s and 90s which is unusually low for him. He has had an increase in his Aldactone recently possible he may be getting dehydrated. Etiology of her his exertional dyspnea is unclear but given his heart history and a heart score of 5 recommended admission for further work-up and evaluation of his chest pain and exertional dyspnea. Patient case will be discussed with hospitalist. Lab Data Attestation: I reviewed the patient's lab results. Labs: Laboratory Results - last 24 hr 12/08/21 12/08/21 12/08/21 11:52 11:53 11:53 WBC Cancelled Corrected WBC Cancelled RBC Cancelled Hgb Cancelled Hct Cancelled MCV Cancelled MCH Cancelled MCHC Cancelled RDW Std Deviation Cancelled RDW Coeff of Yunior Cancelled Plt Count Cancelled MPV Cancelled Immature Gran % (Auto) Cancelled Neut % (Auto) Cancelled Lymph % (Auto) Cancelled [place] % (Auto) Cancelled Eos % (Auto) Cancelled Baso % (Auto) Cancelled Absolute Neuts (auto) Cancelled Absolute Lymphs (auto) Cancelled Total Counted Cancelled Neutrophils % (Manual) Cancelled Band Neutrophils % Cancelled Lymphocytes % (Manual) Cancelled Monocytes % (Manual) Cancelled Eosinophils % (Manual) Cancelled Basophils % (Manual) Cancelled Metamyelocytes % Cancelled Myelocytes % Cancelled Promyelocytes % Cancelled Blast Cells % Cancelled Plasma Cell % (Manual) Cancelled Other Cells % Cancelled Nucleated RBC % Cancelled Nucleated RBCs/100 WBC Cancelled Differential Comment Cancelled Diff Path Review Cancelled Hypersegmented Neuts Cancelled Atypical Lymphocytes Cancelled Reactive Lymphocytes Cancelled Smudge Cells Cancelled Toxic Granulation Cancelled Toxic Vacuolation Cancelled Dohle Bodies Cancelled Annia Rods Cancelled Platelet Estimate Cancelled Plt Morphology Comment Cancelled RBC Morphology Cancelled Polychromasia Cancelled Hypochromasia Cancelled Poikilocytosis Cancelled Basophilic Stippling Cancelled Anisocytosis Cancelled Microcytosis Cancelled Macrocytosis Cancelled Spherocytes Cancelled Sickle Cells Cancelled Target Cells Cancelled Tear Drop Cells Cancelled Ovalocytes Cancelled Stomatocytes Cancelled Buchanan-Millen Bodies Cancelled Karena Cells Cancelled Bite Cells Cancelled Crenated Cell Cancelled Acanthocytes (Spur) Cancelled Rouleaux Cancelled Schistocytes Cancelled D-Dimer Quant (PE/DVT) Cancelled Sodium Potassium Chloride Carbon Dioxide Anion Gap BUN Creatinine Estim Creat Clear Calc Est GFR (MDRD) Af Amer Est GFR (MDRD) Non-Af BUN/Creatinine Ratio Glucose Calcium Troponin I High Sens B-Natriuretic Peptide Urine Color Yellow Urine Clarity Clear Urine pH 5.0 Ur Specific Elizabeth 1.020 Urine Protein 15 H Urine Glucose (UA) Normal Urine Ketones Negative Urine Occult Blood Negative Urine Nitrite Negative Urine Bilirubin Negative Urine Urobilinogen Normal Ur Leukocyte Esterase 25 H Urine RBC 0 SEEN Urine WBC 0 SEEN Ur Squamous Epith Cells 0 SEEN Urine Bacteria 0 SEEN Urine Mucus 0 SEEN 12/08/21 12/08/21 12/08/21 11:53 11:53 12:25 WBC 11.3 H Corrected WBC RBC 4.88 Hgb 16.3 Hct 46.8 MCV 95.9 H MCH 33.4 H MCHC 34.8 RDW Std Deviation 47.0 H RDW Coeff of Yunior 13.4 Plt Count 245 MPV 10.3 Immature Gran % (Auto) 0.200 Neut % (Auto) 57.7 Lymph % (Auto) 28.2 [place] % (Auto) 10.9 H Eos % (Auto) 2.3 Baso % (Auto) 0.7 Absolute Neuts (auto) 6.5 Absolute Lymphs (auto) 3.18 Total Counted Neutrophils % (Manual) Band Neutrophils % Lymphocytes % (Manual) Monocytes % (Manual) Eosinophils % (Manual) Basophils % (Manual) Metamyelocytes % Myelocytes % Promyelocytes % Blast Cells % Plasma Cell % (Manual) Other Cells % Nucleated RBC % 0 Nucleated RBCs/100 WBC Differential Comment Diff Path Review Hypersegmented Neuts Atypical Lymphocytes Reactive Lymphocytes Smudge Cells Toxic Granulation Toxic Vacuolation Dohle Bodies Annia Rods Platelet Estimate Plt Morphology Comment RBC Morphology Polychromasia Hypochromasia Poikilocytosis Basophilic Stippling Anisocytosis Microcytosis Macrocytosis Spherocytes Sickle Cells Target Cells Tear Drop Cells Ovalocytes Stomatocytes Buchanan-Millen Bodies Karena Cells Bite Cells Crenated Cell Acanthocytes (Spur) Rouleaux Schistocytes D-Dimer Quant (PE/DVT) Sodium Cancelled Potassium Cancelled Chloride Cancelled Carbon Dioxide Cancelled Anion Gap Cancelled BUN Cancelled Creatinine Cancelled Estim Creat Clear Calc Cancelled Est GFR (MDRD) Af Amer Cancelled Est GFR (MDRD) Non-Af Cancelled BUN/Creatinine Ratio Cancelled Glucose Cancelled Calcium Cancelled Troponin I High Sens Cancelled B-Natriuretic Peptide Cancelled Urine Color Urine Clarity Urine pH Ur Specific Elizabeth Urine Protein Urine Glucose (UA) Urine Ketones Urine Occult Blood Urine Nitrite Urine Bilirubin Urine Urobilinogen Ur Leukocyte Esterase Urine RBC Urine WBC Ur Squamous Epith Cells Urine Bacteria Urine Mucus 12/08/21 12/08/21 12/08/21 12:25 12:25 12:25 WBC Corrected WBC RBC Hgb Hct MCV MCH MCHC RDW Std Deviation RDW Coeff of Yunior Plt Count MPV Immature Gran % (Auto) Neut % (Auto) Lymph % (Auto) [place] % (Auto) Eos % (Auto) Baso % (Auto) Absolute Neuts (auto) Absolute Lymphs (auto) Total Counted Neutrophils % (Manual) Band Neutrophils % Lymphocytes % (Manual) Monocytes % (Manual) Eosinophils % (Manual) Basophils % (Manual) Metamyelocytes % Myelocytes % Promyelocytes % Blast Cells % Plasma Cell % (Manual) Other Cells % Nucleated RBC % Nucleated RBCs/100 WBC Differential Comment Diff Path Review Hypersegmented Neuts Atypical Lymphocytes Reactive Lymphocytes Smudge Cells Toxic Granulation Toxic Vacuolation Dohle Bodies Annia Rods Platelet Estimate Plt Morphology Comment RBC Morphology Polychromasia Hypochromasia Poikilocytosis Basophilic Stippling Anisocytosis Microcytosis Macrocytosis Spherocytes Sickle Cells Target Cells Tear Drop Cells Ovalocytes Stomatocytes Buchanan-Millen Bodies [place] Cells Bite Cells Crenated Cell Acanthocytes (Spur) Rouleaux Schistocytes D-Dimer Quant (PE/DVT) 0.39 Sodium 135 L Potassium 3.7 Chloride 104 Carbon Dioxide 26.0 Anion Gap 5 BUN 26 H Creatinine 1.26 Estim Creat Clear Calc 76.62 Est GFR (MDRD) Af Amer 77 Est GFR (MDRD) Non-Af 64 BUN/Creatinine Ratio 20.6 H Glucose 123 H Calcium 9.1 Troponin I High Sens 58 B-Natriuretic Peptide 143.0 H Urine Color Urine Clarity Urine pH Ur Specific Elizabeth Urine Protein Urine Glucose (UA) Urine Ketones Urine Occult Blood Urine Nitrite Urine Bilirubin Urine Urobilinogen Ur Leukocyte Esterase Urine RBC Urine WBC Ur Squamous Epith Cells Urine Bacteria Urine Mucus Radiography Chest X-Ray - ED: 1 View Diagnostic Testing: Clinical Impression(s) from Imaging Studies Chest X-Ray 12/08/21 11:36 IMPRESSION: No active pulmonary disease. Electronically Signed: Martin Preston MD at 12:58 EDT , 1 view chest x-ray obtained interpreted by myself as no acute disease process. Radiology in agreement. EKG Initial EKG: Attestation: I personally reviewed and interpreted this EKG as follows: Comments: Sinus rhythm with a ventricular rate of 81 bpm with old anterior septal infarct and inferior infarct noted. Discharge Plan Triage Chief Complaint: Chest Pain ED Provider: Marietta Bower Dx/Rx/DC Orders Clinical Impression: Chest pain, Exertional dyspnea, Acute hypotension Prescriptions: No Action ascorbic acid (vitamin C) 1,000 mg tablet 1 g PO DAILY RF: 0 tamsulosin [Flomax] 0.4 mg capsule 0.4 mg PO QHS RF: 0 allopurinol 100 mg tablet 200 mg PO BID RF: 0 cholecalciferol (vitamin D3) 125 mcg (5,000 unit) capsule 125 mcg PO DAILY RF: 0 imipramine HCl 25 mg tablet 25 mg PO QHS RF: 0 aspirin [Adult Low Dose Aspirin] 81 mg tablet,delayed release (DR/EC) 81 mg PO QDAY Qty: 90 RF: 3 acyclovir 400 MG tablet 400 mg PO BID RF: 0 acetaminophen 325 MG tablet 650 mg PO Q6H PRN PRN (Reason: Pain Score 1-3/Temp > 100.7 F) RF: 0 atorvastatin 80 mg tablet 80 mg PO QHS Qty: 90 RF: 3 clopidogrel [Plavix] 75 mg tablet 75 mg PO DAILY Qty: 90 RF: 3 carvedilol 12.5 mg tablet 12.5 mg PO BID Qty: 180 RF: 3 furosemide 40 mg tablet 40 mg PO BID Qty: 180 RF: 3 spironolactone 50 mg tablet 50 mg PO DAILY Qty: 90 RF: 3 Primary Care Provider: Juan Davila Referrals: Juan Davila DO [Primary Care Provider] - Disposition Disposition: Acute Care Hospital [facility]
--- NOTE | 2021-12-08 11:45 | EKG12_ITS ---
Test Reason : Blood Pressure : / mmHG Vent. Rate : 081 BPM Atrial Rate : 081 BPM P-R Int : 180 ms QRS Dur : 094 ms QT Int : 358 ms P-R-T Axes : 040 -45 062 degrees QTc Int : 415 ms Normal sinus rhythm Left axis deviation Anteroseptal infarct , age undetermined Abnormal ECG Confirmed by MAKAYLA AC, FESTUS ([id number]), editor publications FLACO BELL ([id number]) on 12/11/2021 10:54:53 AM Referred By: DONNA Confirmed By:FESTUS BENAVIDES MD
[2021-12-08] MEDS: fentaNYL 100 MCG/2 ML Ampul 25 MCG IV (11:55)
[2021-12-08] MEDS: Aspirin 81 MG TAB.CHEW 324 MG PO (11:55)
[2021-12-08] MEDS: 0.9% Normal Saline 1,000 ML 150 ML IV (11:56)
--- NOTE | 2021-12-08 12:07 | NURSING ---
PER HAY, LAB, EVERYTHING HEMOLIZED
[2021-12-08 12:45] LABS: Absolute Lymphocyte Count 3.18 X10^3/uL (0.83-4.51); Absolute Neutrophil Count 6.5 X10^3/uL (2.0-7.7); Basophil# 0.08 X10^3/uL; Basophil% 0.7 % (0-1); Eosinophil# 0.26 X10^3/uL; Eosinophils% 2.3 % (0-5); Hematocrit 46.8 % (40-54); Hemoglobin 16.3 g/dL (13.0-16.5); Lymphocyte # 3.18 X10^3/ul (0.83-4.51); Lymphocyte % 28.2 % (19-41); Mean Corp Hgb Conc 34.8 g/dL (32-36); Mean Corpuscular Hgb 33.4 pg (27.0-32.0); Mean Corpuscular Volume 95.9 fL (80-94); Mean Platelet Vol. 10.3 fl (6.2-12.0); Monocyte# 1.23 X10^3/uL; Monocyte% 10.9 % (0-10); NRBC Flagged by Analyzer 0 % (0-5); Neutrophil % 57.7 % (47-70); Platelet Count 245 K/mm3 (150-450); RBC Distribution Width CV 13.4 % (11.6-14.6); Red Blood Count 4.88 M/mm3 (4.6-6.2); White Blood Count 11.3 K/mm3 (4.4-11.0)
[2021-12-08 12:50] LABS: Anion Gap 5 (5-15); BUN 26 mg/dL (7-18); BUN/Creat Ratio 20.6 RATIO (10-20); Calcium,Total 9.1 mg/dL (8.5-10.1); Chloride 104 mmol/L (98-107); Creatinine, Serum 1.26 mg/dL (0.70-1.30); EST Glomerular Filtration Rate 64 mL/min (>60); Est Glom Filt Rate - Afr Amer 77 mL/min (>60); Estimated Creatinine Clearance 76.62 ml/min; Glucose 123 mg/dL (74-106); Potassium 3.7 mmol/L (3.5-5.1); Sodium Level 135 mmol/L (136-145); Troponin-I HS 58 pg/mL (3.0-78.0)
[2021-12-08 12:57] LABS: Bacteria 0 SEEN /hpf (None Seen); Mucous, Urine 0 SEEN /hpf (<or=2+); Red Blood Cells-Urine 0 SEEN /hpf (0-5); Squamous Epithelial Cells - UA 0 SEEN /hpf (0-5); White Blood Cells 0 SEEN /hpf (0-5)
[2021-12-08 12:58] LABS: Color, Urine Yellow (Yellow); Glucose, Dipstick Normal (Normal); Ketone-Dipstick Negative (Negative); Leukocyte Esterase-Dipstick 25 /ul (Negative); Nitrite-Dipstick Negative (Negative); Occult Blood-Urine Negative /ul (Negative); Protein-Dipstick 15 mg/dl (Negative); Urine Bilirubin Dipstick Negative (Negative); Urine Clarity Clear (Clear); Urine Urobilinogen Normal (Normal)
[2021-12-08 13:04] LABS: D-Dimer Quantitative (DVT/PE) 0.39 FEU/ug/m (0.27-0.49)
--- NOTE | 2021-12-08 13:57 | NURSING ---
PCU TERELETSKY CP, EXERTIONAL DYSPNEA, HYPOTENSION
[2021-12-08 14:27] LABS: Troponin-I HS 55 pg/mL (3.0-78.0)
--- NOTE | 2021-12-08 14:29 | CT_ITS ---
STUDY: CTA CHEST REASON FOR EXAM: Male, 51 years old. Chest pain, history of PE RADIATION DOSAGE (If Supplied By Facility): CTDIvol = ( 15.04 ) mGy, DLP = ( 583.39 ) mGycm TECHNIQUE: The examination was performed with the intravenous administration of IV 100mL Isovue-370. Post-processing of the angiographic images was performed, with multiplanar reformation and 3D reconstruction. Individualized dose optimization techniques were used for this CT. COMPARISON: None. FINDINGS: Normal enhancement of the main pulmonary artery and right and left pulmonary arteries. Normal enhancement of the bilateral peripheral pulmonary arteries. There is no demonstrated pulmonary embolism. There is mild atherosclerotic calcification of the aortic arch with mild tortuosity. The aorta otherwise is suboptimally enhanced. Normal heart and pericardium. Normal mediastinum. Normal hilar regions. Normal visualized trachea and bronchi. The lungs are well expanded. There are no pulmonary infiltrates. There are no pleural effusions. Normal chest wall structures. Degenerative changes in the thoracolumbar junction with increased kyphosis. There is no demonstrated acute changes in the visualized upper abdomen. Status post cholecystectomy. CT/CTA Chest W/WO Contrast IMPRESSION: 1. No evidence of pulmonary embolism. 2. No focal acute infiltrate or pleural effusions. Electronically Signed: Maritn Preston MD at 15:20 EDT ,
--- NOTE | 2021-12-08 14:51 | HP.PCM.HOS_ITS ---
Documented by User: Maki Lockwood NP, [employer] 12/08/21 15:20 HPI - General General Date of Admission: 12/08/21 HPI Narrative WILLIAM COKER, is a 51 M who presents to the Emergency Room due to chest pain. Patient states this began 2 to 3 days ago. He reports increased shortness of breath with lying flat and movement however he states he feels short of breath a t rest as well. He reports intermittent left rib area pain. Denies chest pressure, pain or heaviness. He states with his prior heart attack he had significant chest pressure. He denies weight gain or swelling. States his shortness of breath feels similar to prior PE. Denies cough, fever, chills. Denies other symptoms or complaints. He has a past medical history of CAD with history of stent, ischemic cardiomyopathy, myeloid leukemia, paroxysmal atrial fibrillation, hypertension, hyperlipidemia, gout, obesity, BPH. [facility] Medical History (Updated 12/08/21 @ 13:[address] Marietta Bower, DO) Atherosclerosis of coronary artery of [place] heart without angina pectoris BMI 39.0-39.9,adult Gout History of DVT of lower extremity History of pulmonary embolus (PE) History of ST elevation myocardial infarction (STEMI) (10/03/19) Hypertriglyceridemia Ischemic cardiomyopathy LV (left ventricular) mural thrombus following ID Myeloid leukemia Obesity 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) Paroxysmal atrial fibrillation Home Medications acyclovir 400 mg PO BID 07/18/17 [History Last Taken Unknown] acetaminophen 650 mg PO Q6H PRN PRN tab 10/05/19 [Rx Last Taken Unknown] ascorbic acid (vitamin C) 1,000 mg tablet 1 g PO DAILY tab 10/14/19 [History Last Taken Unknown] tamsulosin 0.4 mg capsule 0.4 mg PO QHS 10/14/19 [History Last Taken Unknown] allopurinol 100 mg tablet 200 mg PO BID tab 02/24/20 [History Last Taken Unknown] atorvastatin 80 mg tablet 80 mg PO QHS #90 tab 01/04/21 [Rx Last Taken Unknown] clopidogrel 75 mg tablet 75 mg PO DAILY #90 tab 01/04/21 [Rx Last Taken Unknown] carvedilol 12.5 mg tablet 12.5 mg PO BID #180 tab 04/11/21 [Rx Last Taken Unknown] furosemide 40 mg tablet 40 mg PO BID #180 tab 05/03/21 [Rx Last Taken Unknown] aspirin 81 mg tablet,delayed release 81 mg PO QDAY #90 tab 07/04/21 [Rx Last Taken Unknown] cholecalciferol (vitamin D3) 125 mcg (5,000 unit) capsule 125 mcg PO DAILY 07/04/21 [History Last Taken Unknown] imipramine HCl 25 mg tablet 25 mg PO QHS tab 07/04/21 [History Last Taken Unknown] spironolactone 50 mg tablet 50 mg PO DAILY #90 tab 12/06/21 [Rx Last Taken Unknown] Allergy/AdvReac Type Severity Reaction Status Date / Time lorazepam [From Ativan] AdvReac HALLUCINATI Verified 12/08/21 11:21 ONS ondansetron AdvReac SEVERE Verified 12/08/21 11:21 [From Zofran (as HEADACHE hydrochloride)] Family History (Reviewed 12/08/21 @ 15:03 by Maki Lockwood [employer], [employer]) Father Diabetes Heart disease Myocardial infarction Heart disease Mother Cancer Hypertension Brother Myocardial infarction Heart disease Surgical History History of cholecystectomy History of coronary artery stent placement (10/03/19) History of kidney surgery History of total right hip arthroplasty Social History Smoking Status: Never smoker alcohol intake: never substance use type: does not use what type of physical activity do you participate in: none ROS Constitutional Constitutional: Denies change in weight, chills, fatigue, fever(s) or weakness Cardiovascular Cardiovascular: Reports chest pain; Denies edema, lightheadedness, palpitations or syncope Respiratory/Chest Respiratory/Chest: Reports shortness of breath at rest and shortness of breath with exertion; Denies cough, productive cough or wheezing Gastrointestinal Gastrointestinal: Denies abdominal pain, constipation, diarrhea, nausea or vomiting Genitourinary Genitourinary: Denies burning urination, difficulty urinating, dysuria, hematu ya, urinary frequency, urinary incontinence or urinary urgency Musculoskeletal Musculoskeletal: Denies back pain, joint pain or muscle weakness Integumentary Integumentary: Denies erythema, lesions, rash or wounds Neurologic Neurologic: Denies abnormal speech, confusion, dizziness, focal weakness, numbness, paresthesias, seizure-like activity or syncope Psychiatric Psychiatric: Denies anxiety or depression Hematologic/Lymphatic Hematologic/Lymphatic: Denies anemia, easy bleeding or easy bruising Allergic/Immunologic Allergic/Immunologic: Denies hives or asthma Vital Signs Vital Signs Vital Signs: 12/08/21 11:22 12/08/21 11:28 12/08/21 11:43 Temperature 96.5 F L Temperature Source Temporal Pulse Rate 81 Respiratory Rate 20 H Respiratory Effort Short of Breath Blood Pressure 98/71 Blood Pressure Mean 80 Pulse Ox 95 Oxygen Delivery Method Room Air Room Air 12/08/21 13:50 12/08/21 13:56 Temperature 96.5 F L Temperature Source Temporal Pulse Rate 83 83 Respiratory Rate 20 H 20 H Respiratory Effort Blood Pressure 92/69 91/71 Blood Pressure Mean 76 77 Pulse Ox 97 97 Oxygen Delivery Method Room Air Room Air Weight Weight: 283 lb 4.704 oz Body Mass Index (BMI) 37.3 Physical Exam Const alert, oriented x3 and no apparent distress Orientation / Consciousness: awake, oriented to person, oriented to place and oriented to time HEENT normocephalic and moist oral mucous membranes Eyes PERRL, EOMs intact bilaterally and conjunctivae normal Neck no lymphadenopathy Resp clear to auscultation bilaterally Effort and Inspection: tachypneic Auscultation: diminished lung sounds Cardio regular rate, regular rhythm and no murmurs Peripheral Pulses: pulses 2+ throughout GI normal to inspection, nondistended, normoactive bowel sounds, non-tender and non-distended Extremity normal to inspection Skin no rashes or lesions noted Lesions: no lesions Rashes: no rashes Trauma: no lacerations or abrasions Neuro CN's II-XII intact bilaterally, no focal motor deficits, no sensory deficits noted and deep tendon reflexes 2+ bilaterally Psych mental status grossly normal and affect normal Results Lab / Micro Data Result Diagrams: 12/08/21 12:25 12/08/21 12:25 Labs: Laboratory Results - last 24 hr 12/08/21 11:52: Urine Color Yellow, Urine Clarity Clear, Urine pH 5.0, Ur Specific [place] 1.020, Urine Protein 15 H, Urine Glucose (UA) Normal, Urine Ketones Negative, Urine Occult Blood Negative, Urine Nitrite Negative, Urine Bilirubin Negative, Urine Urobilinogen Normal, Ur Leukocyte Esterase 25 H, Urine RBC 0 SEEN, Urine WBC 0 SEEN, Ur Squamous Epith Cells 0 SEEN, Urine Bacteria 0 SEEN, Urine Mucus 0 SEEN 12/08/21 11:53: WBC Cancelled, Corrected WBC Cancelled, RBC Cancelled, Hgb Cancelled, Hct Cancelled, MCV Cancelled, MCH Cancelled, MCHC Cancelled, RDW Std Deviation Cancelled, RDW Coeff of Yunior Cancelled, Plt Count Cancelled, MPV Cancelled, Immature Gran % (Auto) Cancelled, Neut % (Auto) Cancelled, Lymph % (Auto) Cancelled, [place] % (Auto) Cancelled, Eos % (Auto) Cancelled, Baso % (Auto) Cancelled, Absolute Neuts (auto) Cancelled, Absolute Lymphs (auto) Cancelled, Total Counted Cancelled, Neutrophils % (Manual) Cancelled, Band Neutrophils % Cancelled, Lymphocytes % (Manual) Cancelled, Monocytes % (Manual) Cancelled, Eosinophils % (Manual) Cancelled, Basophils % (Manual) Cancelled, Metamyelocytes % Cancelled, Myelocytes % Cancelled, Promyelocytes % Cancelled, Blast Cells % Cancelled, Plasma Cell % (Manual) Cancelled, Other Cells % Cancelled, Nucleated RBC % Cancelled, Nucleated RBCs/100 WBC Cancelled, Differential Comment Cancelled, Diff Path Review Cancelled, Hypersegmented Neuts Cancelled, Atypical Lymphocytes Cancelled, Reactive Lymphocytes Cancelled, Smudge Cells Cancelled, Toxic Granulation Cancelled, Toxic Vacuolation Cancelled, Dohle Bodies Cancelled, Annia Rods Cancelled, Platelet Estimate Cancelled, Plt Morphology Comment Cancelled, RBC Morphology Cancelled, Polychromasia Cancelled, Hypochromasia Cancelled, Poikilocytosis Cancelled, Basophilic Stippling Cancelled, Anisocytosis Cancelled, Microcytosis Cancelled, Macrocytosis Ca ncelled, Spherocytes Cancelled, Sickle Cells Cancelled, Target Cells Cancelled, Tear Drop Cells Cancelled, Ovalocytes Cancelled, Stomatocytes Cancelled, [place]- [place] Bodies Cancelled, [place] Cells Cancelled, Bite Cells Cancelled, Crenated Cell Cancelled, Acanthocytes (Spur) Cancelled, Rouleaux Cancelled, Schistocytes Cancelled 12/08/21 11:53: D-Dimer Quant (PE/DVT) Cancelled 12/08/21 11:53: Sodium Cancelled, Potassium Cancelled, Chloride Cancelled, Car bon Dioxide Cancelled, Anion Gap Cancelled, BUN Cancelled, Creatinine Cancelled, Estim Creat Clear Calc Cancelled, Est GFR (MDRD) Af Amer Cancelled, Est GFR (MDRD) Non-Af Cancelled, BUN/Creatinine Ratio Cancelled, Glucose Cancelled, Calcium Cancelled, Troponin I High Sens Cancelled 12/08/21 11:53: B-Natriuretic Peptide Cancelled 12/08/21 12:25: WBC 11.3 H, RBC 4.88, Hgb 16.3, Hct 46.8, MCV 95.9 H, MCH 33.4 H , MCHC 34.8, RDW Std Deviation 47.0 H, RDW Coeff of Yunior 13.4, Plt Count 245, MPV 10.3, Immature Gran % (Auto) 0.200, Neut % (Auto) 57.7, Lymph % (Auto) 28.2, [place] % (Auto) 10.9 H, Eos % (Auto) 2.3, Baso % (Auto) 0.7, Absolute Neuts (auto) 6.5, Absolute Lymphs (auto) 3.18, Nucleated RBC % 0 12/08/21 12:25: D-Dimer Quant (PE/DVT) 0.39 12/08/21 12:25: B-Natriuretic Peptide 143.0 H 12/08/21 12:25: Sodium 135 L, Potassium 3.7, Chloride 104, Carbon Dioxide 26.0, Anion Gap 5, BUN 26 H, Creatinine 1.26, Estim Creat Clear Calc 76.62, Est GFR (MDRD) Af Amer 77, Est GFR (MDRD) Non-Af 64, BUN/Creatinine Ratio 20.6 H, Glucose 123 H, Calcium 9.1, Troponin I High Sens 58 12/08/21 13:53: Troponin I High Sens 55 Radiology Impression Chest X-Ray 12/08/21 11:36 IMPRESSION: No active pulmonary disease. Electronically Signed: Martin Preston MD at 12:58 EDT , Assessment & Plan Assessment/Plan (1) Exertional dyspnea: PLAN: 1. Dyspnea, angina equivalent? trend enzymes, cardiology consult. CTA pending given PE hx. Continue aspirin, Plavix, statin. Chest x-ray unremarkable. BNP 143. No evidence of acute failure. 2. CAD with history of stent-prior cath September 2019 with LAD stent. On aspirin, Plavix, statin, carvedilol. 3. Ischemic cardiomyopathy- Echo 07/2021 EF 30%, stage III diastolic dysfunction, mild mitral valve insufficiency. Previously on AGNES inhibitor which was discontinued due to cough. 4. Paroxysmal atrial fibrillation-no longer on anticoagulation. Continue beta- quinn. 5. Hypertension-continue carvedilol. Hold Lasix, spironolactone temporarily given hypotension. 6. Hyperlipidemia-continue statin. 7. Gout-on allopurinol. 8. Obesity-encouraged diet/lifestyle modifications. 9. BPH-continue Flomax. 10. History of myeloid leukemia-in remission. 11. History of PE/DVT-no longer on anticoagulation. DVT prophylaxis- Lovenox sc This patient was seen by DAGO Manuel under the supervision of Dr. Burnett. Time spent examining patient, reviewing data and subsequent management of care: 18 Minutes Documented by User: Dr. Driss Burnett DO 12/08/21 18:41 HPI - General General Date of Admission: 12/08/21 [facility] Medical History (Updated 12/08/21 @ 13:[address] Marietta Bower DO) Atherosclerosis of coronary artery of [place] heart without angina pectoris BMI 39.0-39.9,adult Gout History of DVT of lower extremity History of pulmonary embolus (PE) History of ST elevation myocardial infarction (STEMI) (10/03/19) Hypertriglyceridemia Ischemic cardiomyopathy LV (left ventricular) mural thrombus following ID Myeloid leukemia Obesity 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) Paroxysmal atrial fibrillation Home Medications acyclovir 400 mg PO BID 07/18/17 [History Last Taken Unknown] acetaminophen 650 mg PO Q6H PRN PRN tab 10/05/19 [Rx Last Taken Unknown] ascorbic acid (vitamin C) 1,000 mg tablet 1 g PO DAILY tab 10/14/19 [History Last Taken Unknown] tamsulosin 0.4 mg capsule 0.4 mg PO QHS 10/14/19 [History Last Taken Unknown] allopurinol 100 mg tablet 200 mg PO BID tab 02/24/20 [History Last Taken Unknown] atorvastatin 80 mg tablet 80 mg PO QHS #90 tab 01/04/21 [Rx Last Taken Unknown] clopidogrel 75 mg tablet 75 mg PO DAILY #90 tab 01/04/21 [Rx Last Taken Unknown] carvedilol 12.5 mg tablet 12.5 mg PO BID #180 tab 04/11/21 [Rx Last Taken Unknown] furosemide 40 mg tablet 40 mg PO BID #180 tab 05/03/21 [Rx Last Taken Unknown] aspirin 81 mg tablet,delayed release 81 mg PO QDAY #90 tab 07/04/21 [Rx Last Taken Unknown] cholecalciferol (vitamin D3) 125 mcg (5,000 unit) capsule 125 mcg PO DAILY 07/04/21 [History Last Taken Unknown] imipramine HCl 25 mg tablet 25 mg PO QHS tab 07/04/21 [History Last Taken Unknown] spironolactone 50 mg tablet 50 mg PO DAILY #90 tab 12/06/21 [Rx Last Taken U nknown] Allergy/AdvReac Type Severity Reaction Status Date / Time lorazepam [From Ativan] AdvReac HALLUCINATI Verified 12/08/21 11:21 ONS ondansetron AdvReac SEVERE Verified 12/08/21 11:21 [From Zofran (as HEADACHE hydrochloride)] Family History Father Diabetes Heart disease Myocardial infarction Heart disease Mother Cancer Hypertension Brother Myocardial infarction Heart disease Surgical History History of cholecystectomy History of coronary artery stent placement (10/03/19) History of kidney surgery History of total right hip arthroplasty Social History Smoking Status: Never smoker alcohol intake: never substance use type: does not use what type of physical activity do you participate in: none Results Lab / Micro Data Result Diagrams: 12/08/21 12:25 12/08/21 12:25 Charges/Coding Addendum Addendum: Patient was seen and examined independently of Maki Lockwood, he came to the ER with complaints of shortness of breath, few days ago he called his sales negotiator office who had him increase his diuretics. Patient had an episode of chest discomfort today which she describes as pressure-like in nature in the center of his chest, he is also complaining of some lateral left rib pain also especially when deep breathing. Patient has a history of coronary artery disease and ischemic cardiomyopathy, patient told me he was evaluated for an ICD but decided not to undergo implantation of the device. On examination he appeared in good health and spirits. Vital signs as documented. Skin warm and dry and without overt rashes. Neck without JVD, neck was supple, trachea midline, thyroid was normal. Lungs clear bilaterally, normal air movement was noted. Heart exam notable for regular rhythm, normal sounds and absence of murmurs, rubs or gallops. Abdomen unremarkable and without evidence of organomegaly, masses, or abdominal aortic enlargement. Bowel sounds are present, abdomen is not distended. Extremities nonedematous, no cyanosis was noted, no clubbing was noted. Neuro: Cranial nerves II through XII are grossly intact, no focal motor deficits were noted, sensation to light touch and pinprick intact, motor exam 5/5 throughout. Psych: Patient is alert and oriented x3, he does not appear anxious or depressed, he does not appear agitated. Work-up in the emergency room included a chest x-ray which showed no evidence of congestive heart failure, CBC was remarkable for a white blood cell count of 11 .3, chemistry profile showed a BUN of 26, patient's beta natruretic peptide was 143, and TSH was 4.83. Patient's pulse ox on room air was 94%. Patient had a CTA of his chest to rule out pulmonary emboli, no evidence of pulmonary emboli were noted. Impression: #1 chest pain-in a patient with known coronary artery disease, cardiac enzymes will be cycled, he will be seen in consultation by cardiology #2 dyspnea-etiology unclear, pulse ox will be monitored #3 hypotension-patient's diuretics will be held until tomorrow, he will be reevaluated in the morning #4 coronary artery disease-continue present medications except for his diuretics at this time #5 ischemic cardiomyopathy-again patient's diuretics will be held I have reviewed Maki Lockwood's history and physical including her medical assessment and plan of care with the above additions, endorse it. Total clinical time spent by myself addressing the patient's issues, reviewing the patient's medical data and collaborating with the patient's care team: 52 minutes Visit Charges OBSV E&M: [id number] Initial observation care L3
--- NOTE | 2021-12-08 15:34 | EKG12_ITS ---
Test Reason : CP Blood Pressure : / mmHG Vent. Rate : 078 BPM Atrial Rate : 078 BPM P-R Int : 178 ms QRS Dur : 096 ms QT Int : 376 ms P-R-T Axes : 036 -41 068 degrees QTc Int : 428 ms Normal sinus rhythm Left axis deviation Anteroseptal infarct , age undetermined Abnormal ECG When compared with ECG of 08-DEC-2021 11:33, MANUAL COMPARISON REQUIRED, DATA IS UNCONFIRMED Confirmed by MAKAYLA AC, FESTUS ([id number]), industrial editor FLACO BELL ([id number]) on 12/11/2021 11:14:13 AM Referred By: YUE Confirmed By:FESTUS BENAVIDES MD
[2021-12-08] MEDS: Acetaminophen 325 MG Tablet 650 MG PO (16:07)
[2021-12-08 16:25] LABS: Magnesium 1.9 mg/dL (1.6-2.6); Thyroid Stim Hormone (TSH) 4.83 uIU/mL (0.358-3.74)
--- NOTE | 2021-12-08 17:10 | CON.PCM.CA_ITS ---
Assessment & Plan Assessment/Plan (1) Old anteroseptal myocardial infarction: (2) History of coronary artery stent placement: (3) Ischemic cardiomyopathy: (4) Paroxysmal atrial fibrillation: (5) History of pulmonary embolus (PE): (6) Myeloid leukemia: (7) Chest pain: (8) Exertional dyspnea: PLAN: 51-year-old patient with history of large anterior WA in September 2019 with 100% occluded LAD Underwent PCI and stenting Subsequent follow-up with the cardiology clinic showed improvement of EF from 30-35 in September 03 with the resolution of LV thrombus This presentation with shortness of breath and left pleuritic chest pain Patient had a history of DVT with pulmonary believes him and has completed anticoagulation with apixaban Currently he is on dual antiplatelet with Plavix and low-dose aspirin. Cardiac care plan recommendations; 1. The initial set of cardiac biomarker was high sensitive troponins are negative and EKG showed age indeterminate anterior WA With the poor R wave progression across the chest leads Would recommend to continue on DAPT Plavix aspirin 2. I reviewed all his current medication patient is on high-dose statin, losartan, carvedilol beta-quinn in addition to Aldactone and his renal function is normal. 3. CTA chest on this admission, no significant abnormality We will continue to monitor and follow-up clinically. HPI Consult Data Date of Consult: 12/08/21 HPI Narrative Reason for Consultation: CAD/history of large anterior WA/short of breath/left pleuritic chest pain HPI Narrative: WILLIAM COKER, is a 51 M who presents [facility] Medical History (Updated 12/08/21 @ 13:[address] Marietta Bower, DO) Atherosclerosis of coronary artery of [place] heart without angina pectoris BMI 39.0-39.9,adult Gout History of DVT of lower extremity History of pulmonary embolus (PE) History of ST elevation myocardial infarction (STEMI) (10/03/19) Hypertriglyceridemia Ischemic cardiomyopathy LV (left ventricular) mural thrombus following WA Myeloid leukemia Obesity 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) Paroxysmal atrial fibrillation Home Medications acyclovir 400 mg PO BID 07/18/17 [History Last Taken Unknown] acetaminophen 650 mg PO Q6H PRN PRN tab 10/05/19 [Rx Last Taken Unknown] ascorbic acid (vitamin C) 1,000 mg tablet 1 g PO DAILY tab 10/14/19 [History Last Taken Unknown] tamsulosin 0.4 mg capsule 0.4 mg PO QHS 10/14/19 [History Last Taken Unknown] allopurinol 100 mg tablet 200 mg PO BID tab 02/24/20 [History Last Taken Unknown] atorvastatin 80 mg tablet 80 mg PO QHS #90 tab 01/04/21 [Rx Last Taken Unknown] clopidogrel 75 mg tablet 75 mg PO DAILY #90 tab 01/04/21 [Rx Last Taken Unknown] carvedilol 12.5 mg tablet 12.5 mg PO BID #180 tab 04/11/21 [Rx Last Taken Unknown] furosemide 40 mg tablet 40 mg PO BID #180 tab 05/03/21 [Rx Last Taken Unknown] aspirin 81 mg tablet,delayed release 81 mg PO QDAY #90 tab 07/04/21 [Rx Last Taken Unknown] cholecalciferol (vitamin D3) 125 mcg (5,000 unit) capsule 125 mcg PO DAILY 07/04/21 [History Last Taken Unknown] imipramine HCl 25 mg tablet 25 mg PO QHS tab 07/04/21 [History Last Taken Unknown] spironolactone 50 mg tablet 50 mg PO DAILY #90 tab 12/06/21 [Rx Last Taken Unknown] Allergy/AdvReac Type Severity Reaction Status Date / Time lorazepam [From Ativan] AdvReac HALLUCINATI Verified 12/08/21 11:21 ONS ondansetron AdvReac SEVERE Verified 12/08/21 11:21 [From Zofran (as HEADACHE hydrochloride)] Family History Father Diabetes Heart disease Myocardial infarction Heart disease Mother Cancer Hypertension Brother Myocardial infarction Heart disease Surgical History History of cholecystectomy History of coronary artery stent placement (10/03/19) History of kidney surgery History of total right hip arthroplasty Social History Smoking Status: Never smoker alcohol intake: never substance use type: does not use what type of physical activity do you participate in: none Physical Exam Narrative Seen and examined at bedside Sitting out in a chair Alert oriented x3 Shortness of breath on minimal exertion like walking in the room or speaking with the resolution of chest pressure Still persistent left pleuritic chest 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 Risk Stratification Risk Stratification Applicable: Yes Age >/= 65: No >/= 3 CAD Risk Factors (HTN, HLD, DM, family hx of CAD, or current smoker): Yes Aspirin Use in the Past 7 Days: Yes Severe Angina (>/= episodes in 24 hours): No EKG ST Changes >/= 0.5mm: No Positive Cardiac Marker: No GINETTE Risk Stratification Score: 2 GINETTE % Risk: 8% Risk Objective Data Vital Signs: Vital Signs Temp Pulse Resp BP Pulse Ox 96.8 F L 86 18 98/72 94 12/08/21 15:38 12/08/21 15:38 12/08/21 15:38 12/08/21 15:38 12/08/21 15:38 Oxygen Delivery Method Room Air Weight: 280 lb 10.375 oz Body Mass Index (BMI) 37.3 Intake & Output: Intake and Output for Last 24 Hours 12/06/21 12/07/21 12/08/21 23:59 23:59 23:59 Intake Total 1152.5 / 1152.5 Balance 1152.5 / 1152.5 Lab / Micro Data Result Diagrams: 12/08/21 12:25 12/08/21 12:25 Labs: Laboratory Results - last 24 hr 12/08/21 11:52: Urine Color Yellow, Urine Clarity Clear, Urine pH 5.0, Ur Specific [place] 1.020, Urine Protein 15 H, Urine Glucose (UA) Normal, Urine Ketones Negative, Urine Occult Blood Negative, Urine Nitrite Negative, Urine Bilirubin Negative, Urine Urobilinogen Normal, Ur Leukocyte Esterase 25 H, Urine RBC 0 SEEN, Urine WBC 0 SEEN, Ur Squamous Epith Cells 0 SEEN, Urine Bacteria 0 SEEN, Urine Mucus 0 SEEN 12/08/21 11:53: WBC Cancelled, Corrected WBC Cancelled, RBC Cancelled, Hgb Cancelled, Hct Cancelled, MCV Cancelled, MCH Cancelled, MCHC Cancelled, RDW Std Deviation Cancelled, RDW Coeff of Yunior Cancelled, Plt Count Cancelled, MPV Cancelled, Immature Gran % (Auto) Cancelled, Neut % (Auto) Cancelled, Lymph % (Auto) Cancelled, [place] % (Auto) Cancelled, Eos % (Auto) Cancelled, Baso % (Auto) Cancelled, Absolute Neuts (auto) Cancelled, Absolute Lymphs (auto) Cancelled, Total Counted Cancelled, Neutrophils % (Manual) Cancelled, Band Neutrophils % Cancelled, Lymphocytes % (Manual) Cancelled, Monocytes % (Manual) Cancelled, Eosinophils % (Manual) Cancelled, Basophils % (Manual) Cancelled, Metamyelocytes % Cancelled, Myelocytes % Cancelled, Promyelocytes % Cancelled, Blast Cells % Cancelled, Plasma Cell % (Manual) Cancelled, Other Cells % Cancelled, Nucleated RBC % Cancelled, Nucleated RBCs/100 WBC Cancelled, Differential Comment Cancelled, Diff Path Review Cancelled, Hypersegmented Neuts Cancelled, Atypical Lymphocytes Cancelled, Reactive Lymphocytes Cancelled, Smudge Cells Cancelled, Toxic Granulation Cancelled, Toxic Vacuolation Cancelled, Dohle Bodies Cancelled, Annia Rods Cancelled, Platelet Estimate Cancelled, Plt Morphology Comment Cancelled, RBC Morphology Cancelled, Polychromasia Cancelled, Hypochromasia Cancelled, Poikilocytosis Cancelled, Basophilic Stippling Cancelled, Anisocytosis Cancelled, Microcytosis Cancelled, Macrocytosis Cancelled, Spherocytes Cancelled, Sickle Cells Cancelled, Target Cells Cancelled, Tear Drop Cells Cancelled, Ovalocytes Cancelled, Stomatocytes Cancelled, [place] Bodies Cancelled, [place] Cells Cancelled, Bite Cells Cancelled, Crenated Cell Cancelled, Acanthocytes (Spur) Cancelled, Rouleaux Cancelled, Schistocytes Cancelled 12/08/21 11:53: D-Dimer Quant (PE/DVT) Cancelled 12/08/21 11:53: Sodium Cancelled, Potassium Cancelled, Chloride Cancelled, Carbon Dioxide Cancelled, Anion Gap Cancelled, BUN Cancelled, Creatinine Cancelled, Estim Creat Clear Calc Cancelled, Est GFR (MDRD) Af Amer Cancelled, Est GFR (MDRD) Non-Af Cancelled, BUN/Creatinine Ratio Cancelled, Glucose Cancelled, Calcium Cancelled, Troponin I High Sens Cancelled 12/08/21 11:53: B-Natriuretic Peptide Cancelled 12/08/21 12:25: WBC 11.3 H, RBC 4.88, Hgb 16.3, Hct 46.8, MCV 95.9 H, MCH 33.4 H , MCHC 34.8, RDW Std Deviation 47.0 H, RDW Coeff of Yunior 13.4, Plt Count 245, MPV 10.3, Immature Gran % (Auto) 0.200, Neut % (Auto) 57.7, Lymph % (Auto) 28.2, [place] % (Auto) 10.9 H, Eos % (Auto) 2.3, Baso % (Auto) 0.7, Absolute Neuts (auto) 6.5, Absolute Lymphs (auto) 3.18, Nucleated RBC % 0 12/08/21 12:25: D-Dimer Quant (PE/DVT) 0.39 12/08/21 12:25: B-Natriuretic Peptide 143.0 H 12/08/21 12:25: Sodium 135 L, Potassium 3.7, Chloride 104, Carbon Dioxide 26.0, Anion Gap 5, BUN 26 H, Creatinine 1.26, Estim Creat Clear Calc 76.62, Est GFR (M DRD) Af Amer 77, Est GFR (MDRD) Non-Af 64, BUN/Creatinine Ratio 20.6 H, Glucose 123 H, Calcium 9.1, Troponin I High Sens 58 12/08/21 13:53: Troponin I High Sens 55 12/08/21 13:53: Magnesium 1.9, TSH 4.83 H Cardiology Labs/Tests 12/08/21 11:52: Urine Color Yellow, Urine Clarity Clear, Urine pH 5.0, Ur Specific Gary 1.020, Urine Protein 15 H, Urine Glucose (UA) Normal, Urine Ketones Negative, Urine Occult Blood Negative, Urine Nitrite Negative, Urine Bilirubin Negative, Urine Urobilinogen Normal, Ur Leukocyte Esterase 25 H, Urine RBC 0 SEEN, Urine WBC 0 SEEN 12/08/21 11:53: WBC Cancelled, Corrected WBC Cancelled, RBC Cancelled, Hgb Can celled, Hct Cancelled, MCV Cancelled, MCH Cancelled, MCHC Cancelled, Plt Count Cancelled, MPV Cancelled, Immature Gran % (Auto) Cancelled, Neut % (Auto) Cancelled, Lymph % (Auto) Cancelled, [place] % (Auto) Cancelled, Eos % (Auto) Cancelled, Baso % (Auto) Cancelled, Absolute Neuts (auto) Cancelled, Total Counted Cancelled, Neutrophils % (Manual) Cancelled, Band Neutrophils % Cancelled, Lymphocytes % (Manual) Cancelled, Monocytes % (Manual) Cancelled, Eosinophils % (Manual) Cancelled, Basophils % (Manual) Cancelled, Metamyelocytes % Cancelled, Myelocytes % Cancelled, Promyelocytes % Cancelled, Blast Cells % Cancelled, Plasma Cell % (Manual) Cancelled, Other Cells % Cancelled, Nucleated RBC % Cancelled 12/08/21 11:53: D-Dimer Quant (PE/DVT) Cancelled 12/08/21 11:53: Sodium Cancelled, Potassium Cancelled, Chloride Cancelled, Carbon Dioxide Cancelled, Anion Gap Cancelled, BUN Cancelled, Creatinine Cancelled, Est GFR (MDRD) Af Amer Cancelled, Est GFR (MDRD) Non-Af Cancelled, BUN/Creatinine Ratio Cancelled, Glucose Cancelled, Calcium Cancelled 12/08/21 11:53: B-Natriuretic Peptide Cancelled 12/08/21 12:25: WBC 11.3 H, RBC 4.88, Hgb 16.3, Hct 46.8, MCV 95.9 H, MCH 33.4 H , MCHC 34.8, Plt Count 245, MPV 10.3, Immature Gran % (Auto) 0.200, Neut % (Auto) 57.7, Lymph % (Auto) 28.2, [place] % (Auto) 10.9 H, Eos % (Auto) 2.3, Baso % (Auto) 0.7, Absolute Neuts (auto) 6.5, Nucleated RBC % 0 12/08/21 12:25: D-Dimer Quant (PE/DVT) 0.39 12/08/21 12:25: B-Natriuretic Peptide 143.0 H 12/08/21 12:25: Sodium 135 L, Potassium 3.7, Chloride 104, Carbon Dioxide 26.0, Anion Gap 5, BUN 26 H, Creatinine 1.26, Est GFR (MDRD) Af Amer 77, Est GFR (MDRD) Non-Af 64, BUN/Creatinine Ratio 20.6 H, Glucose 123 H, Calcium 9.1 12/08/21 13:53: Magnesium 1.9 Rhythm: Normal sinus rhythm EKG: Age indeterminate anterior WA Radiography Diagnostic Testing: Radiology Impression Chest X-Ray 12/08/21 11:36 IMPRESSION: No active pulmonary disease. Electronically Signed: Martin Preston MD at 12:58 EDT , Chest CTA 12/08/21 14:29 IMPRESSION: 1. No evidence of pulmonary embolism. 2. No focal acute infiltrate or pleural effusions. Electronically Signed: Martin Preston MD at 15:20 EDT ,
[2021-12-08 19:45] LABS: Hemoglobin A1c 6.2 % (3.8-5.6)
[2021-12-08 19:53] LABS: Troponin-I HS 54 pg/mL (3.0-78.0)
[2021-12-08] MEDS: Acyclovir 200 MG Capsule 400 MG PO (21:38)
[2021-12-08] MEDS: Allopurinol 100 MG Tablet 200 MG PO (21:38)
[2021-12-08] MEDS: Imipramine HCl 25 MG Tablet PO (21:39)
[2021-12-08] MEDS: Carvedilol 12.5 MG Tablet PO (21:39)
[2021-12-08] MEDS: Atorvastatin Calcium 80 MG Tablet PO (21:39)
[2021-12-08] MEDS: Tamsulosin HCl 0.4 MG Capsule PO (21:40)
[2021-12-08] MEDS: Senna/Docusate Sodium 1 Tablet 2 TABLET PO (22:05)
[2021-12-09] VITALS (9 sets, daily range): BP systolic 88–112; BP diastolic 63–81; PULSE 82–106; RESP 14–18; TEMP 36.2–36.7; O2SAT 95–98
[2021-12-09 05:59] LABS: Basophil# 0.06 X10^3/uL; Basophil% 0.6 % (0-1); Eosinophil# 0.29 X10^3/uL; Eosinophils% 2.9 % (0-5); Hematocrit 45.6 % (40-54); Hemoglobin 16.3 g/dL (13.0-16.5); Lymphocyte % 26.6 % (19-41); Mean Corp Hgb Conc 35.7 g/dL (32-36); Mean Corpuscular Hgb 33.4 pg (27.0-32.0); Mean Corpuscular Volume 93.4 fL (80-94); Mean Platelet Vol. 10.5 fl (6.2-12.0); Monocyte# 1.07 X10^3/uL; Monocyte% 10.6 % (0-10); NRBC Flagged by Analyzer 0 % (0-5); Neutrophil # 5.99 X10^3/uL (2.7-7.7); Platelet Count 234 K/mm3 (150-450); RBC Distribution Width CV 13.4 % (11.6-14.6); RBC Distribution Width SD 45.2 fl (35.1-43.9); Red Blood Count 4.88 M/mm3 (4.6-6.2); White Blood Count 10.1 K/mm3 (4.4-11.0)
[2021-12-09 06:30] LABS: Anion Gap 9 (5-15); BUN 22 mg/dL (7-18); BUN/Creat Ratio 19.8 RATIO (10-20); Calcium,Total 8.3 mg/dL (8.5-10.1); Chloride 104 mmol/L (98-107); Cholesterol 149 mg/dL (200); Creatinine, Serum 1.11 mg/dL (0.70-1.30); EST Glomerular Filtration Rate 74 mL/min (>60); Est Glom Filt Rate - Afr Amer 89 mL/min (>60); Estimated Creatinine Clearance 86.98 ml/min; Glucose 125 mg/dL (74-106); High Density Lipoprotein 31 mg/dL; Potassium 3.3 mmol/L (3.5-5.1); Sodium Level 133 mmol/L (136-145); Triglycerides 279 mg/dL; Very Low Density Lipoprotein 56 mg/dL (5-40)
[2021-12-09] MEDS: Enoxaparin 40 MG/0.4 ML Syringe SC (09:27)
[2021-12-09] MEDS: Senna/Docusate Sodium 1 Tablet 2 TABLET PO ×2 (09:27→21:50)
[2021-12-09] MEDS: Carvedilol 12.5 MG Tablet PO ×2 (09:27→21:50)
[2021-12-09] MEDS: Acyclovir 200 MG Capsule 400 MG PO ×2 (09:28→21:51)
[2021-12-09] MEDS: Clopidogrel Bisulfate 75 MG Tablet PO (09:28)
[2021-12-09] MEDS: Aspirin E.C. 81 MG Tablet PO (09:28)
[2021-12-09] MEDS: Allopurinol 100 MG Tablet 200 MG PO ×2 (09:28→21:50)
[2021-12-09] MEDS: Losartan Potassium 25 MG Tablet PO (09:29)
[2021-12-09] MEDS: Potassium Chloride Oral Tablet 20 MEQ 40 MEQ PO (09:34)
--- NOTE | 2021-12-09 12:27 | PN.HOSP_ITS ---
Documented by User: Maki Lockwood NP, SPECIALTY SALES REPRESENTATIVE-C 12/09/21 12:44 Subjective Subjective Patient seen and examined. Shortness of breath improved at rest however patient states he becomes dyspneic with conversation and minimal exertion. Intermittent left rib area pain. Denies chest pain/pressure. Objective Data Objective Data Vital Signs: Vital Signs Temp Pulse Resp BP Pulse Ox 98.1 F 94 14 110/81 H 97 12/09/21 09:18 12/09/21 09:18 12/09/21 09:18 12/09/21 09:18 12/09/21 09:18 Oxygen Delivery Method Room Air Weight: 280 lb 10.375 oz Body Mass Index (BMI) 37.3 Intake & Output: Intake and Output for Last 24 Hours 12/07/21 12/08/21 12/09/21 23:59 23:59 23:59 Intake Total 1632.5 / 1952.5 1070 / 1070 Balance 1632.5 / 1952.5 1070 / 1070 Lab / Micro Data Result Diagrams: 12/09/21 05:38 12/09/21 05:38 Labs: Laboratory Results - last 24 hr 12/08/21 11:52: Urine Color Yellow, Urine Clarity Clear, Urine pH 5.0, Ur Specific [place] 1.020, Urine Protein 15 H, Urine Glucose (UA) Normal, Urine Ketones Negative, Urine Occult Blood Negative, Urine Nitrite Negative, Urine Bilirubin Negative, Urine Urobilinogen Normal, Ur Leukocyte Esterase 25 H, Urine RBC 0 SEEN, Urine WBC 0 SEEN, Ur Squamous Epith Cells 0 SEEN, Urine Bacteria 0 SEEN, Urine Mucus 0 SEEN 12/08/21 12:25: WBC 11.3 H, RBC 4.88, Hgb 16.3, Hct 46.8, MCV 95.9 H, MCH 33.4 H , MCHC 34.8, RDW Std Deviation 47.0 H, RDW Coeff of Yunior 13.4, Plt Count 245, MPV 10.3, Immature Gran % (Auto) 0.200, Neut % (Auto) 57.7, Lymph % (Auto) 28.2, [place] % (Auto) 10.9 H, Eos % (Auto) 2.3, Baso % (Auto) 0.7, Absolute Neuts (auto) 6.5, Absolute Lymphs (auto) 3.18, Nucleated RBC % 0 12/08/21 12:25: D-Dimer Quant (PE/DVT) 0.39 12/08/21 12:25: B-Natriuretic Peptide 143.0 H 12/08/21 12:25: Sodium 135 L, Potassium 3.7, Chloride 104, Carbon Dioxide 26.0, Anion Gap 5, BUN 26 H, Creatinine 1.26, Estim Creat Clear Calc 76.62, Est GFR (MDRD) Af Amer 77, Est GFR (MDRD) Non-Af 64, BUN/Creatinine Ratio 20.6 H, Glucose 123 H, Calcium 9.1, Troponin I High Sens 58 12/08/21 13:53: Troponin I High Sens 55 12/08/21 13:53: Magnesium 1.9, TSH 4.83 H 12/08/21 18:47: Troponin I High Sens 54 12/08/21 18:47: Hemoglobin A1c 6.2 H 12/09/21 05:38: WBC 10.1, RBC 4.88, Hgb 16.3, Hct 45.6, MCV 93.4, MCH 33.4 H, MCHC 35.7, RDW Std Deviation 45.2 H, RDW Coeff of Yunior 13.4, Plt Count 234, MPV 10.5, Immature Gran % (Auto) 0.300, Neut % (Auto) 59.0, Lymph % (Auto) 26.6, Bureau % (Auto) 10.6 H, Eos % (Auto) 2.9, Baso % (Auto) 0.6, Absolute Neuts (auto) 6.0, Absolute Lymphs (auto) 2.70, Nucleated RBC % 0 12/09/21 05:38: Sodium 133 L, Potassium 3.3 L, Chloride 104, Carbon Dioxide 20.0 L, Anion Gap 9, BUN 22 H, Creatinine 1.11, Estim Creat Clear Calc 86.98, Est GFR (MDRD) Af Amer 89, Est GFR (MDRD) Non-Af 74, BUN/Creatinine Ratio 19.8, Glucose 125 H, Calcium 8.3 L, Triglycerides 279 H, Cholesterol 149, LDL Cholesterol 62, VLDL Cholesterol 56 H, HDL Cholesterol 31 L Radiography Diagnostic Testing: Radiology Impression Chest X-Ray 12/08/21 11:36 IMPRESSION: No active pulmonary disease. Electronically Signed: Matrin Preston MD at 12:58 EDT , Chest CTA 12/08/21 14:29 IMPRESSION: 1. No evidence of pulmonary embolism. 2. No focal acute infiltrate or pleural effusions. Electronically Signed: Martin Preston MD at 15:20 EDT , Physical Exam Const alert, oriented x3 and no apparent distress Orientation / Consciousness: awake, oriented to person, oriented to place and oriented to time HEENT normocephalic and moist oral mucous membranes Eyes PERRL, EOMs intact bilaterally and conjunctivae normal Neck no lymphadenopathy Resp normal respiratory effort and clear to auscultation bilaterally Cardio regular rate, regular rhythm and no murmurs Peripheral Pulses: pulses 2+ throughout GI normal to inspection, nondistended, normoactive bowel sounds, non-tender and non-distended Extremity normal to inspection Skin no rashes or lesions noted Lesions: no lesions Rashes: no rashes Trauma: no lacerations or abrasions Neuro CN's II-XII intact bilaterally, no focal motor deficits, no sensory deficits noted and deep tendon reflexes 2+ bilaterally Psych mental status grossly normal and affect normal Assessment & Plan Assessment/Plan (1) Exertional dyspnea: PLAN: 1. Dyspnea, anginal equivalent? Cardiology consulted. CTA without PE. Continue aspirin, Plavix, statin. Chest x-ray unremarkable. BNP 143. No evidence of acute failure. Further recommendations per cardiology. Anticipate heart cath in a.m. 2. CAD with history of stent-prior cath September 2019 with LAD stent. On aspirin, Plavix, statin, carvedilol. 3. Ischemic cardiomyopathy- Echo 07/2021 EF 30%, stage III diastolic dysfunction, mild mitral valve insufficiency. Previously on AGNES inhibitor which was discontinued due to cough. Patient states his spironolactone was increased last week due to shortness of breath. He states his symptoms did not improve and he is concerned with increasing dose as he has had symptoms of gynecomastia in the past with spironolactone, intermittently holding medications until symptoms resolved. 4. Paroxysmal atrial fibrillation-no longer on anticoagulation. Continue beta- quinn. 5. Hypertension-continue carvedilol. Hold Lasix, spironolactone temporarily given hypotension. 6. Hyperlipidemia-continue statin. 7. Gout-on allopurinol. 8. Obesity-encouraged diet/lifestyle modifications. 9. BPH-continue Flomax. 10. History of myeloid leukemia-in remission. 11. History of PE/DVT-no longer on anticoagulation. 12. Probable CONY- recommend outpatient PSG. DVT prophylaxis- Lovenox sc This patient was seen by Maki Lockwood NP-Eva under the supervision of Dr. Burnett. Time spent examining patient, reviewing data and subsequent management of care: 14 Minutes Documented by User: Dr. Driss Burnett, 12/09/21 16:26 Objective Data Lab / Micro Data Result Diagrams: 12/09/21 05:38 12/09/21 05:38 Charges/Coding Addendum Addendum: Patient was seen and examined independently of Maki Lockwood today, he still complains of some shortness of breath but he has no complaints of any precordial chest pain at this time. I talked briefly with cardiology about his care. On examination he appeared in good health and spirits. Vital signs as documented. Skin warm and dry and without overt rashes. Neck without JVD, neck was supple, trachea midline, thyroid was normal. Lungs clear bilaterally, normal air movement was noted. Heart exam notable for regular rhythm, normal sounds and absence of murmurs, rubs or gallops. Abdomen unremarkable and without evidence of organomegaly, masses, or abdominal aortic enlargement. Bowel sounds are present, abdomen is not distended. Extremities nonedematous, no cyanosis was noted, no clubbing was noted. Neuro: Cranial nerves II through XII are grossly intact, no focal motor deficits were noted, sensation to light touch and pinprick intact, motor exam 5/5 throughout. Psych: Patient is alert and oriented x3, he does not appear anxious or depressed, he does not appear agitated. Impression: #1 chest pain in a patient with known coronary artery disease-etio logy unclear, patient will undergo cardiac catheterization tomorrow #2 dyspnea-etiology unknown, patient's pulse ox is normal on room air, this could be a symptom of angina #3 hypotension-I have decided to continue to hold the patient's diuretics at this time #4 ischemic cardiomyopathy-again patient will undergo heart catheterization tomorrow I have reviewed Maki Fabián's progress note including her medical assessment and plan of care and endorse it with the above additions. Total clin ical time spent by myself addressing the patient's medical issues, reviewing the patient's medical data, and collaborating with the patient's caregivers: 22 minutes Visit Charges OBSV E&M: 21128 Subsequent observation care L3
--- NOTE | 2021-12-09 15:16 | ECHOCS_ITS ---
Reason For Study: Dyspnea/SOB Procedure This was a 2D Doppler, Color Flow transthoracic echocardiogram. Contrast injection was performed. Exam performed portable in patient room. Left Ventricle The estimated ejection fraction is 30-35 %. There is evidence of diastolic dysfunction. There is severe global hypokinesis of the left ventricle. Right Ventricle Normal RV size. Normal systolic function. Atria The left atrium is mildly enlarged. Normal right atrium. No doppler evidence for ASD. Mitral Valve There is no mitral valve stenosis. Mild (1+) mitral valve insufficiency. Tricuspid Valve There is no tricuspid stenosis. Unable to estimate RV systolic pressure due to inadequate jet, pulmonary artery pressure probably normal. Aortic Valve Trisinus/trileaflet aortic valve. There is no aortic stenosis. No aortic valve insufficiency. Pulmonic Valve There is no pulmonic valvular stenosis. No pulmonic valve insufficiency. Great Vessels Normal aortic root. Pericardium/Pleural No pericardial effusion. Medication Diluted definity 4ml given slow IV push to enhance endocardial definition. MMode/2D Measurements & Calculations LVIDd: 6.0 cm IVSd: 1.1 cm Ao root diam: 3.4 cm LVIDs: 4.9 cm LVPWd: 1.4 cm RVDd: 2.8 cm FS: 17.9 % LAV(MOD-bp): 48.2 ml LVAd ap4: 42.1 cm2 SV(MOD-sp4): 50.0 ml LAV(MOD-bp) Indexed: 19.4 ml/m2 LVLd ap4: 8.6 cm LAV(MOD-sp2): 49.3 ml EDV(MOD-sp4): 169.3 ml LAV(MOD-sp4): 47.5 ml EDV(sp4-el): 174.2 ml LVAs ap4: 34.2 cm2 LVLs ap4: 8.0 cm ESV(MOD-sp4): 119.2 ml ESV(sp4-el): 123.8 ml EF(MOD-sp4): 29.6 % EF(sp4-el): 28.9 % SV(sp4-el): 50.4 ml LA A4 area: 18.4 cm2 LA dimension(2D): 5.5 cm RA A4 area: 12.2 cm2 Doppler Measurements & Calculations MV E max rosendo: 97.8 cm/sec Lat Peak E' Rosendo: 8.1 cm/sec Med Peak E' Rosendo: 7.2 cm/sec MV A max rosendo: 43.8 cm/sec E/E' lat: 12.1 E/E' med: 13.5 MV E/A: 2.2 Ao V2 max: 111.1 cm/sec LV V1 max: 83.4 cm/sec PA V2 max: 63.4 cm/sec Ao max P.9 mmHg LV V1 max P.8 mmHg Ao V2 mean: 81.8 cm/sec Ao mean P.9 mmHg Ao V2 VTI: 19.0 cm TR max rosendo: 317.6 cm/sec TR max P.4 mmHg ECHO/Echo Complete W/ Contrast Interpretation Summary The estimated ejection fraction is 30-35 %. There is evidence of diastolic dysfunction. The left atrium is mildly enlarged. Mild (1+) mitral valve insufficiency. Ordering Physician: Hortencia Tee Referring Physician: Juan Davila Performed By: Cherrie Cottrell, NATHALIE, RVT
[2021-12-09] MEDS: Furosemide 40 MG Tablet PO (16:36)
--- NOTE | 2021-12-09 17:30 | PCM.PN.CARD ---
Subjective Subjective Seen evaluated at bedside today along with the nursing staff Symptoms of chest pain improving and symptoms of shortness of breath improving Review of the cardiac telemetry showed normal sinus No events reported by the patient or the nursing staff from last night Objective Data Vital Signs: Vital Signs Temp Pulse Resp BP Pulse Ox 97.8 F 91 16 100/73 97 12/09/21 15:20 12/09/21 15:20 12/09/21 15:20 12/09/21 15:20 12/09/21 15:20 Oxygen Delivery Method Room Air Weight: 280 lb 10.375 oz Body Mass Index (BMI) 37.3 Intake & Output: Intake and Output for Last 24 Hours 12/07/21 12/08/21 12/09/21 23:59 23:59 23:59 Intake Total 1632.5 / 2.5 1070 / 1070 Balance 1632.5 / 1951.5 1070 / 1070 Lab / Micro Data Result Diagrams: 12/09/21 05:38 12/09/21 05:38 Labs: Laboratory Results - last 24 hr 12/08/21 18:47: Troponin I High Sens 54 12/08/21 18:47: Hemoglobin A1c 6.2 H 12/09/21 05:38: WBC 10.1, RBC 4.88, Hgb 16.3, Hct 45.6, MCV 93.4, MCH 33.4 H, MCHC 35.7, RDW Std Deviation 45.2 H, RDW Coeff of Yunior 13.4, Plt Count 234, MPV 10.5, Immature Gran % (Auto) 0.300, Neut % (Auto) 59.0, Lymph % (Auto) 26.6, Madison % (Auto) 10.6 H, Eos % (Auto) 2.9, Baso % (Auto) 0.6, Absolute Neuts (auto) 6.0, Absolute Lymphs (auto) 2.70, Nucleated RBC % 0 12/09/21 05:38: Sodium 133 L, Potassium 3.3 L, Chloride 104, Carbon Dioxide 20.0 L, Anion Gap 9, BUN 22 H, Creatinine 1.11, Estim Creat Clear Calc 86.98, Est GFR (MDRD) Af Amer 89, Est GFR (MDRD) Non-Af 74, BUN/Creatinine Ratio 19.8, Glucose 125 H, Calcium 8.3 L, Triglycerides 279 H, Cholesterol 149, LDL Cholesterol 62, VLDL Cholesterol 56 H, HDL Cholesterol 31 L Cardiology Labs/Tests 12/08/21 18:47: Hemoglobin A1c 6.2 H 12/09/21 05:38: WBC 10.1, RBC 4.88, Hgb 16.3, Hct 45.6, MCV 93.4, MCH 33.4 H, MCHC 35.7, Plt Count 234, MPV 10.5, Immature Gran % (Auto) 0.300, Neut % (Auto) 59.0, Lymph % (Auto) 26.6, Madison % (Auto) 10.6 H, Eos % (Auto) 2.9, Baso % (Auto) 0.6, Absolute Neuts (auto) 6.0, Nucleated RBC % 0 12/09/21 05:38: Sodium 133 L, Potassium 3.3 L, Chloride 104, Carbon Dioxide 20.0 L, Anion Gap 9, BUN 22 H, Creatinine 1.11, Est GFR (MDRD) Af Amer 89, Est GFR (MDRD) Non-Af 74, BUN/Creatinine Ratio 19.8, Glucose 125 H, Calcium 8.3 L, Triglycerides 279 H, Cholesterol 149, LDL Cholesterol 62, VLDL Cholesterol 56 H, HDL Cholesterol 31 L Rhythm: Normal sinus rhythm EKG: Age indeterminate anteroseptal VT with a poor R wave progression across the chest lead Physical Exam Narrative Patient is alert orientated x3 not in acute distress Cardiac examination; S1-S2 regular, no systolic or diastolic murmur, no pericardial rub Chest examination; minimal basilar rales bilateral Abdomen soft. Examination lower extremity; no lower extremity edema no clubbing or cyanosis Central nervous system exam no focal logical deficit. Assessment & Plan Assessment/Plan (1) History of ST elevation myocardial infarction (STEMI): (2) Old anteroseptal myocardial infarction: (3) Ischemic cardiomyopathy: (4) History of pulmonary embolus (PE): (5) Myeloid leukemia: (6) Exertional dyspnea: (7) Chest pain: PLAN: 51-year-old who admitted with symptoms of chest pain He described pressure and heaviness in the retrosternal region as well as the left pleuritic chest pain which improved significantly since admission. Patient with known CAD with anteroseptal VT in September 2019 with a PCI and stent of LAD With ejection fraction last echo around 35%. Also patient had a history of hypertension, hyperlipidemia, paroxysmal A. fib, history of myeloid leukemia in remission And history of obstructive sleep apnea She declined subcutaneous ICD at the [facility] by the EP Also had history of paroxysmal A. fib LV thrombus which distributed on his last echocardiogram Since then he was on medical treatment with dual antiplatelet aspirin/Plavix in addition to beta-quinn AGNES inhibitor and statin Cardiac care plan recommendations; Presentation is symptoms of chest pain with unstable angina, CT negative for PE Clinical presentation of heart failure I will start him on Lasix Since he is more concerned about the recurrent episode of chest pain with negative series of cardiac biomarkers and a history of stent in September 2019 I recommended to evaluate with cardiac catheterization/selective cholangiography/to assess patency of the LAD stent and also to evaluate for progression of CAD. Also echocardiogram to evaluate his LV function, no LV G due to prior history of LV apical thrombus, which resolved on subsequent echoes.
[2021-12-09] MEDS: Acetaminophen 325 MG Tablet 650 MG PO (20:08)
[2021-12-09] MEDS: Tamsulosin HCl 0.4 MG Capsule PO (21:48)
[2021-12-09] MEDS: Atorvastatin Calcium 80 MG Tablet PO (21:49)
[2021-12-09] MEDS: Imipramine HCl 25 MG Tablet PO (21:50)
[2021-12-10] VITALS (13 sets, daily range): BP systolic 83–104; BP diastolic 51–82; PULSE 73–92; RESP 16–18; TEMP 36.3–36.8; O2SAT 93–98
[2021-12-10 05:54] LABS: Absolute Lymphocyte Count 2.93 X10^3/uL (0.83-4.51); Basophil# 0.05 X10^3/uL; Basophil% 0.5 % (0-1); Eosinophil# 0.29 X10^3/uL; Hematocrit 43.7 % (40-54); Hemoglobin 15.3 g/dL (13.0-16.5); Lymphocyte # 2.93 X10^3/ul (0.83-4.51); Lymphocyte % 30.8 % (19-41); Mean Corpuscular Hgb 33.1 pg (27.0-32.0); Mean Corpuscular Volume 94.6 fL (80-94); Mean Platelet Vol. 10.6 fl (6.2-12.0); Monocyte# 1.18 X10^3/uL; Monocyte% 12.4 % (0-10); NRBC Flagged by Analyzer 0 % (0-5); Neutrophil # 5.04 X10^3/uL (2.7-7.7); Neutrophil % 53.1 % (47-70); Platelet Count 243 K/mm3 (150-450); RBC Distribution Width CV 13.5 % (11.6-14.6); RBC Distribution Width SD 46.7 fl (35.1-43.9); Red Blood Count 4.62 M/mm3 (4.6-6.2); White Blood Count 9.5 K/mm3 (4.4-11.0)
--- NOTE | 2021-12-10 05:55 | EKG12_ITS ---
Test Reason : PRE OP Blood Pressure : / mmHG Vent. Rate : 079 BPM Atrial Rate : 079 BPM P-R Int : 178 ms QRS Dur : 100 ms QT Int : 380 ms P-R-T Axes : 048 -44 057 degrees QTc Int : 435 ms Normal sinus rhythm Left axis deviation Anteroseptal infarct , age undetermined Abnormal ECG When compared with ECG of 08-DEC-2021 16:36, MANUAL COMPARISON REQUIRED, DATA IS UNCONFIRMED Confirmed by MAKAYLA AC, FESTUS ([id number]), editor department FLACO BELL ([id number]) on 12/11/2021 11:18:23 AM Referred By: MADDY Confirmed By:FESTUS BENAVIDES MD
[2021-12-10] MEDS: Aspirin E.C. 81 MG Tablet PO (06:03)
[2021-12-10] MEDS: Clopidogrel Bisulfate 75 MG Tablet PO (06:03)
[2021-12-10] MEDS: Carvedilol 12.5 MG Tablet PO (06:03)
[2021-12-10] MEDS: Losartan Potassium 25 MG Tablet PO (06:03)
[2021-12-10 06:05] LABS: Prothrombin Time (Protime)PT. 12.5 SECONDS (11.7-14.9)
[2021-12-10] MEDS: 0.9% Saline Lock 10 ML Syringe IV (06:10)
[2021-12-10 06:31] LABS: Anion Gap 7 (5-15); BUN 25 mg/dL (7-18); Calcium,Total 8.7 mg/dL (8.5-10.1); Chloride 107 mmol/L (98-107); Creatinine, Serum 0.96 mg/dL (0.70-1.30); EST Glomerular Filtration Rate 87 mL/min (>60); Est Glom Filt Rate - Afr Amer 105 mL/min (>60); Estimated Creatinine Clearance 100.57 ml/min; Glucose 140 mg/dL (74-106); Potassium 3.6 mmol/L (3.5-5.1); Sodium Level 138 mmol/L (136-145)
--- NOTE | 2021-12-10 09:38 | CASEMGMT ---
According to the [facility] website, the following are in-network tertiary facilities: [facility], [facility], [facility], [facility], [facility], [facility], and . Jareth NIX CM
--- NOTE | 2021-12-10 09:45 | CASEMGMT ---
This RN CM to room to complete COOK form and pt is out of the dept for cath. CM to complete once pt returns. SStaten RN CM
--- NOTE | 2021-12-10 11:12 | CL.D_ITS ---
Patient Name: WILLIAM COKER Study Date: 12/10/2021 Performing: Franci Pichardo MD Ht: 73 inches 185 cm : 1970 Wt: 280.4 lbs 127 kg Age: 51 Gender: male BSA: 2.48 PROCEDURE(S) PERFORMED DC02-(85199)[facility] CLINICAL PROFILE AND INDICATIONS Patient has a distal circumflex lesion that appears to be unchanged from his prior angiogram. Since then he has had a stress test which did not reveal any ischemia. Indications: Suspected CAD Heart Failure: None Stress/Imaging Stress/Image Study Performed: No CAD Presentations: Unstable angina. CONCLUSIONS Coronary artery disease as described. Elevated LVEDP. No significant aortic stenosis RECOMMENDATIONS DESCRIPTION OF PROCEDURE The patient arrived to the procedure lab. The risks and benefits of the procedure as well as a full d escription of our services here and current unavailability of surgical backup were fully explained to the patient and/or their significant other prior to the catheterization. The Timeout was completed, verifying the correct patient and procedure. The patient's procedural site was prepped and draped in the usual fashion. Local anesthetic was given subcutaneously to right radial region with Lidocaine 2% . Using a modified Seldinger technique, arterial access was obtained via the right radial artery, a 6 Fr sheath was inserted. Left Coronary Artery selective angiography was performed in multiple views u sing a 5 Fr. JL3.5 catheter. LV to AO pullback pressures were then recorded. Right Coronary Artery se lective angiography was then performed in multiple views using a 5 Fr. JR 4 catheter.The arterial she ath was pulled and a TR Band was applied for hemostasis-14 cc air CORONARY ANGIOGRAPHY DOMINANCE: Left Dominant LEFT HEART ASSESSMENT LVEDP: 32 mmHg LEFT MAIN: No significant disease noted LEFT ANTERIOR DESCENDING ARTERY: Mild luminal irregularities DIAGONAL 1: Ostial - 60 % Stenosis CIRCUMFLEX ARTERY: DISTAL CIRC: 70 % Stenosis RIGHT CORONARY ARTERY: Mild luminal irregularities. Small, nondominant VALVE FINDINGS: No Aortic Valve Stenosis COMPLICATIONS No Complications PROCEDURE MEDICATIONS Versed 1 mg IV Fentanyl 50 mcg IV Oxygen: 2 L/min via nasal cannula Heparin given IA 12/10/2021 10:29:38 Verapamil 2.5mg, Ntg 100mcgs, 3000 units of Heparin given IA 12/10/2021 10:29:38 SUMMARY OF HEMODYNAMIC DATA Time AIR REST ECG 09:58:23 AO 93/71 (82) SA 10:32:09 LV 97/6, 31 10:36:44 LV 96/6, 32 10:36:51 LVp 96/5, 31 10:36:59 AOp 93/66 (75) 10:37:04 Signed By Franci Pichardo MD On 12/10/2021 11:12:11 AM Franci Pichardo MD
[2021-12-10] MEDS: Acyclovir 200 MG Capsule 400 MG PO (11:34)
[2021-12-10] MEDS: Allopurinol 100 MG Tablet 200 MG PO (11:35)
--- NOTE | 2021-12-10 12:49 | DCINST_ITS ---
Discharge Instructions Diet Discharge Diet: Low fat / Low cholesterol, 2000 mg Sodium Diet and Carb Control Diet Activity Discharge Activity: Return to Normal Activity Dressing / Incision Call your doctor if you observe: Shortness of breath, Dizziness and Chest pain Follow Up Care Test Results: Test results from this visit will be discussed in further detail at your follow-up appointment, if applicable. Discharge Plan Admission Admit Date/Time: 12/08/21 14:31 Primary Reason for Your Visit: shortness of breath Attending Provider: Huyen Schofield Primary Care Provider: Juan Davila Consulting Providers: Hortencia Tee Instructions Additional Instructions / Restrictions: Monitor blood pressure twice daily, morning and night and document findings for follow-up with cardiology in 1 week. Discharge Orders/Prescriptions Prescriptions: Continued ascorbic acid (vitamin C) 1,000 mg tablet 1 g PO DAILY RF: 0 tamsulosin [Flomax] 0.4 mg capsule 0.4 mg PO QHS RF: 0 allopurinol 100 mg tablet 200 mg PO BID RF: 0 cholecalciferol (vitamin D3) 125 mcg (5,000 unit) capsule 125 mcg PO DAILY RF: 0 imipramine HCl 25 mg tablet 25 mg PO QHS RF: 0 aspirin [Adult Low Dose Aspirin] 81 mg tablet,delayed release (DR/EC) 81 mg PO QDAY Qty: 90 RF: 3 acyclovir 400 MG tablet 400 mg PO BID RF: 0 acetaminophen 325 MG tablet 650 mg PO Q6H PRN PRN (Reason: Pain Score 1-3/Temp > 100.7 F) RF: 0 atorvastatin 80 mg tablet 80 mg PO QHS Qty: 90 RF: 3 clopidogrel [Plavix] 75 mg tablet 75 mg PO DAILY Qty: 90 RF: 3 carvedilol 12.5 mg tablet 12.5 mg PO BID Qty: 180 RF: 3 Changed furosemide 40 mg tablet 40 mg PO DAILY Qty: 180 RF: 3 Discontinued spironolactone 50 mg tablet 50 mg PO DAILY Qty: 90 RF: 3 Referrals / Follow Up: Vin Gonzalez DO [STAFF PHYSICIAN] - Within 2 Weeks (Referral for sleep study/pulmonary function testing) Juan Davila DO [Primary Care Provider] - In 1 Day Marisol Hernandez PA [PHYSICIAN MARKETING ASSISTANT MANAGER] - In 1 Week Disposition Disposition (needs filled in before D/C Order can be placed): Home, Self Care
--- NOTE | 2021-12-10 13:07 | DS.PCM_ITS ---
Documented by User: Maki Lockwood NP, [employer] 12/10/21 13:19 Providers Date of Admission: 12/08/21 Date of Discharge: 12/10/21 Primary Care Physician: Dr. Juan Davila, Consultations 12/08/21 15:34 Consult: Cardiology Routine Consulting Provider: Hortencia Tee Reason for Consult: Chest pain, CAD EMERGENT Consult: No MD Notified: Yes Date Notified: 12/08/21 Time Notified: 14:36 Method of Notification: Verbal Comments:: notified in ER Reason For Visit: CHEST PAIN Diagnosis Discharge Diagnosis (1) History of ST elevation myocardial infarction (STEMI): Status: Resolved Code(s): I25.2 - Old myocardial infarction (2) Old anteroseptal myocardial infarction: Status: Chronic Code(s): I25.2 - Old myocardial infarction (3) Ischemic cardiomyopathy: Status: Chronic Code(s): I25.5 - Ischemic cardiomyopathy (4) History of pulmonary embolus (PE): Status: Resolved Code(s): Z86.711 - Personal history of pulmonary embolism (5) Myeloid leukemia: Status: Resolved Code(s): C92.90 - Myeloid leukemia, unspecified, not having achieved remission (6) Exertional dyspnea: Status: Acute Code(s): R06.00 - Dyspnea, unspecified (7) Chest pain: Status: Acute Code(s): R07.9 - Chest pain, unspecified Medications at Discharge Home Medications acyclovir 400 mg PO BID 07/18/17 acetaminophen 650 mg PO Q6H PRN PRN tab 10/05/19 ascorbic acid (vitamin C) 1,000 mg tablet 1 g PO DAILY tab 10/14/19 tamsulosin 0.4 mg capsule 0.4 mg PO QHS 10/14/19 allopurinol 100 mg tablet 200 mg PO BID tab 02/24/20 atorvastatin 80 mg tablet 80 mg PO QHS #90 tab 01/04/21 clopidogrel 75 mg tablet 75 mg PO DAILY #90 tab 01/04/21 carvedilol 12.5 mg tablet 12.5 mg PO BID #180 tab 04/11/21 aspirin 81 mg tablet,delayed release 81 mg PO QDAY #90 tab 07/04/21 cholecalciferol (vitamin D3) 125 mcg (5,000 unit) capsule 125 mcg PO DAILY 07/04/21 imipramine HCl 25 mg tablet 25 mg PO QHS tab 07/04/21 furosemide 40 mg PO DAILY #180 tab 12/10/21 Hospital Course Operations None Procedures 2-D Echocardiogram and Cardiac catheterization Summary of Care Provided Hospital Course: Patient is a 51-year-old male admitted 12/08/2021 due to shortness of breath. 1. Dyspnea-ACS ruled out. Troponin negative. Cardiology consulted. CTA without PE. Chest x-ray unremarkable. BNP 143. No evidence of acute failure. Patient underwent heart cath which demonstrated unchanged distal circumflex lesion. Elevated LVEDP. Echocardiogram pending and will be reviewed prior to discharge. Follow-up with cardiology in 1 week. Referred to pulmonary medicine for sleep study and PFTs. Oxygen stable on room air. 2. CAD with history of stent-prior cath September 2019 with LAD stent. On aspirin, Plavix, statin, carvedilol. 3. Ischemic cardiomyopathy- Echo 07/2021 EF 30%, stage III diastolic dysfunc tion, mild mitral valve insufficiency. Previously on AGNES inhibitor which was discontinued due to cough. Patient states his spironolactone was increased last week due to shortness of breath. He states his symptoms did not improve and he is concerned with increasing dose as he has had symptoms of gynecomastia in the past with spironolactone. Due to hypotension and breast tenderness, spironolactone discontinued at discharge. Lasix reduced to 40 mg daily per cardiology. Instructed patient on monitoring daily weight and recording blood pressure for close follow-up with cardiology. May consider addition of ARB as patient cannot tolerate AGNES inhibitor however blood pressure will not currently tolerate. 4. Paroxysmal atrial fibrillation-no longer on anticoagulation. Continue beta- quinn. 5. Hypertension-continue carvedilol. Spironolactone discontinued as noted above. 6. Hyperlipidemia-continue statin. 7. Gout-on allopurinol. 8. Obesity-encouraged diet/lifestyle modifications. 9. BPH-continue Flomax. 10. History of myeloid leukemia-in remission. 11. History of PE/DVT-no longer on anticoagulation. 12. Probable CONY- recommend outpatient PSG. Referred to pulmonary medicine. Physical Exam Const alert, oriented x3 and no apparent distress Orientation / Consciousness: awake, oriented to person, oriented to place and oriented to time HEENT normocephalic and moist oral mucous membranes Eyes PERRL, EOMs intact bilaterally and conjunctivae normal Neck no lymphadenopathy Resp normal respiratory effort and clear to auscultation bilaterally Cardio regular rate, regular rhythm and no murmurs Peripheral Pulses: pulses 2+ throughout GI normal to inspection, nondistended, normoactive bowel sounds, non-tender and non-distended Extremity normal to inspection Skin no rashes or lesions noted Lesions: no lesions Rashes: no rashes Trauma: no lacerations or abrasions Neuro CN's II-XII intact bilaterally, no focal motor deficits, no sensory deficits noted and deep tendon reflexes 2+ bilaterally Psych mental status grossly normal and affect normal Patient seen and examined prior to discharge. Physical assessment as noted above. Patient is stable for discharge with follow up recommendations as noted above. This patient was seen by DAGO Manuel under the supervision of Dr. Schofield. Weight / BMI Weight Weight: 280 lb 10.375 oz Body Mass Index (BMI) 37.3 ABG / Lab / Microbiology Data Result Diagrams: 12/10/21 05:30 12/10/21 05:30 Laboratory: Laboratory Results - last 24 hr 12/10/21 05:30: WBC 9.5, RBC 4.62, Hgb 15.3, Hct 43.7, MCV 94.6 H, MCH 33.1 H, MCHC 35.0, RDW Std Deviation 46.7 H, RDW Coeff of Yunior 13.5, Plt Count 243, MPV 10.6, Immature Gran % (Auto) 0.200, Neut % (Auto) 53.1, Lymph % (Auto) 30.8, Harney % (Auto) 12.4 H, Eos % (Auto) 3.0, Baso % (Auto) 0.5, Absolute Neuts (auto) 5.0, Absolute Lymphs (auto) 2.93, Nucleated RBC % 0 12/10/21 05:30: PT 12.5, INR 1.0 12/10/21 05:30: Sodium 138, Potassium 3.6, Chloride 107, Carbon Dioxide 24.0, Anion Gap 7, BUN 25 H, Creatinine 0.96, Estim Creat Clear Calc 100.57, Est GFR (MDRD) Af Amer 105, Est GFR (MDRD) Non-Af 87, BUN/Creatinine Ratio 26.0 H, Glucose 140 H, Calcium 8.7 D/C Instructions Discharge Diet: Low fat / Low cholesterol, 2000 mg Sodium Diet and Carb Control Diet Call your doctor if you observe: Shortness of breath, Dizziness and Chest pain Meaningful Use Info Meaningful Use Diagnoses (Choose all that apply): None applicable Discharge Plan Admission Admit Date/Time: 12/08/21 14:31 Primary Reason for Your Visit: shortness of breath Attending Provider: Huyen Schofield Primary Care Provider: Juan Davila Consulting Providers: Hortencia Tee Instructions Additional Instructions / Restrictions: Monitor blood pressure twice daily, morning and night and document findings for follow-up with cardiology in 1 week. Discharge Orders/Prescriptions Prescriptions: Continued ascorbic acid (vitamin C) 1,000 mg tablet 1 g PO DAILY RF: 0 tamsulosin [Flomax] 0.4 mg capsule 0.4 mg PO QHS RF: 0 allopurinol 100 mg tablet 200 mg PO BID RF: 0 cholecalciferol (vitamin D3) 125 mcg (5,000 unit) capsule 125 mcg PO DAILY RF: 0 imipramine HCl 25 mg tablet 25 mg PO QHS RF: 0 aspirin [Adult Low Dose Aspirin] 81 mg tablet,delayed release (DR/EC) 81 mg PO QDAY Qty: 90 RF: 3 acyclovir 400 MG tablet 400 mg PO BID RF: 0 acetaminophen 325 MG tablet 650 mg PO Q6H PRN PRN (Reason: Pain Score 1-3/Temp > 100.7 F) RF: 0 atorvastatin 80 mg tablet 80 mg PO QHS Qty: 90 RF: 3 clopidogrel [Plavix] 75 mg tablet 75 mg PO DAILY Qty: 90 RF: 3 carvedilol 12.5 mg tablet 12.5 mg PO BID Qty: 180 RF: 3 Changed furosemide 40 mg tablet 40 mg PO DAILY Qty: 180 RF: 3 Discontinued spironolactone 50 mg tablet 50 mg PO DAILY Qty: 90 RF: 3 Referrals / Follow Up: Vin Gonzalez DO [STAFF PHYSICIAN] - Within 2 Weeks (Referral for sleep study/ pulmonary function testing) Juan Davila DO [Primary Care Provider] - In 1 Day Marisol Hernandez PA [PHYSICIAN IT SOLUTIONS ARCHITECT] - In 1 Week Disposition Disposition (needs filled in before D/C Order can be placed): Home, Self Care Documented by User: Dr. Huyen Schofield DO 12/10/21 14:09 Providers Date of Admission: 12/08/21 Date of Discharge: 12/10/21 Reason For Visit: CHEST PAIN Medications at Discharge Home Medications acyclovir 400 mg PO BID 07/18/17 acetaminophen 650 mg PO Q6H PRN PRN tab 10/05/19 ascorbic acid (vitamin C) 1,000 mg tablet 1 g PO DAILY tab 10/14/19 tamsulosin 0.4 mg capsule 0.4 mg PO QHS 10/14/19 allopurinol 100 mg tablet 200 mg PO BID tab 02/24/20 atorvastatin 80 mg tablet 80 mg PO QHS #90 tab 01/04/21 clopidogrel 75 mg tablet 75 mg PO DAILY #90 tab 01/04/21 carvedilol 12.5 mg tablet 12.5 mg PO BID #180 tab 04/11/21 aspirin 81 mg tablet,delayed release 81 mg PO QDAY #90 tab 07/04/21 cholecalciferol (vitamin D3) 125 mcg (5,000 unit) capsule 125 mcg PO DAILY 07/04/21 imipramine HCl 25 mg tablet 25 mg PO QHS tab 07/04/21 furosemide 40 mg PO DAILY #180 tab 12/10/21 Hospital Course Operations None Procedures 2-D Echocardiogram, Cardiac catheterization and - (CTA of the chest) Summary of Care Provided Minutes Spent on Discharge: 42 Hospital Course: This patient was seen in conjunction with Maki Lockwood NP. The following represents my independent history and physical examination. Please see below for addendum the above. Mr. Arana is a 51-year-old white male who presented to the emergency department at [facility] on 12/08/2021 with a chief complaint of exertional shortness of breath and chest pain. The patient indicated on presentation that his symptoms began 2 to 3 days ago and he indicated he was experiencing increased shortness of breath with lying flat and movement however he did state he feels short of breath at rest as well. Denies any chest pressure or pain/h eaviness upon presentation and indicates with his previous heart attack he had significant chest pressure. He denied any weight gain or swelling. He has a history of pulmonary embolism and indicated that his shortness of breath feels similar to his prior pulmonary embolus. He denied any fever or chills, cough and had no other complaints. He did admit to about a 5-year history of crack use which he snorted and smoked. He also underwent chemotherapy for leukemia and whole body radiation. He also has a history of chemical exposure at [employer] and was around paint fumes and other chemicals and had not worn a respirator. Given his symptoms cardiology was consulted and recommended a left heart catheterization and echocardiogram be performed. The patient has a known history of ischemic cardiomyopathy and his EF has been around 30 to 35% previously. His echocardiogram was performed on the a.m. of 12/10/2021 and showed an EF of 30 to 35% with diastolic dysfunction and a mildly enlarged left atrium. His cardiac catheterization was done on 12/10/2021 as well and demonstrated a distal circumflex lesion that was unchanged from his previous angiogram, no significant aortic stenosis, and the elevated left end-diastolic pressure. The patient has been referred for ICD placement in the past but has not yet followed up. Given his persistently low EF we did recommend he follow- up with this as an outpatient. A CTA of his chest was performed given his dyspnea and history of pulmonary embolism and showed no evidence of pulmonary embolism and no acute infiltrates or pleural effusions. He did appear to have some bronchiectasis upon my review. Cardiac enzymes were cycled during his hospitalization and were as follows 56-55-54. His blood pressure was borderline during his hospitalization therefore his Aldactone was discontinued at this time. He was also experiencing gynecomastia and breast tenderness with this medication indicated he was not taking it consistently at home because of the symptoms. His Lasix was reduced him from 40 mg twice daily to 40 mg daily by cardiology secondary to his persistent hypotension. His oxygen saturations were stable on room air with rest and exertion throughout his hospitalization. He was instructed to follow-up and obtain a sleep study as an outpatient as well as pulmonary follow-up for his persistent shortness of breath. He may benefit from PFTs and a 6-minute walk test. He is to follow-up with cardiology as directed. He is to follow-up with his primary care physician in the next 1 to 2 weeks. Mr. Arana was discharged home in stable condition on 12/10/2021. Discharge diagnoses: Dyspnea CAD Hypokalemia Ischemic cardiomyopathy Paroxysmal atrial fibrillation History of LV thrombus-resolved Hypertension Hyperlipidemia Gout Obesity BPH History of myeloid leukemia History of PE/DVT Suspected CONY Physical Exam Const alert, oriented x3 and no apparent distress Constitutional Narrative: Obese middle-aged white male sitting up in a chair, is at the bedside, patient appears comfortable nontoxic General Appearance: cooperative, comfortable, well kempt and well developed Orientation / Consciousness: awake Exam Limitations: no limitations Nutritional Appearance: obese HEENT normocephalic, head/scalp atraumatic, hearing grossly normal bilaterally and moist oral mucous membranes HEENT Narrative: Mallampati is 3, no thrush Eyes PERRL, EOMs intact bilaterally and conjunctivae normal Eyes Narrative: No scleral icterus Neck no lymphadenopathy, supple and no JVD Neck Narrative: Trachea midline, no thyroid enlargement noted, neck is short and thick Resp normal respiratory effort and no retractions Auscultation: Negative for crackles, rales, rhonchi or wheezes Cardio regular rate, regular rhythm, S1 normal heart sound, S2 normal heart sound, no murmurs, no rub, no gallops, no clicks and no JVD GI normal to inspection, nondistended, normoactive bowel sounds, soft to palpation, non-tender and non-distended Extremity no clubbing, cyanosis or edema Extremity Narrative: 2+ pedal pulses Skin no rashes or lesions noted, no wounds, skin turgor normal and no jaundice Skin Narrative: Multiple tattoos Neuro oriented x3, CN's II-XII intact bilaterally, moves all extremities and no focal motor deficits Sensorium / Orientation: awake and alert Speech: speech normal Motor Exam: strength 5/5 throughout Psych affect normal ABG / Lab / Microbiology Data Result Diagrams: 12/10/21 05:30 12/10/21 05:30 Discharge Plan Admission Admit Date/Time: 12/08/21 14:31 Primary Reason for Your Visit: shortness of breath Attending Provider: Huyen Schofield Primary Care Provider: Juan Davila Consulting Providers: Hortencia Tee Instructions Additional Instructions / Restrictions: Monitor blood pressure twice daily, morning and night and document findings for follow-up with cardiology in 1 week. Discharge Orders/Prescriptions Prescriptions: Continued ascorbic acid (vitamin C) 1,000 mg tablet 1 g PO DAILY RF: 0 tamsulosin [Flomax] 0.4 mg capsule 0.4 mg PO QHS RF: 0 allopurinol 100 mg tablet 200 mg PO BID RF: 0 cholecalciferol (vitamin D3) 125 mcg (5,000 unit) capsule 125 mcg PO DAILY RF: 0 imipramine HCl 25 mg tablet 25 mg PO QHS RF: 0 aspirin [Adult Low Dose Aspirin] 81 mg tablet,delayed release (DR/EC) 81 mg PO QDAY Qty: 90 RF: 3 acyclovir 400 MG tablet 400 mg PO BID RF: 0 acetaminophen 325 MG tablet 650 mg PO Q6H PRN PRN (Reason: Pain Score 1-3/Temp > 100.7 F) RF: 0 atorvastatin 80 mg tablet 80 mg PO QHS Qty: 90 RF: 3 clopidogrel [Plavix] 75 mg tablet 75 mg PO DAILY Qty: 90 RF: 3 carvedilol 12.5 mg tablet 12.5 mg PO BID Qty: 180 RF: 3 Changed furosemide 40 mg tablet 40 mg PO DAILY Qty: 180 RF: 3 Discontinued spironolactone 50 mg tablet 50 mg PO DAILY Qty: 90 RF: 3 Referrals / Follow Up: Vin Gonzalez DO [STAFF PHYSICIAN] - Within 2 Weeks (Referral for sleep study/pulmonary function testing) Juan Davila DO [Primary Care Provider] - In 1 Day Marisol Hernandez PA [PHYSICIAN [employer]UT[employer] ARCHITECT] - In 1 Week Disposition Disposition (needs filled in before D/C Order can be placed): Home, Self Care Charges/Coding Visit Charges Inpatient E&M: 34236 Disch Hosp
--- NOTE | 2021-12-10 13:46 | CASEMGMT ---
This RN BRANDON to room with COOK form, explanation done-pt voices understanding, and signs COOK form. Original to chart and copy to pt. Pt voices no further questions/concerns/needs. SStaten BOYD CM
== END 2021-12-10 12:53 | disposition home or self-care (01) ==
LOC: ED 13:56 → PCU 14:26
PROVIDERS: Nurse Practitioner Family; Admitting Provider Internal Medicine; Emergency Provider Emergency Medicine; PCP Family Medicine; Visit Provider Internal Medicine
DX: R06.00 Dyspnea, unspecified (principal); I48.0 Paroxysmal atrial fibrillation; I25.10 Atherosclerotic heart disease of native coronary artery without angina pectoris; Z92.21 Personal history of antineoplastic chemotherapy; E78.5 Hyperlipidemia, unspecified; E87.6 Hypokalemia; N64.4 Mastodynia; N40.0 Benign prostatic hyperplasia without lower urinary tract symptoms; M10.9 Gout, unspecified; E66.9 Obesity, unspecified; I10 Essential (primary) hypertension; I25.5 Ischemic cardiomyopathy; I95.9 Hypotension, unspecified; I25.2 Old myocardial infarction; Z79.899 Other long term (current) drug therapy; Z70.2 Counseling related to sexual behavior and orientation of third party; Z79.82 Long term (current) use of aspirin; Z92.3 Personal history of irradiation; Z68.37 Body mass index [BMI] 37.0-37.9, adult; Z85.6 Personal history of leukemia; Z86.711 Personal history of pulmonary embolism; Z86.718 Personal history of other venous thrombosis and embolism
CPT/HCPCS: 36415; 71045; 71275; 80048; 80061; 81001; 83036; 83735; 83880; 84443; 84484; 85025; 85379; 85610; 93005; 93306; 93454; 96361; 96372; 96374; 99152; 99153; 99218; 99285; J7030; Q9957; Q9967; A4216; C1769; C1894; C8929; G0378

== ENCOUNTER 2021-12-23 13:01 | Inpatient (IN) | payer MEDICARE, SELFPAY ==
[2020-01-14 10:20] VITALS: BMI 37.5
[2021-12-23] VITALS (18 sets, daily range): BP systolic 102–153; BP diastolic 35–92; PULSE 88–108; RESP 12–36; TEMP 35.5–36.7; O2SAT 91–98; BMI 38.2; BMI 37.0
--- NOTE | 2021-12-23 13:11 | RAD_ITS ---
HISTORY: chest pain. TECHNIQUE: XR Chest 1 View. # of images incl. paperwork: 1. COMPARISON: 12/08/2021. FINDINGS: CARDIOMEDIASTINAL STRUCTURES: Cardiac silhouette not enlarged. Mediastinal contour unremarkable. LUNGS: Perihilar interstitial and bibasilar opacities. PLEURA: Trace right pleural effusion. OSSEOUS STRUCTURES: Unremarkable. RAD/Chest 1 View (Portable) IMPRESSION: Interstitial opacities concerning for pulmonary edema. at 1416 Reported and signed by: Madelyn Sidhu MD Electronically Signed: Madelyn Sidhu MD at 14:15 EDT ,
--- NOTE | 2021-12-23 13:11 | EKG12_ITS ---
Test Reason : CP Blood Pressure : / mmHG Vent. Rate : 108 BPM Atrial Rate : 108 BPM P-R Int : 168 ms QRS Dur : 118 ms QT Int : 338 ms P-R-T Axes : 025 -62 071 degrees QTc Int : 452 ms Sinus tachycardia Left axis deviation [id number] Anteroseptal infarct (cited on or before 03-OCT-2019) Abnormal ECG Confirmed by ARSH AC, EMILY ([id number]), editor managing director LAZARO WATSON ([id number]) on 12/26/2021 11:24:51 AM Referred By: MEGHAN Confirmed By:EMILY CABAN MD
--- NOTE | 2021-12-23 13:11 | CT_ITS ---
HISTORY: Severe SOB, chest pressure. History of leukemia treated with chemotherapy, in remission. TECHNIQUE: Helically acquired images were obtained of the chest, abdomen, and pelvis with IV contrast as per angiogram protocol with 2-D and 3-D reconstructions. A radiation dose optimization technique was used for this scan. IV Contrast dosage and agent: 100 mL [id number]. Oral contrast: None. # of images incl. paperwork: 1892. COMPARISON: XR same day, CTA 12/08/2021 FINDINGS: Chest: CENTRAL AIRWAYS: Patent. LUNGS: Mild septal thickening with groundglass opacities bilaterally. Mild bilateral lower lobe atelectasis. PLEURA: Mild-moderate bilateral pleural effusions. HEART/PERICARDIUM: No cardiomegaly. No significant pericardial effusion. Coronary artery disease present. AORTA/VESSELS: No aortic aneurysm or dissection flap. No filling defect of pulmonary arteries. MEDIASTINUM/KALA: Borderline-enlarged mediastinal lymph nodes again seen. OSSEOUS STRUCTURES: Chronic left sixth through 10th rib fractures. Abdomen and pelvis: BOWEL: Bowel including appendix nondilated. Colonic diverticulosis without pericolonic inflammation. PERITONEUM: No significant ascites. LIVER/BILIARY TREE: Fatty infiltration. Cholecystectomy. SPLEEN/PANCREAS: Homogeneous. KIDNEYS: Small bilateral renal calculi without hydronephrosis. Small left renal cyst. ADRENAL GLANDS: No nodules. VESSELS: No abdominal aortic aneurysm or dissection flap. Mild calcified plaque in the abdominal aorta and origins of its major branches. PELVIC ORGANS: Unremarkable. ABDOMINAL WALL: Small fat-containing inguinal hernias. BONES: Chronic left L1-L4 transverse process fractures Artifact from right hip arthroplasty. CT/CTA Chst, Abd, Pel W and/or WO IMPRESSION: Mild pulmonary edema with mild-moderate bilateral pleural effusions. No evidence for aortic dissection, aortic aneurysm, or pulmonary embolism. Colonic diverticulosis without acute diverticulitis. Hepatic steatosis. Cholecystectomy. Small nonobstructing bilateral renal calculi. Small left renal cyst. Individualized dose optimization techniques were used for this CT. at 1426 Reported and signed by: Madelyn Sidhu MD Electronically Signed: Madelyn Sidhu MD at 14:25 EDT ,
--- NOTE | 2021-12-23 13:15 | EKG12_ITS ---
Test Reason : Blood Pressure : / mmHG Vent. Rate : 097 BPM Atrial Rate : 097 BPM P-R Int : 184 ms QRS Dur : 120 ms QT Int : 352 ms P-R-T Axes : 050 -58 093 degrees QTc Int : 447 ms Normal sinus rhythm Left axis deviation Low voltage QRS Abnormal ECG When compared with ECG of 23-DEC-2021 13:06, MANUAL COMPARISON REQUIRED, DATA IS UNCONFIRMED Confirmed by MARIAH AC, MAGDALENA ([id number]), food expeditor FLACO BELL ([id number]) on 12/28/2021 1:12:22 PM Referred By: JONEL Confirmed By:ALBINO LEMUS MD
[2021-12-23 13:18] LABS: Absolute Neutrophil Count 7.8 X10^3/uL (2.0-7.7); Basophil# 0.09 X10^3/uL; Basophil% 0.7 % (0-1); Eosinophil# 0.28 X10^3/uL; Eosinophils% 2.3 % (0-5); Hematocrit 46.4 % (40-54); Lymphocyte % 22.3 % (19-41); Mean Corp Hgb Conc 34.5 g/dL (32-36); Mean Corpuscular Hgb 32.7 pg (27.0-32.0); Mean Corpuscular Volume 94.7 fL (80-94); Mean Platelet Vol. 10.1 fl (6.2-12.0); Monocyte# 1.19 X10^3/uL; Monocyte% 9.8 % (0-10); NRBC Flagged by Analyzer 0 % (0-5); Neutrophil # 7.83 X10^3/uL (2.7-7.7); Neutrophil % 64.6 % (47-70); Platelet Count 279 K/mm3 (150-450); RBC Distribution Width CV 14.1 % (11.6-14.6); RBC Distribution Width SD 47.8 fl (35.1-43.9); White Blood Count 12.1 K/mm3 (4.4-11.0)
--- NOTE | 2021-12-23 13:26 | ED.VIS.CHEST ---
HPI History of Present Illness Chief Complaint: Chest Pain Narrative Narrative: 51-year-old male with history of CA status post LAD stenting in 2019., Decreased ejection fraction 35%, DVT and PE presented with chest pain and shortness of breath. Patient has had this for weeks now. Previously hospitalized about a week ago for this same symptom which is worsening. He states that he cannot take a deep breath. He states he was negative for PE on his last hospitalization. Had a cardiac catheterization which showed did not have any vessel occlusion. He followed up outpatient but states he is still having problems breathing. He denies smoking history and states that he does not have any COPD or asthma. He is not had a cough or fever. No leg swelling. He does state that sitting upright makes the symptoms better and laying back makes his symptoms worse. Patient recently started on Lasix. Prior to his last discharge. Patient states his abdomen feels full. He does not feel like he has pain however. [facility] Medical History Atherosclerosis of coronary artery of [place] heart without angina pectoris BMI 39.0-39.9,adult Gout History of DVT of lower extremity History of pulmonary embolus (PE) History of ST elevation myocardial infarction (STEMI) (10/03/19) Hypertriglyceridemia Ischemic cardiomyopathy LV (left ventricular) mural thrombus following [place] Myeloid leukemia Obesity 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) Paroxysmal atrial fibrillation Home Medications acyclovir 400 mg PO BID 07/18/17 [History Last Taken Unknown] acetaminophen 650 mg PO Q6H PRN PRN tab 10/05/19 [Rx Last Taken Unknown] ascorbic acid (vitamin C) 1,000 mg tablet 1 g PO DAILY tab 10/14/19 [History Last Taken Unknown] tamsulosin 0.4 mg capsule 0.4 mg PO QHS 10/14/19 [History Last Taken Unknown] allopurinol 100 mg tablet 200 mg PO BID tab 02/24/20 [History Last Taken Unknown] clopidogrel 75 mg tablet 75 mg PO DAILY #90 tab 01/04/21 [Rx Last Taken Unknown] carvedilol 12.5 mg tablet 12.5 mg PO BID #180 tab 04/11/21 [Rx Last Taken Unknown] aspirin 81 mg tablet,delayed release 81 mg PO QDAY #90 tab 07/04/21 [Rx Last Taken Unknown] cholecalciferol (vitamin D3) 125 mcg (5,000 unit) capsule 125 mcg PO DAILY 07/04/21 [History Last Taken Unknown] furosemide 40 mg PO DAILY #180 tab 12/10/21 [Rx Last Taken Unknown] imipramine HCl 25 mg tablet 50 mg PO QHS tab 12/17/21 [History Last Taken Unknown] losartan 25 mg tablet 25 mg PO DAILY #90 tab 12/17/21 [Rx Last Taken Unknown] atorvastatin 80 mg tablet 80 mg PO QHS #90 tab 12/20/21 [Rx Last Taken Unknown] Allergy/AdvReac Type Severity Reaction Status Date / Time lorazepam [From Ativan] AdvReac HALLUCINATI Verified 12/23/21 13:02 ONS ondansetron AdvReac SEVERE Verified 12/23/21 13:02 [From Zofran (as HEADACHE hydrochloride)] Family History Father Diabetes Heart disease Myocardial infarction Heart disease Mother Cancer Hypertension Brother Myocardial infarction Heart disease Surgical History History of cholecystectomy History of coronary artery stent placement (10/03/19) History of kidney surgery History of left heart catheterization (12/10/21) History of total right hip arthroplasty Social History Smoking Status: Never smoker alcohol intake: never substance use type: does not use what type of physical activity do you participate in: none ROS ROS ED Constitutional Constitutional ED: Denies chills or fever(s) Eyes Eyes: Denies blurry vision or change in vision ENT ENT ED: Denies rhinorrhea or sore throat Cardiovascular Cardiovascular: Reports as per HPI and orthopnea Respiratory/Chest Respiratory/Chest: Reports dyspnea, dyspnea on exertion and orthopnea Gastrointestinal Gastrointestinal: Denies abdominal pain, diarrhea, nausea or vomiting Genitourinary Genitourinary ED: Denies dysuria or hematuria Musculoskeletal Musculoskeletal: Denies myalgias Integumentary Denies rash Neurologic Neurologic: Denies headache(s) or paresthesias Psychiatric Psychiatric: Reports anxiety; Denies suicidal ideation or suicidal thoughts EXAM Physical Exam Const Vital Signs: 12/23/21 13:02 12/23/21 13:07 12/23/21 13:09 Temperature 95.9 F L Temperature Source Temporal Pulse Rate 108 H Respiratory Rate 32 H 35 H Respiratory Pattern Tachypnea Blood Pressure 153/35 H 130/92 H Blood Pressure Mean 74 104 Pulse Ox 91 95 Oxygen Delivery Method Room Air Room Air Nasal Cannula Oxygen Flow Rate (L/min) 2 Fraction of Inspired Oxygen (FIO2) 12/23/21 13:11 12/23/21 13:17 12/23/21 13:59 Temperature Temperature Source Pulse Rate 105 H Respiratory Rate 34 H Respiratory Pattern Tachypnea Blood Pressure 117/91 H Blood Pressure Mean 99 Pulse Ox 96 97 Oxygen Delivery Method Nasal Cannula Oxygen Flow Rate (L/min) 2 Fraction of Inspired Oxygen (FIO2) 28 12/23/21 14:10 Temperature Temperature Source Pulse Rate 102 H Respiratory Rate 25 H Respiratory Pattern Blood Pressure 106/72 Blood Pressure Mean 83 Pulse Ox 95 Oxygen Delivery Method Bi-pap Oxygen Flow Rate (L/min) Fraction of Inspired Oxygen (FIO2) 28 Positive well nourished Constitutional Narrative: Tachypneic and tachycardic. Appears to be uncomfortable. General Appearance ED: Negative for pallor HEENT normocephalic and atraumatic Eyes PERRL and EOMs intact bilaterally Resp clear to auscultation bilaterally Resp Narrative: Tachypneic. Speaking in short sentences. Accessory muscle use. Auscultation: Negative for rales, rhonchi or wheezes Cardio regular rhythm Rate: tachycardic GI normal to inspection, nondistended, normoactive bowel sounds and no masses Neuro oriented x3 and CN's II-XII intact bilaterally Sensorium / Orientation: awake and alert Motor Exam: strength 5/5 throughout Psych Mood & Affect: anxious Skin General Skin Exam: Negative for jaundice or pallor Heart Score History: Moderately Suspicious ECG: Normal Age: >45 - <65 years Risk Factors: >/= 3 Risk Factors or History of CAD Troponin: </= Normal Limit Score: 4 MDM MDM MDM Narrative Medical decision making narrative: Patient presenting with chest tightness and shortness of breath. After further discussion it sounds as if they decreased his Lasix and his Aldactone his previous discharge. Patient lower extremities not edematous although he does have some abdominal fullness sensation. Patient is not moving a lot of air on lung exam. He does not have any wheezing. He is tachypneic but is not hypoxic and he appears to be working hard. I discussed with the patient that we should put him on BiPAP to help his work of breathing and he was amenable to this although he states he did not tolerate this before due to anxiety. I offered him Ativan and he states that would be helpful. He has a history of allergy to Ativan in the computer system however he states he is not allergic he was just overmedicated 1 time. Patient tolerated 0.5 of Ativan and BiPAP in the ER. He is now resting comfortably. EKG on my interpretation shows a sinus tachycardia with a ventricular rate of 108 bpm with left axis deviation. Patient does have subtle ST changes in V5 and V6. There is a lot of artifact but I do not see anything else significantly changed. Chest x-ray on my interpretation shows pulmonary edema and radiologist agree. Due to the patient's history of DVT/PE as well as leukemia I did think it was necessary to get a CTA of the chest however with his abdominal fullness I did obtain a CT of the chest abdomen pelvis which does not show aortic dissection or any emboli. It does identify pulmonary edema and effusions. There is a small left renal cyst that is noted. Patient given 40 mg of Lasix IV in the emergency room. CBC shows a slight leukocytosis at 12.1. There is no left shift. Renal function and electrolytes within normal limits. High-sensitivity troponin is 51. BNP has gone up to 198. Magnesium level is normal. I feel the patient would benefit from inpatient diuresis due to his new pleural effusions and difficulty breathing. Discussed with the hospitalist for admission. Patient transferred in stable condition. Impression: 1. CHF 2. Dyspnea 3. Orthopnea 4. Left renal cyst 5. Bilateral pleural effusions 6. pulmonary edema Lab Data Attestation: I reviewed the patient's lab results. Labs: Laboratory Results - last 24 hr 12/23/21 12/23/21 12/23/21 13:05 13:05 13:05 WBC 12.1 H RBC 4.90 Hgb 16.0 Hct 46.4 MCV 94.7 H MCH 32.7 H MCHC 34.5 RDW Std Deviation 47.8 H RDW Coeff of Yunior 14.1 Plt Count 279 MPV 10.1 Immature Gran % (Auto) 0.300 Neut % (Auto) 64.6 Lymph % (Auto) 22.3 [place] % (Auto) 9.8 Eos % (Auto) 2.3 Baso % (Auto) 0.7 Absolute Neuts (auto) 7.8 H Absolute Lymphs (auto) 2.70 Nucleated RBC % 0 Sodium 139 Potassium 4.5 Chloride 111 H Carbon Dioxide 24.0 Anion Gap 4 L BUN 22 H Creatinine 1.20 Estim Creat Clear Calc 80.45 Est GFR (MDRD) Af Amer 81 Est GFR (MDRD) Non-Af 67 BUN/Creatinine Ratio 18.3 Glucose 98 Calcium 9.8 Magnesium Troponin I High Sens 51 B-Natriuretic Peptide 12/23/21 12/23/21 13:05 13:05 WBC RBC Hgb Hct MCV MCH MCHC RDW Std Deviation RDW Coeff of Yunior Plt Count MPV Immature Gran % (Auto) Neut % (Auto) Lymph % (Auto) [place] % (Auto) Eos % (Auto) Baso % (Auto) Absolute Neuts (auto) Absolute Lymphs (auto) Nucleated RBC % Sodium Potassium Chloride Carbon Dioxide Anion Gap BUN Creatinine Estim Creat Clear Calc Est GFR (MDRD) Af Amer Est GFR (MDRD) Non-Af BUN/Creatinine Ratio Glucose Calcium Magnesium 1.8 Troponin I High Sens B-Natriuretic Peptide 198.0 H Radiography Diagnostic Testing: Clinical Impression(s) from Imaging Studies Chest X-Ray 12/23/21 13:11 IMPRESSION: Interstitial opacities concerning for pulmonary edema. at 1416 Reported and signed by: Madelyn Sidhu MD Electronically Signed: Madelyn Sidhu MD at 14:15 EDT Reading Location ID and State: [facility] / [place] Tel , Service support , Chest/Abdomen/Pelvis CTA 12/23/21 13:11 IMPRESSION: Mild pulmonary edema with mild-moderate bilateral pleural effusions. No evidence for aortic dissection, aortic aneurysm, or pulmonary embolism. Colonic diverticulosis without acute diverticulitis. Hepatic steatosis. Cholecystectomy. Small nonobstructing bilateral renal calculi. Small left renal cyst. Individualized dose optimization techniques were used for this CT. at 1426 Reported and signed by: Madelyn Sihdu MD Electronically Signed: Madelyn Sidhu MD at 14:25 EDT Reading Location ID and State: [address] [place] [address] Tel , Service support , Discharge Plan Triage Chief Complaint: Chest Pain Other Complaint: Shortness of Breath ED Provider: Jh Pan Dx/Rx/DC Orders Primary Care Provider: Juan Davila
[2021-12-23 13:34] LABS: Anion Gap 4 (5-15); BUN 22 mg/dL (7-18); BUN/Creat Ratio 18.3 RATIO (10-20); Calcium,Total 9.8 mg/dL (8.5-10.1); Chloride 111 mmol/L (98-107); EST Glomerular Filtration Rate 67 mL/min (>60); Est Glom Filt Rate - Afr Amer 81 mL/min (>60); Estimated Creatinine Clearance 80.45 ml/min; Glucose 98 mg/dL (74-106); Magnesium 1.8 mg/dL (1.6-2.6); Potassium 4.5 mmol/L (3.5-5.1); Sodium Level 139 mmol/L (136-145)
[2021-12-23 13:39] LABS: Troponin-I HS (w/2H Reflex) 51 pg/mL (3.0-78.0)
[2021-12-23] MEDS: LORazepam 2 MG/ML Syringe 0.5 MG IV (14:08)
--- NOTE | 2021-12-23 14:40 | HP.PCM.HOS_ITS ---
[facility] - General General Date of Admission: 12/23/21 HPI Narrative WILLIAM COKER, is a 51 M with a PMH as outlined who presents via the ED on 12/23/2021 with a complaint of chest pain. Chest pain had been going on for several weeks prior to admission. He was admitted in the hospital about 2 weeks ago for the same symptoms; he had a CTA chest which was negative for any evidence of a PE. he had a cardiac cath which showed no evidence of hemodynamically significant stenosis. He says since he was discharged, the chest pain and shortness of breath has persisted. he denied any cough, palpitations, leg swelling and said the shortness of breath was worsened with laying flat and when sitting up he felt better. During his recent admission, his lasix was decreased due to hypotension and spironolactone was discontinued due to gynecomastia. He was started on BIPAP in the ED which helped relieve his symptoms. VItals in the ED were BP of 106/72, AL of 102 and RR of 25. Oxygen saturation was 95% on BIPAP. CBC shwoed wbc of 12.1 and Hb of 16, as well as platelets of 279. Chemistry showed sodium of 139 with Cr of 1.2 and bicarb of 24. BNP was 198. CXR showed interstitial opacities concerning for pulmonary edema. CTA of the chest shwoed mild pulmonary edema with mild to moderate bilateral pleural effusions, no evidence of PE. He is being admitted to be managed for acute hypoxic respiratory failure due to bilateral pleural effusion and pulmonary edema. [facility] Medical History Atherosclerosis of coronary artery of [place] heart without angina pectoris BMI 39.0-39.9,adult Gout History of DVT of lower extremity History of pulmonary embolus (PE) History of ST elevation myocardial infarction (STEMI) (10/03/19) Hypertriglyceridemia Ischemic cardiomyopathy LV (left ventricular) mural thrombus following [place] Myeloid leukemia Obesity 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) Paroxysmal atrial fibrillation Home Medications acyclovir 400 mg PO BID 07/18/17 [History Last Taken Unknown] acetaminophen 650 mg PO Q6H PRN PRN tab 10/05/19 [Rx Last Taken Unknown] ascorbic acid (vitamin C) 1,000 mg tablet 1 g PO DAILY tab 10/14/19 [History Last Taken Unknown] tamsulosin 0.4 mg capsule 0.4 mg PO QHS 10/14/19 [History Last Taken Unknown] allopurinol 100 mg tablet 200 mg PO BID tab 02/24/20 [History Last Taken Unknown] clopidogrel 75 mg tablet 75 mg PO DAILY #90 tab 01/04/21 [Rx Last Taken Unknown] carvedilol 12.5 mg tablet 12.5 mg PO BID #180 tab 04/11/21 [Rx Last Taken Unknown] aspirin 81 mg tablet,delayed release 81 mg PO QDAY #90 tab 07/04/21 [Rx Last Taken Unknown] cholecalciferol (vitamin D3) 125 mcg (5,000 unit) capsule 125 mcg PO DAILY 07/04/21 [History Last Taken Unknown] furosemide 40 mg PO DAILY #180 tab 12/10/21 [Rx Last Taken Unknown] imipramine HCl 25 mg tablet 50 mg PO QHS tab 12/17/21 [History Last Taken Unknown] losartan 25 mg tablet 25 mg PO DAILY #90 tab 12/17/21 [Rx Last Taken Unknown] atorvastatin 80 mg tablet 80 mg PO QHS #90 tab 12/20/21 [Rx Last Taken Unknown] Allergy/AdvReac Type Severity Reaction Status Date / Time lorazepam [From Ativan] AdvReac HALLUCINATI Verified 12/23/21 13:02 ONS ondansetron AdvReac SEVERE Verified 12/23/21 13:02 [From Zofran (as HEADACHE hydrochloride)] Family History Father Diabetes Heart disease Myocardial infarction Heart disease Mother Cancer Hypertension Brother Myocardial infarction Heart disease Surgical History History of cholecystectomy History of coronary artery stent placement (10/03/19) History of kidney surgery History of left heart catheterization (12/10/21) History of total right hip arthroplasty Social History Smoking Status: Never smoker alcohol intake: never substance use type: does not use what type of physical activity do you participate in: none ROS Constitutional Constitutional: Reports malaise; Denies anorexia, chills, fatigue or weakness Eyes Eyes: Denies change in vision ENT HEENT: Denies ear pain, headache(s), nasal congestion, nasal discharge or sore throat Cardiovascular Cardiovascular: Reports dyspnea on exertion and orthopnea; Denies chest pain, edema, lightheadedness, palpitations, paroxysmal nocturnal dyspnea, rapid heart rate or syncope Respiratory/Chest Respiratory/Chest: Reports dyspnea, shortness of breath at rest and shortness of breath with exertion; Denies cough, productive cough or wheezing Gastrointestinal Gastrointestinal: Denies abdominal pain, constipation, dyspepsia, nausea or vomiting Genitourinary Genitourinary: Denies burning urination Musculoskeletal Musculoskeletal: Denies arthralgias or joint pain Psychiatric Psychiatric: Denies anxiety Endocrine Endocrinology: Denies change in body appearance Hematologic/Lymphatic Hematologic/Lymphatic: Denies anemia Vital Signs Vital Signs Vital Signs: 12/23/21 13:02 12/23/21 13:07 12/23/21 13:09 Temperature 95.9 F L Temperature Source Temporal Pulse Rate 108 H Respiratory Rate 32 H 35 H Respiratory Pattern Tachypnea Blood Pressure 153/35 H 130/92 H Blood Pressure Mean 74 104 Pulse Ox 91 95 Oxygen Delivery Method Room Air Room Air Nasal Cannula Oxygen Flow Rate (L/min) 2 Fraction of Inspired Oxygen (FIO2) 12/23/21 13:11 12/23/21 13:17 12/23/21 13:59 Temperature Temperature Source Pulse Rate 105 H Respiratory Rate 34 H Respiratory Pattern Tachypnea Blood Pressure 117/91 H Blood Pressure Mean 99 Pulse Ox 96 97 Oxygen Delivery Method Nasal Cannula Oxygen Flow Rate (L/min) 2 Fraction of Inspired Oxygen (FIO2) 28 12/23/21 14:10 Temperature Temperature Source Pulse Rate 102 H Respiratory Rate 25 H Respiratory Pattern Blood Pressure 106/72 Blood Pressure Mean 83 Pulse Ox 95 Oxygen Delivery Method Bi-pap Oxygen Flow Rate (L/min) Fraction of Inspired Oxygen (FIO2) 28 Weight Weight: 289 lb 10.998 oz Body Mass Index (BMI) 38.2 Physical Exam Const alert and oriented x3 General Appearance: cooperative HEENT normocephalic, head/scalp atraumatic, hearing grossly normal bilaterally and moist oral mucous membranes Eyes PERRL, EOMs intact bilaterally and conjunctivae normal Neck no lymphadenopathy and supple Resp Resp Narrative: diminished breath sounds bibasally, no wheezes or crackles. On BIPAP Cardio regular rate, regular rhythm, S1 normal heart sound, S2 normal heart sound and no murmurs GI normal to inspection, nondistended, normoactive bowel sounds, soft to palpation, non-tender, non-distended and hepatosplenomegaly Extremity normal to inspection and full ROM Peripheral Pulses: Yes pulses 2+ throughout Skin no rashes or lesions noted Neuro oriented x3, CN's II-XII intact bilaterally and moves all extremities Sensorium / Orientation: awake and alert Psych affect normal Results Lab / Micro Data Result Diagrams: 12/23/21 13:05 12/23/21 13:05 Labs: Laboratory Results - last 24 hr 12/23/21 13:05: WBC 12.1 H, RBC 4.90, Hgb 16.0, Hct 46.4, MCV 94.7 H, MCH 32.7 H , MCHC 34.5, RDW Std Deviation 47.8 H, RDW Coeff of Yunior 14.1, Plt Count 279, MPV 10.1, Immature Gran % (Auto) 0.300, Neut % (Auto) 64.6, Lymph % (Auto) 22.3, [place] % (Auto) 9.8, Eos % (Auto) 2.3, Baso % (Auto) 0.7, Absolute Neuts (auto) 7.8 H, Absolute Lymphs (auto) 2.70, Nucleated RBC % 0 12/23/21 13:05: Sodium 139, Potassium 4.5, Chloride 111 H, Carbon Dioxide 24.0, Anion Gap 4 L, BUN 22 H, Creatinine 1.20, Estim Creat Clear Calc 80.45, Est GFR (MDRD) Af Amer 81, Est GFR (MDRD) Non-Af 67, BUN/Creatinine Ratio 18.3, Glucose 98, Calcium 9.8 12/23/21 13:05: Troponin I High Sens 51 12/23/21 13:05: Magnesium 1.8 12/23/21 13:05: B-Natriuretic Peptide 198.0 H Radiology Impression Chest X-Ray 12/23/21 13:11 IMPRESSION: Interstitial opacities concerning for pulmonary edema. at 1416 Reported and signed by: Madelyn Sidhu MD Electronically Signed: Madelyn Sidhu MD at 14:15 EDT , Chest/Abdomen/Pelvis CTA 12/23/21 13:11 IMPRESSION: Mild pulmonary edema with mild-moderate bilateral pleural effusions. No evidence for aortic dissection, aortic aneurysm, or pulmonary embolism. Colonic diverticulosis without acute diverticulitis. Hepatic steatosis. Cholecystectomy. Small nonobstructing bilateral renal calculi. Small left renal cyst. Individualized dose optimization techniques were used for this CT. at 1426 Reported and signed by: Madelyn Sidhu MD Electronically Signed: Madelyn Sidhu MD at 14:25 EDT Reading Location ID and State: [facility] / [place] Tel , Service support , Assessment & Plan Assessment/Plan (1) Acute respiratory failure with hypoxia: (2) Pleural effusion: PLAN: #Acute hypoxic respiratory failure * due to bilateral pleural effusions and pulmonary edema * admit to PCU with telemetry * Chest CT showed mild pulmonary edema with mild to moderate bilateral pleural effusions. No evidence of PE or aortic dissection or aneurysm * patient put on BIPAP in the ED * has knwon EF of 3% * diurese with IV lasix 40mg bid. * monitor intake and output. Fluid restriction to 1500cc daily. * #Acute on chronic combined heart failure * Has known EF of 30% with stage III diastolic dysfunction from 2D echo done in July 2021. * Put on IV Lasix 40 mg twice daily as above. His Lasix dose was decreased recently due to hypotension. He was also on spironolactone which was discontinued on account of gynecomastia * Monitor intake and output. Fluid restriction 1500 cc daily. * #Paroxysmal afib: on carvedilol. Not anticoagulated #Hypertension; on carvedilol. 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 TO follow up with pulmonology on outpatient basis for formal diagnosis with sleep study. DVT prophylaxis: lovenox CODE STATUS: Full code * Patient counseled extensively about different types of CODE STATUS including full code, DNR CCA and DNR CCA. Patient elects to be full code. * Total [id number] time 16 minutes. Charges/Coding Visit Charges Inpatient E&M: 69134 Init Hosp L3 Procedures Hospitalists Procedures: 27445 Advncd Care Plan 30 Min
[2021-12-23] MEDS: Furosemide 40 MG/4 ML Vial IV ×2 (14:59→18:26)
[2021-12-23 15:15] LABS: Reflex Troponin-HS? (from REC) Y
[2021-12-23 16:47] LABS: Troponin-I HS 51 pg/mL (3.0-78.0)
--- NOTE | 2021-12-23 17:52 | PCM.CONS.C ---
Assessment & Plan Assessment/Plan (1) Atherosclerosis of coronary artery of [place] heart without angina pectoris: (2) Hypertriglyceridemia: (3) Acute on chronic systolic heart failure: PLAN: Patient presented to the ER complaining of symptoms of shortness of breath and also he described heaviness in the chest This symptoms has been ongoing for the last 2 to 3 days walking for short distance in his house he developed shortness of breath There is no weight gain and there is no lower extremity swelling Cardiac care plan recommendation; 1. Noted he had cardiomegaly with evidence of congestive heart failure on the chest x-ray done in the ER Patient diuresed very well on Lasix 40 mg IV twice daily 2. He had ischemic cardiomyopathy with a history of PCI and stent to the LAD and had a recent cardiac catheterization and decision was made to treat with medical therapy with dual antiplatelet aspirin Plavix 3. Added Aldactone 25 mg the current medication he had normal renal function 4. His heart rate is on admission was sinus tachycardia heart rate of 100 O2 now his heart rate is around 84 would recommend to increase the dose of carvedilol to 25 mg twice daily once he is stable 5. I added long-acting nitroglycerin Imdur 30 mg to his current medication. We will continue to monitor and follow-up clinically HPI Consult Data Date of Consult: 12/23/21 HPI Narrative Reason for Consultation: Ischemic cardiomyopathy/Shortness of breath with chest pain HPI Narrative: WILLIAM COKER, is a 51 M who presents [facility] Medical History Atherosclerosis of coronary artery of [place] heart without angina pectoris BMI 39.0-39.9,adult Gout History of DVT of lower extremity History of pulmonary embolus (PE) History of ST elevation myocardial infarction (STEMI) (10/03/19) Hypertriglyceridemia Ischemic cardiomyopathy LV (left ventricular) mural thrombus following RI Myeloid leukemia Obesity 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) Paroxysmal atrial fibrillation Home Medications acyclovir 400 mg PO BID 07/18/17 [History Last Taken Unknown] acetaminophen 650 mg PO Q6H PRN PRN tab 10/05/19 [Rx Last Taken Unknown] ascorbic acid (vitamin C) 1,000 mg tablet 1 g PO DAILY tab 10/14/19 [History Last Taken Unknown] tamsulosin 0.4 mg capsule 0.4 mg PO QHS 10/14/19 [History Last Taken Unknown] allopurinol 100 mg tablet 200 mg PO BID tab 02/24/20 [History Last Taken Unknown] clopidogrel 75 mg tablet 75 mg PO DAILY #90 tab 01/04/21 [Rx Last Taken Unknown] carvedilol 12.5 mg tablet 12.5 mg PO BID #180 tab 04/11/21 [Rx Last Taken Unknown] aspirin 81 mg tablet,delayed release 81 mg PO QDAY #90 tab 07/04/21 [Rx Last Taken Unknown] cholecalciferol (vitamin D3) 125 mcg (5,000 unit) capsule 125 mcg PO DAILY 07/04/21 [History Last Taken Unknown] furosemide 40 mg PO DAILY #180 tab 12/10/21 [Rx Last Taken Unknown] imipramine HCl 25 mg tablet 50 mg PO QHS tab 12/17/21 [History Last Taken Unknown] losartan 25 mg tablet 25 mg PO DAILY #90 tab 12/17/21 [Rx Last Taken Unknown] atorvastatin 80 mg tablet 80 mg PO QHS #90 tab 12/20/21 [Rx Last Taken Unknown] Allergy/AdvReac Type Severity Reaction Status Date / Time lorazepam [From Ativan] AdvReac HALLUCINATI Verified 12/23/21 13:02 ONS ondansetron AdvReac SEVERE Verified 12/23/21 13:02 [From Zofran (as HEADACHE hydrochloride)] Family History Father Diabetes Heart disease Myocardial infarction Heart disease Mother Cancer Hypertension Brother Myocardial infarction Heart disease Surgical History History of cholecystectomy History of coronary artery stent placement (10/03/19) History of kidney surgery History of left heart catheterization (12/10/21) History of total right hip arthroplasty Social History Smoking Status: Never smoker alcohol intake: never substance use type: does not use what type of physical activity do you participate in: none Physical Exam Narrative Seen in the left at bedside along with the nursing staff Feeling better after was given IV Lasix diuresed very well No symptoms of chest pain still have mild shortness of breath Cardiovascular exam superintendent sales showed sinus rhythm with a heart rate of around 80s S1-S2 regular, no systolic or diastolic murmur Chest exam diminished air entry bilateral with minimal basilar rales Abdomen soft Examination lower extremity no lower extremity swelling or edema. Risk Stratification Risk Stratification Applicable: Yes Age >/= 65: No >/= 3 CAD Risk Factors (HTN, HLD, DM, family hx of CAD, or current smoker): Yes Aspirin Use in the Past 7 Days: Yes Severe Angina (>/= episodes in 24 hours): No EKG ST Changes >/= 0.5mm: No Positive Cardiac Marker: No GINETTE Risk Stratification Score: 2 GINETTE % Risk: 8% Risk Objective Data Vital Signs: Vital Signs Temp Pulse Resp BP Pulse Ox 97.9 F 93 20 H 102/79 98 12/23/21 17:36 12/23/21 17:36 12/23/21 17:36 12/23/21 17:36 12/23/21 17:36 Oxygen Flow Rate (L/min) 2 Oxygen Delivery Method Nasal Cannula Weight: 280 lb 6.848 oz Body Mass Index (BMI) 37.0 Lab / Micro Data Result Diagrams: 12/23/21 13:05 12/23/21 13:05 Labs: Laboratory Results - last 24 hr 12/23/21 13:05: WBC 12.1 H, RBC 4.90, Hgb 16.0, Hct 46.4, MCV 94.7 H, MCH 32.7 H, MCHC 34.5, RDW Std Deviation 47.8 H, RDW Coeff of [place] 14.1, Plt Count 279, MPV 10.1, Immature Gran % (Auto) 0.300, Neut % (Auto) 64.6, Lymph % (Auto) 22.3, [place] % (Auto) 9.8, Eos % (Auto) 2.3, Baso % (Auto) 0.7, Absolute Neuts (auto) 7.8 H, Absolute Lymphs (auto) 2.70, Nucleated RBC % 0 12/23/21 13:05: Sodium 139, Potassium 4.5, Chloride 111 H, Carbon Dioxide 24.0, Anion Gap 4 L, BUN 22 H, Creatinine 1.20, Estim Creat Clear Calc 80.45, Est GFR (MDRD) Af Amer 81, Est GFR (MDRD) Non-Af 67, BUN/Creatinine Ratio 18.3, Glucose 98, Calcium 9.8 12/23/21 13:05: Troponin I High Sens 51 12/23/21 13:05: Magnesium 1.8 12/23/21 13:05: B-Natriuretic Peptide 198.0 H 12/23/21 14:38: COVID-19 (CRISTI) Not Detected 12/23/21 16:10: Troponin I High Sens 51 Cardiology Labs/Tests 12/23/21 13:05: WBC 12.1 H, RBC 4.90, Hgb 16.0, Hct 46.4, MCV 94.7 H, MCH 32.7 H, MCHC 34.5, Plt Count 279, MPV 10.1, Immature Gran % (Auto) 0.300, Neut % (Auto) 64.6, Lymph % (Auto) 22.3, [place] % (Auto) 9.8, Eos % (Auto) 2.3, Baso % (Auto) 0.7, Absolute Neuts (auto) 7.8 H, Nucleated RBC % 0 12/23/21 13:05: Sodium 139, Potassium 4.5, Chloride 111 H, Carbon Dioxide 24.0, Anion Gap 4 L, BUN 22 H, Creatinine 1.20, Est GFR (MDRD) Af Amer 81, Est GFR (MDRD) Non-Af 67, BUN/Creatinine Ratio 18.3, Glucose 98, Calcium 9.8 12/23/21 13:05: Magnesium 1.8 12/23/21 13:05: B-Natriuretic Peptide 198.0 H Rhythm: Normal sinus rhythm EKG: Age indeterminate anterior RI Radiography Diagnostic Testing: Radiology Impression Chest X-Ray 12/23/21 13:11 IMPRESSION: Interstitial opacities concerning for pulmonary edema. at 1416 Reported and signed by: Madelyn Sidhu MD Electronically Signed: Madelyn Sidhu MD at 14:15 EDT , Chest/Abdomen/Pelvis CTA 12/23/21 13:11 IMPRESSION: Mild pulmonary edema with mild-moderate bilateral pleural effusions. No evidence for aortic dissection, aortic aneurysm, or pulmonary embolism. Colonic diverticulosis without acute diverticulitis. Hepatic steatosis. Cholecystectomy. Small nonobstructing bilateral renal calculi. Small left renal cyst. Individualized dose optimization techniques were used for this CT. at 1426 Reported and signed by: Madelyn Sidhu MD Electronically Signed: Madelyn Sidhu MD at 14:25 EDT ,
[2021-12-23] MEDS: Spironolactone 25 MG Tablet PO (18:26)
[2021-12-23] MEDS: Ipratropium/Albuterol Sulfate 3 ML AMPUL.NEB INHALATION (19:32)
[2021-12-23] MEDS: Acyclovir 200 MG Capsule 400 MG PO (19:39)
[2021-12-23] MEDS: Tamsulosin HCl 0.4 MG Capsule PO (19:40)
[2021-12-23] MEDS: Atorvastatin Calcium 80 MG Tablet PO (19:41)
[2021-12-23] MEDS: Carvedilol 12.5 MG Tablet PO (19:41)
[2021-12-23] MEDS: Allopurinol 100 MG Tablet 200 MG PO (19:43)
[2021-12-23] MEDS: Imipramine HCl 25 MG Tablet 50 MG PO (19:43)
[2021-12-23 20:48] LABS: Troponin-I HS 59 pg/mL (3.0-78.0)
[2021-12-24] VITALS (10 sets, daily range): BP systolic 101–103; BP diastolic 70–81; PULSE 81–107; RESP 16–22; TEMP 36.4–36.8; O2SAT 93–99
[2021-12-24] MEDS: Ipratropium/Albuterol Sulfate 3 ML AMPUL.NEB INHALATION ×2 (07:00→11:01)
--- NOTE | 2021-12-24 08:27 | PCM.PN.CARD ---
Subjective Subjective Patient seen and valuated. Appears to be doing well this morning. No complaints. Thinks he was breathing better with the BiPAP. Objective Data Vital Signs: Vital Signs Temp Pulse Resp BP Pulse Ox 97.5 F L 89 22 H 102/73 94 12/24/21 06:46 12/24/21 07:00 12/24/21 07:00 12/24/21 06:46 12/24/21 06:46 Oxygen Flow Rate (L/min) 95 Oxygen Delivery Method Nasal Cannula Weight: 276 lb 0.3 oz Body Mass Index (BMI) 37.0 Intake & Output: Intake and Output for Last 24 Hours 12/22/21 12/23/21 12/24/21 23:59 23:59 23:59 Intake Total 380 / 700 440 / 440 Output Total 1400 / 3000 2225 / 2225 Balance -1020 / -2300 -1785 / -1785 Lab / Micro Data Result Diagrams: 12/23/21 13:05 12/23/21 13:05 Labs: Laboratory Results - last 24 hr 12/23/21 13:05: WBC 12.1 H, RBC 4.90, Hgb 16.0, Hct 46.4, MCV 94.7 H, MCH 32.7 H, MCHC 34.5, RDW Std Deviation 47.8 H, RDW Coeff of [place] 14.1, Plt Count 279, MPV 10.1, Immature Gran % (Auto) 0.300, Neut % (Auto) 64.6, Lymph % (Auto) 22.3, [place] % (Auto) 9.8, Eos % (Auto) 2.3, Baso % (Auto) 0.7, Absolute Neuts (auto) 7.8 H, Absolute Lymphs (auto) 2.70, Nucleated RBC % 0 12/23/21 13:05: Sodium 139, Potassium 4.5, Chloride 111 H, Carbon Dioxide 24.0, Anion Gap 4 L, BUN 22 H, Creatinine 1.20, Estim Creat Clear Calc 80.45, Est GFR (MDRD) Af Amer 81, Est GFR (MDRD) Non-Af 67, BUN/Creatinine Ratio 18.3, Glucose 98, Calcium 9.8 12/23/21 13:05: Troponin I High Sens 51 12/23/21 13:05: Magnesium 1.8 12/23/21 13:05: B-Natriuretic Peptide 198.0 H 12/23/21 14:38: COVID-19 (CRISTI) Not Detected 12/23/21 16:10: Troponin I High Sens 51 12/23/21 19:35: Troponin I High Sens 59 Cardiology Labs/Tests 12/23/21 13:05: WBC 12.1 H, RBC 4.90, Hgb 16.0, Hct 46.4, MCV 94.7 H, MCH 32.7 H, MCHC 34.5, Plt Count 279, MPV 10.1, Immature Gran % (Auto) 0.300, Neut % (Auto) 64.6, Lymph % (Auto) 22.3, [place] % (Auto) 9.8, Eos % (Auto) 2.3, Baso % (Auto) 0.7, Absolute Neuts (auto) 7.8 H, Nucleated RBC % 0 12/23/21 13:05: Sodium 139, Potassium 4.5, Chloride 111 H, Carbon Dioxide 24.0, Anion Gap 4 L, BUN 22 H, Creatinine 1.20, Est GFR (MDRD) Af Amer 81, Est GFR (MDRD) Non-Af 67, BUN/Creatinine Ratio 18.3, Glucose 98, Calcium 9.8 12/23/21 13:05: Magnesium 1.8 12/23/21 13:05: B-Natriuretic Peptide 198.0 H Rhythm: EKG: ECHO: Stress Test: Cardiac Cath: PCI: CT Surgery: Holter monitor: EPS: PPM: CXR: Chest CT Scan: Radiography Diagnostic Testing: Radiology Impression Chest X-Ray 12/23/21 13:11 IMPRESSION: Interstitial opacities concerning for pulmonary edema. at 1416 Reported and signed by: Madelyn Sidhu MD Electronically Signed: Madelyn Sidhu MD at 14:15 EDT , Chest/Abdomen/Pelvis CTA 12/23/21 13:11 IMPRESSION: Mild pulmonary edema with mild-moderate bilateral pleural effusions. No evidence for aortic dissection, aortic aneurysm, or pulmonary embolism. Colonic diverticulosis without acute diverticulitis. Hepatic steatosis. Cholecystectomy. Small nonobstructing bilateral renal calculi. Small left renal cyst. Individualized dose optimization techniques were used for this CT. at 1426 Reported and signed by: Madelyn Sidhu MD Electronically Signed: Madelyn Sidhu MD at 14:25 EDT Reading Location ID and State: [address] [place] [address] Tel , Service support , Physical Exam Const alert, oriented x3 and no apparent distress General Appearance: cooperative HEENT hearing grossly normal bilaterally Head and Scalp: atraumatic Eyes EOMs intact bilaterally Neck General: normal visual inspection Chest inspection of chest normal and palpation of chest normal Resp normal respiratory effort Auscultation: clear to auscultation bilaterally Cardio regular rate, regular rhythm, S1 normal heart sound and S2 normal heart sound Jugular Venous Distention: JVD GI normal to inspection, nondistended, normoactive bowel sounds Extremity normal capillary refill and no pedal edema Peripheral Pulses: Yes pulses 2+ throughout and femoral pulses present Skin no rashes or lesions noted Neuro oriented x3 and CN's II-XII intact bilaterally Psych Appearance: grossly normal and appropriate Assessment & Plan Assessment/Plan (1) Atherosclerosis of coronary artery of [place] heart without angina pectoris: PLAN: He does have evidence of atherosclerotic cardiovascular disease. He recently underwent a cardiac catheterization in November of this year demonstrating no high-grade stenosis. He did have ostial first diagonal vessel stenosis as well as moderate circumflex stenosis. I would recommend continued current medical therapy. (2) Hypertriglyceridemia: PLAN: He will continue with aggressive risk factor modification. (3) Acute on chronic systolic heart failure: PLAN: Patient presented to the ER complaining of symptoms of shortness of breath and also he described heaviness in the chest This symptoms has been ongoing for the last 2 to 3 days walking for short distance in his house he developed shortness of breath There is no weight gain and there is no lower extremity swelling His echocardiogram demonstrates an ejection fraction of 30 to 35%. As you know he has not been enthused to get an implantable defibrillator. Cardiac care plan recommendation; 1. Noted he had cardiomegaly with evidence of congestive heart failure on the chest x-ray done in the ER Patient diuresed very well on Lasix 40 mg IV twice daily and will switch to p.o. Lasix 2. He had ischemic cardiomyopathy with a history of PCI and stent to the LAD and had a recent cardiac catheterization and decision was made to treat with medical therapy with dual antiplatelet aspirin Plavix 3. Added Aldactone 25 mg the current medication he had normal renal function We will continue to monitor and follow-up clinically
[2021-12-24] MEDS: Isosorbide Mononitrate 30 MG Tablet PO (08:43)
[2021-12-24] MEDS: Enoxaparin 40 MG/0.4 ML Syringe SC (08:43)
[2021-12-24] MEDS: Allopurinol 100 MG Tablet 200 MG PO (08:43)
[2021-12-24] MEDS: Spironolactone 25 MG Tablet PO (08:43)
[2021-12-24] MEDS: Aspirin E.C. 81 MG Tablet PO (08:44)
[2021-12-24] MEDS: Clopidogrel Bisulfate 75 MG Tablet PO (08:44)
[2021-12-24] MEDS: Losartan Potassium 25 MG Tablet PO (08:44)
[2021-12-24] MEDS: Acyclovir 200 MG Capsule 400 MG PO (08:44)
[2021-12-24] MEDS: Furosemide 40 MG Tablet PO (10:01)
[2021-12-24] MEDS: Carvedilol 25 MG Tablet PO (10:01)
--- NOTE | 2021-12-24 11:25 | CASEMGMT ---
RN CM SERVICE CONTROL OPERATOR CM to room to meet with patient for initial transition planning/care coordination assessment. RN BRANDON introduced self and role at [facility]. Pt voices understanding and consents to assessment at this time. Pt sitting on edge of bed, in no distress at this time. at bedside. Pt is A/O at this time and answers all questions appropriately. Care providers, pharmacy, and demographics verified/updated at this time. PCP: Dr Davila Specialists: Dr Platt--cardiology. Pt has appt scheduled for 01/23. Also has sleep study scheduled 01/23. Preferred Pharmacy: [facility] Insurance: [employer] [facility] Prescription Benefit: Yes Living Will/HPOA: Has both LW and HPOA, who is his , Kerry. LNOK: , Kerry Living Arrangements: Lives w/ in one-story home w/basement. 3 steps to enter home. Independent. and pt share home tasks. Transportation: Pt and both drive. DME: Denies using any DME and denies needs. HHC/SNF: No hx of either. No needs identified. Pt wishes to return home and states has no concerns with going home at time of discharge. Pt states does not smoke or drink ETOH. CM to follow for any discharge planning/needs. Pt voices no concerns/needs at this time. Advised pt to ask for CM if any further questions/concerns/needs arise. Voices understanding. PLAN: Home w/spousal support and discharge plans in place. Mina GALARZA RN, CM
--- NOTE | 2021-12-24 11:29 | PCM.DC.SUM ---
Providers Date of Admission: 12/23/21 Date of Discharge: 12/24/21 Primary Care Physician: Dr. Juan Davila, DO Consultations 12/23/21 15:44 Consult: Cardiology Routine Consulting Provider: Hortencia Tee Reason for Consult: acute on chronic heart failure EMERGENT Consult: No MD Notified: Yes Date Notified: 12/23/21 Time Notified: 15:40 Method of Notification: Text Reason For Visit: ACUTE HYPOXIC RESPIRATORY FAILURE Diagnosis Discharge Diagnosis (1) Atherosclerosis of coronary artery of [place] heart without angina pectoris: Status: Chronic Code(s): I25.10 - Atherosclerotic heart disease of [place] coronary artery without angina pectoris (2) Hypertriglyceridemia: Status: Chronic Code(s): E78.1 - Pure hyperglyceridemia (3) Acute on chronic systolic heart failure: Status: Chronic Code(s): I50.23 - Acute on chronic systolic (congestive) heart failure Medications at Discharge Home Medications acyclovir 400 mg PO BID 07/18/17 acetaminophen 650 mg PO Q6H PRN PRN tab 10/05/19 ascorbic acid (vitamin C) 1,000 mg tablet 1 g PO DAILY tab 10/14/19 tamsulosin 0.4 mg capsule 0.4 mg PO QHS 10/14/19 allopurinol 100 mg tablet 200 mg PO BID tab 02/24/20 clopidogrel 75 mg tablet 75 mg PO DAILY #90 tab 01/04/21 carvedilol 12.5 mg tablet 12.5 mg PO BID #180 tab 04/11/21 aspirin 81 mg tablet,delayed release 81 mg PO QDAY #90 tab 07/04/21 cholecalciferol (vitamin D3) 125 mcg (5,000 unit) capsule 125 mcg PO DAILY 07/04/21 imipramine HCl 25 mg tablet 50 mg PO QHS tab 12/17/21 losartan 25 mg tablet 25 mg PO DAILY #90 tab 12/17/21 atorvastatin 80 mg tablet 80 mg PO QHS #90 tab 12/20/21 furosemide 40 mg PO BIDLX #60 tab 12/24/21 spironolactone 25 mg PO DAILY #30 tab 12/24/21 Hospital Course Operations None Procedures None Summary of Care Provided Minutes Spent on Discharge: 38 Hospital Course: Mr. Arana is a 51-year-old male who presented to the emergency department at [facility] on 12/23/2021 with a chief complaint of chest pain. He indicated on presentation that the chest pain and shortness of breath had been going on several weeks prior to admission and was admitted approximately 2 weeks for similar symptoms. He had a chest CT that was negative at that time for PE. He also had a cardiac catheterization which showed no evidence of hemodynamically significant stenosis. He states the shortness of breath had become more of a problem for approximately a week to 2 prior to presentation to the emergency department. His Lasix had to be decreased prior to his last discharge due to hypotension and his Aldactone was discontinued secondary to gynecomastia and breast tenderness. Upon presentation he was started on BiPAP in the emergency department to help relieve his shortness of breath. His vital signs demonstrated that he was afebrile, intermittently tachycardic with heart rates anywhere from 97 205, normotensive and his oxygen saturation was 91% on room air. It did appear he improved to 95 to 96% on 2 L however he was still initiated on BiPAP to decrease his work of breathing as he was markedly tachypneic with respiratory rates anywhere from 24-35. His CBC was overall unremarkable. His BMP was overall unremarkable. Cardiac enzymes were cycled and were found to be 51-51-59. A BNP was obtained and found to be 198. Given his progressively worsening shortness of breath and relative hypoxia he was admitted to the hospital and started on IV Lasix. Cardiology was consulted as well. He diuresed extremely well with IV Lasix and was down approximately 3 L on the a.m. of 12/24/2021 which resulted in a 2 kg weight loss. His symptom resolved quicker than expected. Cardiology evaluated the patient on the a.m. of 12/24/2021 and converted his IV Lasix to p.o. 40 mg p.o. twice daily and continue the Aldactone 25 mg it was added the day previously. A CTA of his chest abdomen pelvis was performed prior to admission and he was found to have bilateral groundglass opacities which was felt most likely related to his decompensated heart failure as well as bilateral pleural effusions. His auscultation did improve prior to discharge with improving aeration at the bases. I would recommend an outpatient follow-up chest x-ray/CT of his chest to further evaluate for pulmonary effusions if his shortness of breath returns however it had improved significantly prior to discharge and I suspect we were able to diurese the fluid off. At this point it was felt he was stable to be discharged home. He was discharged home on a cardiac diet with fluid restriction as well as sodium restriction. An echocardiogram was not repeated as he had one at the end of November that showed an EF of 30 to 35%. He has not yet decided whether or not to get an implantable defibrillator given his poor EF. He was discharged home in stable condition on 12/24/2021. He is to follow-up with his primary care physician within the next 2 weeks. He already has follow-up with cardiology on 01/23/2022. He is also scheduled for a pulmonary evaluation to obtain a nocturnal polysomnography to rule out sleep apnea. This appointment is scheduled as well on 01/23/2022. Discharge diagnoses: Acute hypoxic respiratory failure secondary to decompensated systolic/diastolic heart failure Bilateral pleural effusions Pulmonary edema Paroxysmal atrial fibrillation Ischemic cardiomyopathy CAD Hypertension Hyperlipidemia History of gout BPH History of AML Suspected [place] Obesity History of PE/DVT History of LV thrombus Physical Exam Narrative Patient states he is feeling much better. He is diuresed approximately 3 L since arrival and is down 2 kg. He states his breathing is significantly improved and is asking if he can go home today. Const alert, oriented x3, no apparent distress, no limitations, healthy appearing and well nourished Constitutional Narrative: Obese white male sitting up on the edge of bed, appears comfortable and nontoxic, no dyspnea General Appearance: cooperative, comfortable, well kempt and well developed Orientation / Consciousness: awake Exam Limitations: no limitations Nutritional Appearance: obese HEENT normocephalic and head/scalp atraumatic HEENT Narrative: Mallampati 3, no thrush Eyes PERRL, EOMs intact bilaterally and conjunctivae normal Eyes Narrative: No scleral icterus Neck no lymphadenopathy, supple and no JVD Neck Narrative: Trachea midline, no thyroid enlargement Resp normal respiratory effort, no retractions and no use of accessory muscles Resp Narrative: Few crackles at bilateral bases but otherwise clear Auscultation: crackles and rales; Negative for rhonchi or wheezes Cardio regular rate, regular rhythm, S1 normal heart sound, S2 normal heart sound, no murmurs, no rub, no gallops, no clicks and no JVD GI normal to inspection, nondistended, normoactive bowel sounds, soft to palpation, non-tender and non-distended GI Narrative: Abdomen is mildly protuberant Extremity no clubbing, cyanosis or edema Skin no rashes or lesions noted, no wounds, skin turgor normal and no jaundice Skin Narrative: Multiple tattoos Neuro oriented x3, moves all extremities and no focal motor deficits Sensorium / Orientation: awake and alert Speech: speech normal Motor Exam: strength 5/5 throughout Psych affect normal Psych Narrative: Very pleasant and appropriately interactive Weight / BMI Weight Weight: 125.2 kg Body Mass Index (BMI) 37.0 ABG / Lab / Microbiology Data Result Diagrams: 12/23/21 13:05 12/23/21 13:05 Laboratory: Laboratory Results - last 24 hr 12/23/21 13:05: WBC 12.1 H, RBC 4.90, Hgb 16.0, Hct 46.4, MCV 94.7 H, MCH 32.7 H, MCHC 34.5, RDW Std Deviation 47.8 H, RDW Coeff of Yunior 14.1, Plt Count 279, MPV 10.1, Immature Gran % (Auto) 0.300, Neut % (Auto) 64.6, Lymph % (Auto) 22.3, [place] % (Auto) 9.8, Eos % (Auto) 2.3, Baso % (Auto) 0.7, Absolute Neuts (auto) 7.8 H, Absolute Lymphs (auto) 2.70, Nucleated RBC % 0 12/23/21 13:05: Sodium 139, Potassium 4.5, Chloride 111 H, Carbon Dioxide 24.0, Anion Gap 4 L, BUN 22 H, Creatinine 1.20, Estim Creat Clear Calc 80.45, Est GFR (MDRD) Af Amer 81, Est GFR (MDRD) Non-Af 67, BUN/Creatinine Ratio 18.3, Glucose 98, Calcium 9.8 12/23/21 13:05: Troponin I High Sens 51 12/23/21 13:05: Magnesium 1.8 12/23/21 13:05: B-Natriuretic Peptide 198.0 H 12/23/21 14:38: COVID-19 (CRISTI) Not Detected 12/23/21 16:10: Troponin I High Sens 51 12/23/21 19:35: Troponin I High Sens 59 Microbiology: Microbiology 12/24/21 Unknown Nasal Secretion SARS-CoV-2 Antigen (Rapid) - Final Radiography Diagnostic Testing: Radiology Impression Chest X-Ray 12/23/21 13:11 IMPRESSION: Interstitial opacities concerning for pulmonary edema. at 1416 Reported and signed by: Madelyn Sidhu MD Electronically Signed: Madelyn Sidhu MD at 14:15 EDT Reading Location ID and State: [facility] / [place] Tel , Service support , Chest/Abdomen/Pelvis CTA 12/23/21 13:11 IMPRESSION: Mild pulmonary edema with mild-moderate bilateral pleural effusions. No evidence for aortic dissection, aortic aneurysm, or pulmonary embolism. Colonic diverticulosis without acute diverticulitis. Hepatic steatosis. Cholecystectomy. Small nonobstructing bilateral renal calculi. Small left renal cyst. Individualized dose optimization techniques were used for this CT. at 1426 Reported and signed by: Madelyn Sidhu MD Electronically Signed: Madelyn Sidhu MD at 14:25 EDT Reading Location ID and State: [address] [place] [address] Tel , Service support , D/C Instructions Discharge Diet: Low fat / Low cholesterol, 8 Cup Fluid Restriction and 2000 mg Sodium Diet Discharge Activity: Return to Normal Activity Return to work on: 12/25/21 Meaningful Use Info Meaningful Use Diagnoses (Choose all that apply): CHF CHF AGNES/ARB ordered at discharge?: Yes Documented LVEF (%): 35 Discharge Plan Admission Admit Date/Time: 12/23/21 15:04 Primary Reason for Your Visit: Shortness of Breath Attending Provider: Huyen Schofield Primary Care Provider: Juan Davila Consulting Providers: Hortencia Tee Discharge Orders/Prescriptions Prescriptions: New furosemide 40 mg Tablet 40 mg PO BIDLX Qty: 60 RF: 0 spironolactone 25 mg Tablet 25 mg PO DAILY Qty: 30 RF: 0 Continued ascorbic acid (vitamin C) 1,000 mg tablet 1 g PO DAILY RF: 0 tamsulosin [Flomax] 0.4 mg capsule 0.4 mg PO QHS RF: 0 allopurinol 100 mg tablet 200 mg PO BID RF: 0 cholecalciferol (vitamin D3) 125 mcg (5,000 unit) capsule 125 mcg PO DAILY RF: 0 aspirin [Adult Low Dose Aspirin] 81 mg tablet,delayed release (DR/EC) 81 mg PO QDAY Qty: 90 RF: 3 imipramine HCl 25 mg tablet 50 mg PO QHS RF: 0 losartan 25 mg tablet 25 mg PO DAILY Qty: 90 RF: 3 acyclovir 400 MG tablet 400 mg PO BID RF: 0 acetaminophen 325 MG tablet 650 mg PO Q6H PRN PRN (Reason: Pain Score 1-3/Temp > 100.7 F) RF: 0 clopidogrel [Plavix] 75 mg tablet 75 mg PO DAILY Qty: 90 RF: 3 carvedilol 12.5 mg tablet 12.5 mg PO BID Qty: 180 RF: 3 atorvastatin 80 mg tablet 80 mg PO QHS Qty: 90 RF: 3 Discontinued furosemide 40 mg tablet 40 mg PO DAILY Qty: 180 RF: 3 Referrals / Follow Up: Juan Davila DO [Primary Care Provider] - In 1 Week Amado Platt MD [STAFF PHYSICIAN] - See Referral Note (As scheduled for 01/23/2022) Vin Gonzalez DO [STAFF PHYSICIAN] - See Referral Note (As scheduled for 01/23/2022) Disposition Disposition (needs filled in before D/C Order can be placed): Home, Self Care Charges/Coding Visit Charges Inpatient E&M: 36131 Disch Hosp
--- NOTE | 2021-12-24 13:19 | CASEMGMT ---
Per Frank NIX, pt does not qualify for home oxygen at discharge. Jareth NIX CM
== END 2021-12-24 13:22 | disposition home or self-care (01) | DRG 291 ==
LOC: ED 14:53 → PCU 15:16
PROVIDERS: Admitting Provider Student in an Organized Health Care Education/Training Program; Emergency Provider Student in an Organized Health Care Education/Training Program; PCP Family Medicine; Visit Provider Internal Medicine
DX: I11.0 Hypertensive heart disease with heart failure (principal); J96.01 Acute respiratory failure with hypoxia; I50.43 Acute on chronic combined systolic (congestive) and diastolic (congestive) heart failure; I48.0 Paroxysmal atrial fibrillation; I25.10 Atherosclerotic heart disease of native coronary artery without angina pectoris; M10.9 Gout, unspecified; E78.5 Hyperlipidemia, unspecified; I25.5 Ischemic cardiomyopathy; G47.33 Obstructive sleep apnea (adult) (pediatric); N40.0 Benign prostatic hyperplasia without lower urinary tract symptoms; E78.1 Pure hyperglyceridemia; I25.2 Old myocardial infarction; N28.1 Cyst of kidney, acquired; N62 Hypertrophy of breast; E66.9 Obesity, unspecified; Z68.36 Body mass index [BMI] 36.0-36.9, adult; Z79.02 Long term (current) use of antithrombotics/antiplatelets; Z79.82 Long term (current) use of aspirin; Z79.899 Other long term (current) drug therapy; Z86.711 Personal history of pulmonary embolism; Z86.718 Personal history of other venous thrombosis and embolism; Z85.6 Personal history of leukemia
CPT/HCPCS: 36415; 71045; 71275; 74174; 80048; 83735; 83880; 84484; 85025; 87426; 87635; 93005; 94002; 94640; 94762; 99285; Q9967; A4216; J1940; U0003; U0005

== ENCOUNTER 2022-01-01 06:18 | Inpatient (IN) | payer MEDICARE, SELFPAY ==
[2020-01-14 10:20] VITALS: BMI 37.5
[2022-01-01] VITALS (19 sets, daily range): BP systolic 91–143; BP diastolic 73–90; PULSE 91–113; RESP 12–30; TEMP 36.4–36.6; O2SAT 86–99; BMI 37.0; BMI 36.3
--- NOTE | 2022-01-01 06:24 | RAD_ITS ---
EXAM: XR CHEST, 1 VIEW CLINICAL INDICATION: chest pain TECHNIQUE: Frontal view of the chest. This report was created using [employer] report generation technology. COMPARISON: 12/23/2021. FINDINGS: LUNGS AND PLEURAL SPACES: Prominent bilateral interstitial opacities. Patchy opacities in the bases. Findings are similar to the prior exam. Low lung volumes somewhat limit the exam. No pneumothorax. No effusion. HEART: Heart size upper normal. MEDIASTINUM: Central airways and mediastinal contour are unremarkable. BONES/JOINTS: Unremarkable. SOFT TISSUES: Unremarkable. VASCULATURE: Vascular congestion. RAD/Chest 1 View (Portable) IMPRESSION: Interstitial and bibasilar patchy opacities likely edema. Underlying pneumonia cannot be excluded. Findings are similar to the prior exam. Electronically Signed: Gigi Solano MD at 7:18 EDT ,
--- NOTE | 2022-01-01 06:24 | EKG12_ITS ---
Test Reason : CP Blood Pressure : / mmHG Vent. Rate : 104 BPM Atrial Rate : 104 BPM P-R Int : 174 ms QRS Dur : 120 ms QT Int : 362 ms P-R-T Axes : 045 -60 102 degrees QTc Int : 476 ms Sinus tachycardia Left axis deviation Left bundle branch block Anteroseptal infarct , age undetermined , cannot be excluded T wave abnormality, consider lateral ischemia Abnormal ECG Confirmed by ARSH AC, EMILY ([id number]), sports editor FLACO BELL ([id number]) on 01/02/2022 8:44:15 AM Referred By: Confirmed By:EMILY CABAN MD
--- NOTE | 2022-01-01 06:33 | EDS_ITS ---
HPI History of Present Illness Chief Complaint: Shortness of Breath Informant: patient Onset/Context/Timing Onset: Days Context: gradual Timing: Continuous Quality: Positive for Dyspnea on exertion and Orthopnea Current Severity: Mild Maximum Severity: Moderate Worsened by: Exertion and Lying flat Relieved by: Nothing Associated Symptoms cough; Negative for fever, sore throat, subjective, chills or sweats Chest Pain: Positive for None Narrative Narrative: 51-year-old male with extensive past medical history of CAD, CHF, p rior [place]. History of A. fib and recent admissions x2 for CHF. Cardiac stent on Plavix. No other blood thinners. He is not on home oxygen. He has an ejection fraction of 30 to 35%. And a history of diastolic dysfunction with pleural effusions. States has been short of breath again for the last 3 days worse lying supine or with exertion. Really denies any chest pain. Only mild dry cough. No fever or chills. No hemoptysis. No leg swelling. No calf pain. Patient had cardiac catheterization about 2 weeks ago which he states was unchanged with no new blockage. PE Risk Factors: Positive for Prior DVT or PE and Recent immobilization; Negative for Cancer, OCP + Smoking + > 35, Recent surgery and Recent travel Prior similar symptoms: Yes Recent [facility] Medical History Atherosclerosis of coronary artery of [place] heart without angina pectoris BMI 39.0-39.9,adult Gout History of DVT of lower extremity History of pulmonary embolus (PE) History of ST elevation myocardial infarction (STEMI) (10/03/19) Hypertriglyceridemia Ischemic cardiomyopathy LV (left ventricular) mural thrombus following [place] Myeloid leukemia Obesity 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) Paroxysmal atrial fibrillation Pleural effusion Home Medications acyclovir 400 mg PO BID 07/18/17 [History Last Taken Unknown] ascorbic acid (vitamin C) 1,000 mg tablet 1 g PO DAILY tab 10/14/19 [History Last Taken Unknown] tamsulosin 0.4 mg capsule 0.4 mg PO QHS 10/14/19 [History Last Taken Unknown] allopurinol 100 mg tablet 200 mg PO BID tab 02/24/20 [History Last Taken Unknown] clopidogrel 75 mg tablet 75 mg PO DAILY #90 tab 01/04/21 [Rx Last Taken Unknown] carvedilol 12.5 mg tablet 12.5 mg PO BID #180 tab 04/11/21 [Rx Last Taken Unknown] aspirin 81 mg tablet,delayed release 81 mg PO QDAY #90 tab 07/04/21 [Rx Last Taken Unknown] cholecalciferol (vitamin D3) 125 mcg (5,000 unit) capsule 125 mcg PO DAILY 07/04/21 [History Last Taken Unknown] imipramine HCl 25 mg tablet 50 mg PO QHS tab 12/17/21 [History Last Taken Unknown] losartan 25 mg tablet 25 mg PO DAILY #90 tab 12/17/21 [Rx Last Taken Unknown] atorvastatin 80 mg tablet 80 mg PO QHS #90 tab 12/20/21 [Rx Last Taken Unknown] furosemide 40 mg PO BIDLX #60 tab 12/24/21 [Rx Last Taken Unknown] spironolactone 25 mg PO DAILY #30 tab 12/24/21 [Rx Last Taken Unknown] Allergy/AdvReac Type Severity Reaction Status Date / Time lorazepam [From Ativan] AdvReac HALLUCINATI Verified 01/01/22 06:21 ONS ondansetron AdvReac SEVERE Verified 01/01/22 06:21 [From Zofran (as HEADACHE hydrochloride)] Family History Father Diabetes Heart disease Myocardial infarction Heart disease Mother Cancer Hypertension Brother Myocardial infarction Heart disease Surgical History History of cholecystectomy History of coronary artery stent placement (10/03/19) History of kidney surgery History of left heart catheterization (12/10/21) History of total right hip arthroplasty Social History Smoking Status: Never smoker alcohol intake: never substance use type: does not use what type of physical activity do you participate in: none ROS ROS ED ROS Narrative Shortness of breath. Review of Systems ROS Unobtainable: Denies due to encephalopathy Constitutional Constitutional ED: Denies chills, fever(s) or sweats Eyes Eyes: Denies change in vision ENT ENT ED: Denies ear pain Cardiovascular Cardiovascular: Denies chest pain Respiratory/Chest Respiratory/Chest: Reports cough and dyspnea Gastrointestinal Gastrointestinal: Denies abdominal pain, diarrhea, nausea or vomiting Genitourinary Genitourinary ED: Denies dysuria Musculoskeletal Musculoskeletal: Denies myalgias Integumentary Denies rash Neurologic Neurologic: Denies headache(s) Psychiatric Psychiatric: Denies depression Endocrine Endocrinology: Denies polyuria Hematologic/Lymphatic Hematologic/Lymphatic: Denies easy bruising Allergic/Immunologic Allergic/Immunologic ED: Denies urticaria EXAM Physical Exam Narrative Exam Narrative: 51-year-old male short of breath. On initial presentation he was hypoxic with a pulse ox of 86% on room air. On 2 L he is 95 to 97%. H EENT exam unremarkable. Neck nontender no JVD. Lungs diminished breath sounds in both bases. I do not appreciate any rales, rhonchi or wheezing at this time. Heart tachycardic rate about 110. No murmur appreciated. Abdomen soft nontender. Patient moving all 4 extremities. Calves are nontender without edema or cords. Neurologically is awake and alert with no focal motor deficits. Const Vital Signs: 01/01/22 06:18 01/01/22 06:23 01/01/22 06:24 Temperature 97.8 F Temperature Source Temporal Pulse Rate 113 H Respiratory Rate 26 H Respiratory Effort Respiratory Depth Respiratory Pattern Blood Pressure 118/86 H Blood Pressure Mean 96 Pulse Ox 86 97 95 Oxygen Delivery Method Room Air Nasal Cannula Nasal Cannula Oxygen Flow Rate (L/min) 2 2 01/01/22 06:27 01/01/22 06:32 01/01/22 07:14 Temperature Temperature Source Pulse Rate 104 H 98 Respiratory Rate 24 H 30 H Respiratory Effort Labored Accessory Muscle Use Respiratory Depth Deep Respiratory Pattern Tachypnea Blood Pressure 105/75 93/77 Blood Pressure Mean 85 82 Pulse Ox 95 94 Oxygen Delivery Method Nasal Cannula Nasal Cannula Nasal Cannula Oxygen Flow Rate (L/min) 2 2 2 Positive well nourished, well developed and obese; Negative for cachectic, contractures or unkempt General Appearance ED: well developed; Negative for unkempt, cachectic, contractures, NAD or pallor Nutritional Appearance: obese; Negative for cachectic HEENT Reports moist mucous membranes atraumatic; Negative for trauma or tenderness Eyes PERRL and EOMs intact bilaterally General Eye ED: Negative for pale conjunctiva or scleral icterus Neck no lymphadenopathy, supple, no meningeal signs and no JVD General: Negative for tenderness Resp No normal respiratory effort and clear to auscultation bilaterally Effort and Inspection: Negative for pain with movement Auscultation: diminished lung sounds; Negative for rales, rhonchi or wheezes Cardio regular rhythm, S1 normal heart sound, S2 normal heart sound and no murmurs; Negative for regular rate GI non-tender, non-distended and no masses Auscultation: normoactive bowel sounds; Negative for hyperactive bowel sounds or hypoactive bowel sounds Palpation: soft; Negative for tender, guarding or rebound tenderness present Back/Spine no CVA tenderness and normal to inspection General Back: Negative for CVA tenderness or tenderness Extremity normal to inspection Extremity Narrative: Calves are nontender without edema. General Extremety ED: Negative for edema or tenderness General Extremity: Negative for edema Neuro oriented x3 Sensorium / Orientation: alert, oriented to person, oriented to place and oriented to time; Negative for orientation impaired, confused, lethargic or stuporous Motor Exam: strength 5/5 throughout Psych mental status grossly normal Appearance: Negative for unkempt Attitude: No agitated Mood & Affect: Negative for depressed or tearful Thought Process: normal thought process Skin no wounds General Skin Exam: Negative for jaundice or pallor Lesions: no lesions Rashes: no rashes MDM MDM MDM Narrative Medical decision making narrative: 51-year-old male with significant cardiac history with a history of CHF planing shortness of breath and hypoxic. Differential diagnosis includes CHF, pleural effusions, pneumonia but not clinically likely with his history and exam. Also pulmonary emboli is a consideration. Cardiac work-up with a BNP of be pursued. MRI spoken to one of the hospitalist patient be admitted to PCU. I have written for the patient receive 40 mg of IV Lasix. Lab Data Attestation: I reviewed the patient's lab results. Lab results narrative: CBC shows a white count of 12. H&H 14 and 45. Platelets 288. Chemistries show a gap of 7 BUN 28 creatinine 1.2 glucose 128. Patient requested a uric acid because he needed for his primary care physician it was 5.6. Troponin is 65. BNP is pending. Labs: Laboratory Results - last 24 hr 01/01/22 01/01/22 01/01/22 06:40 06:40 06:48 WBC 12.0 H RBC 4.54 L Hgb 14.9 Hct 45.0 MCV 99.1 H MCH 32.8 H MCHC 33.1 RDW Std Deviation 50.6 H RDW Coeff of Yunior 14.2 Plt Count 288 MPV 10.4 Immature Gran % (Auto) 0.300 Neut % (Auto) 57.9 Lymph % (Auto) 27.6 [place] % (Auto) 10.4 H Eos % (Auto) 3.2 Baso % (Auto) 0.6 Absolute Neuts (auto) 6.9 Absolute Lymphs (auto) 3.30 Nucleated RBC % 0 Sodium 139 Potassium 4.2 Chloride 107 Carbon Dioxide 25.0 Anion Gap 7 BUN 28 H Creatinine 1.23 Estim Creat Clear Calc 78.49 Est GFR (MDRD) Af Amer 79 Est GFR (MDRD) Non-Af 65 BUN/Creatinine Ratio 22.8 H Glucose 128 H Uric Acid 5.6 Calcium 9.0 Troponin I High Sens 65 Radiography Chest X-Ray - ED: 1 View, Read by ED Physician, Read by Radiologist and CHF Diagnostic Testing: Clinical Impression(s) from Imaging Studies Chest X-Ray 01/01/22 06:24 IMPRESSION: Interstitial and bibasilar patchy opacities likely edema. Underlying pneumonia cannot be excluded. Findings are similar to the prior exam. Electronically Signed: Gigi Solano MD at 7:18 EDT , Chest x-ray, portable, single view interpreted myself and the radiologist is consistent with bilateral pulmonary edema consistent with CHF. Similar to her prior chest x-ray. Rhythm Strip Rhythm Strip: Sinus Tach Rate: 104 Ectopy: None EKG Initial EKG: Attestation: I personally reviewed and interpreted this EKG as follows: Interpretation: No Acute Injury Pattern and Sinus Tachycardia Comments: Sinus tachycardia rate of 104 no acute signs of [place] or ischemia he has had an old anteroseptal [place]. Prior EKG tracings: available for review Prior: Unchanged Discharge Plan Dx/Rx/DC Orders Clinical Impression: Acute dyspnea, Hypoxia, Acute on chronic diastolic CHF (congestive heart failure) Disposition Disposition: Acute Care [facility]
[2022-01-01 06:59] LABS: Absolute Neutrophil Count 6.9 X10^3/uL (2.0-7.7); Basophil# 0.07 X10^3/uL; Basophil% 0.6 % (0-1); Eosinophil# 0.38 X10^3/uL; Eosinophils% 3.2 % (0-5); Hemoglobin 14.9 g/dL (13.0-16.5); Lymphocyte % 27.6 % (19-41); Mean Corp Hgb Conc 33.1 g/dL (32-36); Mean Corpuscular Hgb 32.8 pg (27.0-32.0); Mean Corpuscular Volume 99.1 fL (80-94); Mean Platelet Vol. 10.4 fl (6.2-12.0); Monocyte# 1.24 X10^3/uL; Monocyte% 10.4 % (0-10); NRBC Flagged by Analyzer 0 % (0-5); Neutrophil # 6.93 X10^3/uL (2.7-7.7); Neutrophil % 57.9 % (47-70); Platelet Count 288 K/mm3 (150-450); RBC Distribution Width CV 14.2 % (11.6-14.6); RBC Distribution Width SD 50.6 fl (35.1-43.9); Red Blood Count 4.54 M/mm3 (4.6-6.2)
[2022-01-01] MEDS: Furosemide 40 MG/4 ML Vial IV ×3 (07:15→22:22)
[2022-01-01 07:26] LABS: Anion Gap 7 (5-15); BUN 28 mg/dL (7-18); BUN/Creat Ratio 22.8 RATIO (10-20); Chloride 107 mmol/L (98-107); Creatinine, Serum 1.23 mg/dL (0.70-1.30); EST Glomerular Filtration Rate 65 mL/min (>60); Est Glom Filt Rate - Afr Amer 79 mL/min (>60); Estimated Creatinine Clearance 78.49 ml/min; Glucose 128 mg/dL (74-106); Potassium 4.2 mmol/L (3.5-5.1); Sodium Level 139 mmol/L (136-145); Troponin-I HS (w/2H Reflex) 65 pg/mL (3.0-78.0); Uric Acid 5.6 mg/dL (3.5-7.2)
--- NOTE | 2022-01-01 07:39 | PCM.HP.STD ---
[facility] - General General Date of Admission: 01/01/22 Date of Service: 01/01/22 Chief Complaint: Shortness of breath HPI Narrative WILLIAM COKER, is a 51 M who presents with shortness of breath. Patient significant past cardiac history including previous IN with subsequent ischemic cardiomyopathy with an ejection fraction of 30% based on an echo obtained on 07/30/2021. Patient was recently on admission from 12/23/2021 to 12/24/2021. His Lasix dose was apparently adjusted. Patient reports no significant improvement in symptoms since being discharged. Patient did notice increasing work of breathing with minimal activity. He also had difficulty laying flat. Presented to the emergency department as a result of worsening symptoms. Imaging studies obtained on admission demonstrated interstitial and basilar patchy infiltrates consistent with edema and underlying pneumonia could not be ruled out. Patient was also found to have elevated WBC count. Denied any contact with anyone with recent COVID. A presumptive diagnosis of acute on chronic congestive heart failure with reduced ejection fraction made admitted to a monitored bed for further management [facility] Medical History (Updated 01/01/22 @ 10:[address] Guillermo Mike MD) Acute on chronic systolic (congestive) heart failure Atherosclerosis of coronary artery of bois forte heart without angina pectoris BMI 39.0-39.9,adult Gout History of DVT of lower extremity History of pulmonary embolus (PE) History of ST elevation myocardial infarction (STEMI) (10/03/19) Hypertriglyceridemia Ischemic cardiomyopathy LV (left ventricular) mural thrombus following IN Myeloid leukemia Obesity 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) Paroxysmal atrial fibrillation Pleural effusion Home Medications acyclovir 400 mg PO BID 07/18/17 [History Last Taken Unknown] ascorbic acid (vitamin C) 1,000 mg tablet 1 g PO DAILY tab 10/14/19 [History Last Taken Unknown] tamsulosin 0.4 mg capsule 0.4 mg PO QHS 10/14/19 [History Last Taken Unknown] allopurinol 100 mg tablet 200 mg PO BID tab 02/24/20 [History Last Taken Unknown] clopidogrel 75 mg tablet 75 mg PO DAILY #90 tab 01/04/21 [Rx Last Taken Unknown] carvedilol 12.5 mg tablet 12.5 mg PO BID #180 tab 04/11/21 [Rx Last Taken Unknown] aspirin 81 mg tablet,delayed release 81 mg PO QDAY #90 tab 07/04/21 [Rx Last Taken Unknown] cholecalciferol (vitamin D3) 125 mcg (5,000 unit) capsule 125 mcg PO DAILY 07/04/21 [History Last Taken Unknown] imipramine HCl 25 mg tablet 50 mg PO QHS tab 12/17/21 [History Last Taken Unknown] losartan 25 mg tablet 25 mg PO DAILY #90 tab 12/17/21 [Rx Last Taken Unknown] atorvastatin 80 mg tablet 80 mg PO QHS #90 tab 12/20/21 [Rx Last Taken Unknown] furosemide 40 mg PO BIDLX #60 tab 12/24/21 [Rx Last Taken Unknown] spironolactone 25 mg PO DAILY #30 tab 12/24/21 [Rx Last Taken Unknown] Allergy/AdvReac Type Severity Reaction Status Date / Time lorazepam [From Ativan] AdvReac HALLUCINATI Verified 01/01/22 06:21 ONS ondansetron AdvReac SEVERE Verified 01/01/22 06:21 [From Zofran (as HEADACHE hydrochloride)] Family History Father Diabetes Heart disease Myocardial infarction Heart disease Mother Cancer Hypertension Brother Myocardial infarction Heart disease Surgical History History of cholecystectomy History of coronary artery stent placement (10/03/19) History of kidney surgery History of left heart catheterization (12/10/21) History of total right hip arthroplasty Social History Smoking Status: Never smoker alcohol intake: never substance use type: does not use what type of physical activity do you participate in: none ROS ROS Narrative GENERAL: denies fever, chills, night sweats, weight loss, HEENT: denies headache, sinus congestion, or drainage, RESPIRATORY: shortness of breath, dyspnea on exertion CARDIAC: orthopnea, PND GASTROINTESTINAL: denies abdominal pain, nausea, GENITOURINARY: denies dysuria, urgency, frequency, EXTREMITY: denies swelling MUSCULOSKELETAL: denies current joint pain or tenderness NEUROLOGIC: denies focal numbness, weakness, tingling HEMATOLOGIC: denies easy bruising and/or hemorrhage INTEGUMENT: denies rashes PSYCHIATRIC: denies suicidal or homicidal ideation Vital Signs Vital Signs Vital Signs: 01/01/22 06:18 01/01/22 06:23 01/01/22 06:24 Temperature 97.8 F Temperature Source Temporal Pulse Rate 113 H Respiratory Rate 26 H Respiratory Effort Respiratory Depth Respiratory Pattern Blood Pressure 118/86 H Blood Pressure Mean 96 Pulse Ox 86 97 95 Oxygen Delivery Method Room Air Nasal Cannula Nasal Cannula Oxygen Flow Rate (L/min) 2 2 01/01/22 06:27 01/01/22 06:32 01/01/22 07:14 Temperature Temperature Source Pulse Rate 104 H 98 Respiratory Rate 24 H 30 H Respiratory Effort Labored Accessory Muscle Use Respiratory Depth Deep Respiratory Pattern Tachypnea Blood Pressure 105/75 93/77 Blood Pressure Mean 85 82 Pulse Ox 95 94 Oxygen Delivery Method Nasal Cannula Nasal Cannula Nasal Cannula Oxygen Flow Rate (L/min) 2 2 2 Weight Weight: 127.6 kg Body Mass Index (BMI) 37.0 Physical Exam Narrative GENERAL: cooperative but dyspneic at rest HEENT: Atraumatic; EYES; Anicteric, Normal Conjunctiva NECK; supple, normal thyroid, RESPIRATORY: Diminished to auscultation, with bibasilar Rales CARDIOVASCULAR: Regular S1 S2, GI: soft, normoactive bowel sounds, : No Renal angle tenderness; EXTREMITIES: No edema, no clubbing, MUSCULOSKELETAL: no muscle wasting NEURO: Awake; no lateralizing signs. SKIN: No Rash PSYCH; Flat affect Results Lab / Micro Data Result Diagrams: 01/01/22 06:48 01/01/22 06:40 Labs: Laboratory Results - last 24 hr 01/01/22 06:40: Sodium 139, Potassium 4.2, Chloride 107, Carbon Dioxide 25.0, Anion Gap 7, BUN 28 H, Creatinine 1.23, Estim Creat Clear Calc 78.49, Est GFR (MDRD) Af Amer 79, Est GFR (MDRD) Non-Af 65, BUN/Creatinine Ratio 22.8 H, Glucose 128 H, Uric Acid 5.6, Calcium 9.0 01/01/22 06:40: Troponin I High Sens 65 01/01/22 06:48: WBC 12.0 H, RBC 4.54 L, Hgb 14.9, Hct 45.0, MCV 99.1 H, MCH 32.8 H, MCHC 33.1, RDW Std Deviation 50.6 H, RDW Coeff of Yunior 14.2, Plt Count 288, MPV 10.4, Immature Gran % (Auto) 0.300, Neut % (Auto) 57.9, Lymph % (Auto) 27.6, [place] % (Auto) 10.4 H, Eos % (Auto) 3.2, Baso % (Auto) 0.6, Absolute Neuts (auto) 6.9, Absolute Lymphs (auto) 3.30, Nucleated RBC % 0 Rhythm Strip Rhythm Strip: Sinus Tach Rate: 104 Ectopy: None Radiology Impression Chest X-Ray 01/01/22 06:24 IMPRESSION: Interstitial and bibasilar patchy opacities likely edema. Underlying pneumonia cannot be excluded. Findings are similar to the prior exam. Electronically Signed: Gigi Solano MD at 7:18 EDT , Assessment & Plan Assessment/Plan (1) Acute dyspnea: (2) Hypoxia: (3) Acute on chronic systolic (congestive) heart failure: PLAN: Patient is a 51-year-old gentleman with history of ischemic cardiomyopathy presented with progressive shortness of breath 1. Acute on chronic congestive heart failure with reduced ejection fraction ? Patient has had recurrent admissions. Admitted to monitored bed started on strict input and output, daily weight, fluid restriction as well as use of IV Lasix. Consult was placed to CHF Acacian team to prevent patient frequent readmissions. Patient last echo on file was on 07/30/2021 which demonstrated EF of 30%. Patient is already on AGNES inhibitor's beta-blockers as well as Aldactone at home did continue 2. Coronary artery disease ? With previous acute IN on October 03, 2021. He was noted to have 100% occlusion in his LAD underwent PCI with HALLEY. Patient is on recommended medications including beta-blockers AGNES inhibitors statin therapy and antiplatelet therapy 3. Ischemic cardiomyopathy ? Patient is on recommended medications including losartan as well as beta-blockers. 4. Hypertension - Blood pressure controlled, home medications continued with dose adjustment as needed 5. Dyslipidemia -Patient is on statin therapy, continued at home dose 6. BPH ? Patient is on tamsulosin did continue 7. Suspected sleep apnea ? Patient is scheduled to undergo sleep study on 01/23/2022. Plan is to use BiPAP at bedtime 8. Class II obesity with BMI of 36.4 ? Weight loss advised 9. History of acute myeloid leukemia ? Currently in remission 10. Paroxysmal A. fib ? Rate controlled on carvedilol patient is not on systemic anticoagulant reason unclear 11. DVT prophylaxis - On enoxaparin CODE STATUS; full code Charges/Coding Visit Charges Inpatient E&M: 96870 Init Hosp L3
[2022-01-01 08:31] LABS: BNP,B-Type NATRIURETIC PEPTIDE 162.3 pg/mL (0-100)
[2022-01-01 08:55] LABS: Reflex Troponin-HS? (from REC) Y
[2022-01-01 08:59] LABS: Troponin-I HS 69 pg/mL (3.0-78.0)
[2022-01-01] MEDS: Allopurinol 100 MG Tablet 200 MG PO ×3 (09:46→20:07)
[2022-01-01] MEDS: Losartan Potassium 25 MG Tablet PO (09:46)
[2022-01-01] MEDS: Enoxaparin 40 MG/0.4 ML Syringe SC (09:46)
[2022-01-01] MEDS: Spironolactone 25 MG Tablet PO (09:46)
[2022-01-01] MEDS: Ascorbic Acid 500 MG Tablet 1000 MG PO (09:46)
[2022-01-01] MEDS: Cholecalciferol (Vit D3) 125 MCG CAPSULE (5,000 UNITS) PO (09:47)
[2022-01-01] MEDS: Aspirin E.C. 81 MG Tablet PO (09:47)
[2022-01-01] MEDS: Carvedilol 12.5 MG Tablet PO ×2 (09:47→20:07)
[2022-01-01] MEDS: Clopidogrel Bisulfate 75 MG Tablet PO (09:47)
[2022-01-01] MEDS: Acyclovir 200 MG Capsule 400 MG PO ×2 (09:47→20:08)
--- NOTE | 2022-01-01 10:20 | CASEMGMT ---
BOYD TAYLOR assessment: Face to Face with patient for initial transition planning/care coordination assessment. BOYD TAYLOR introduced self and role at [facility], pt voices understanding and consents to assessment. Pt is sitting up in chair on room air with slight tachypnea. Pt is A/Ox4 and answers all questions appropriately. Pt's is at bedside during assessment. Care providers, pharmacy, and demographics verified. Presentation: Pt c/o SOB x2 days-same episodes over last month Admitting dx: CHF PCP: Lola Specialists: yulissa Gonzalez(has appt 01/23/22); shirley Platt Preferred [facility]acy: [facility] Prescription Benefit: HumR Living Will/HPOA: Pt states has LW/HPOA and is aware that they are on not file at [facility]. Pt states his , Kerry Arana, is HPOA. LNOK: Kerry Arana, /HPOA Living Arrangements: Pt lives with in 1 story home with laundry in basement and states no concerns at home. Pt is independent with ADL's. Transportation: Pt drives self and states no transportation concerns. DME/HHC: Pt has no current DME or need for any further DME. Pt states no hx of HHC or SNF in the past. Pt states no concerns with going home at time of discharge. Pt is on disability. Pt does not smoke cigarettes and drinks ETOH occasionally. Pt states no further concerns/needs. CM to follow for any further discharge planning/needs. Advised pt to ask for CM if any further questions/concerns/needs arise, voices understanding. Pt Goal: Home Plan: [place] BOYD TAYLOR
[2022-01-01 10:58] LABS: D-Dimer Quantitative (DVT/PE) 0.81 FEU/ug/m (0.27-0.49)
[2022-01-01] MEDS: Senna/Docusate Sodium 1 Tablet 2 TABLET PO (11:42)
[2022-01-01 13:37] LABS: Troponin-I HS 61 pg/mL (3.0-78.0)
[2022-01-01] MEDS: 0.9% Saline Lock 10 ML Syringe IV ×2 (14:09→22:23)
--- NOTE | 2022-01-01 15:21 | CASEMGMT ---
Message left with Jennie in sleep lab regarding possible sleep study on 01/23/[address] Gonzalez's office about getting pt into sooner appt. CM to follow. Jareth NIX CM
--- NOTE | 2022-01-01 16:04 | CT_ITS ---
INDICATION: Elevated D-dimer EXAMINATION: CTA Chest WO/W Contrast Injection TECHNIQUE: Helically acquired images were obtained of the chest following administration of IV contrast. A radiation dose optimization technique was used for this scan. 3D postprocessing images including MIPS were reviewed. IV Contrast dosage and agent: IV 100mL [id number] COMPARISON: 12/23/2021. FINDINGS: Lungs: Bibasilar atelectasis. Mild interlobular septal thickening. Mediastinum: The heart is mildly enlarged. Stable prominent mediastinal and right hilar nodes. Mild aortic arch and coronary artery calcifications. No obvious filling defect seen within the visualized pulmonary arteries. Pleura: Moderate bilateral pleural effusions. Bones/Soft tissues: Mild scattered degenerative changes of the visualized spine. Upper abdomen: Hepatic steatosis. CT/CTA Chest W/WO Contrast IMPRESSION: No acute abnormalities in the chest. Specifically, no evidence of acute pulmonary emboli to the segmental level. Stable appearance of moderate bilateral pleural effusions. Otherwise no change when compared to most recent prior on 12/23/2021. Electronically Signed: Jaquan Lehman MD at 17:19 EDT ,
[2022-01-01] MEDS: Imipramine HCl 25 MG Tablet 50 MG PO (20:07)
[2022-01-01] MEDS: Atorvastatin Calcium 80 MG Tablet PO (20:07)
[2022-01-01] MEDS: Tamsulosin HCl 0.4 MG Capsule PO (20:08)
--- NOTE | 2022-01-01 22:59 | NURSING ---
Pt agreed to put bipap on, and when repository came in she refused to put it on. Stating between 89 and 90 SPO2
--- NOTE | 2022-01-02 00:35 | NURSING ---
pt is wearing his Bipap.
[2022-01-02 03:00] VITALS: PULSE 96
[2022-01-02 03:06] VITALS: BP 82/57; PULSE 98; RESP 18; TEMP 36.8; O2SAT 94
[2022-01-02] MEDS: 0.9% Saline Lock 10 ML Syringe IV (05:34)
[2022-01-02] MEDS: Furosemide 40 MG/4 ML Vial IV (05:34)
[2022-01-02 06:01] LABS: Absolute Lymphocyte Count 2.66 X10^3/uL (0.83-4.51); Absolute Neutrophil Count 6.1 X10^3/uL (2.0-7.7); Basophil# 0.08 X10^3/uL; Basophil% 0.8 % (0-1); Eosinophil# 0.36 X10^3/uL; Eosinophils% 3.5 % (0-5); Hematocrit 41.2 % (40-54); Hemoglobin 13.7 g/dL (13.0-16.5); Lymphocyte # 2.66 X10^3/ul (0.83-4.51); Lymphocyte % 25.6 % (19-41); Mean Corp Hgb Conc 33.3 g/dL (32-36); Mean Corpuscular Hgb 32.3 pg (27.0-32.0); Mean Corpuscular Volume 97.2 fL (80-94); Mean Platelet Vol. 10.5 fl (6.2-12.0); Monocyte# 1.12 X10^3/uL; Monocyte% 10.8 % (0-10); NRBC Flagged by Analyzer 0 % (0-5); Neutrophil # 6.14 X10^3/uL (2.7-7.7); Platelet Count 278 K/mm3 (150-450); RBC Distribution Width CV 14.2 % (11.6-14.6); Red Blood Count 4.24 M/mm3 (4.6-6.2); White Blood Count 10.4 K/mm3 (4.4-11.0)
[2022-01-02 06:43] LABS: Anion Gap 8 (5-15); BUN 27 mg/dL (7-18); BUN/Creat Ratio 23.3 RATIO (10-20); Calcium,Total 8.8 mg/dL (8.5-10.1); Chloride 106 mmol/L (98-107); Creatinine, Serum 1.16 mg/dL (0.70-1.30); EST Glomerular Filtration Rate 70 mL/min (>60); Est Glom Filt Rate - Afr Amer 85 mL/min (>60); Estimated Creatinine Clearance 83.23 ml/min; Glucose 123 mg/dL (74-106); Potassium 3.7 mmol/L (3.5-5.1); Sodium Level 140 mmol/L (136-145)
[2022-01-02 07:02] VITALS: PULSE 104
--- NOTE | 2022-01-02 07:37 | PN.HOSP_ITS ---
Subjective Subjective Patient admitted to monitored bed following his admission for acute congestive heart failure. Patient was placed on BiPAP during the night. Was also found to have elevated D-dimer CTA of the chest was negative for PE did demonstrate bilateral pleural effusion. Objective Data Objective Data Vital Signs: Vital Signs Temp Pulse Resp BP Pulse Ox 98.3 F 98 18 82/57 L 94 01/02/22 03:06 01/02/22 03:06 01/02/22 03:06 01/02/22 03:06 01/02/22 03:06 Oxygen Flow Rate (L/min) 2 Oxygen Delivery Method Room Air Weight: 125.4 kg Body Mass Index (BMI) 36.3 Intake & Output: Intake and Output for Last 24 Hours 12/31/21 01/01/22 01/02/22 23:59 23:59 23:59 Intake Total 600 / 600 Output Total 1950 / 1950 900 / 900 Balance -1350 / -1350 -900 / -900 Lab / Micro Data Result Diagrams: 01/02/22 05:40 01/02/22 05:40 Labs: Laboratory Results - last 24 hr 01/01/22 06:40: B-Natriuretic Peptide 162.3 H 01/01/22 07:40: COVID-19 (CRISTI) Not Detected 01/01/22 08:32: Troponin I High Sens 69 01/01/22 08:32: D-Dimer Quant (PE/DVT) 0.81 H* 01/01/22 12:58: Troponin I High Sens 61 01/02/22 05:40: WBC 10.4, RBC 4.24 L, Hgb 13.7, Hct 41.2, MCV 97.2 H, MCH 32.3 H , MCHC 33.3, RDW Std Deviation 50.0 H, RDW Coeff of Yunior 14.2, Plt Count 278, MPV 10.5, Immature Gran % (Auto) 0.300, Neut % (Auto) 59.0, Lymph % (Auto) 25.6, [place] % (Auto) 10.8 H, Eos % (Auto) 3.5, Baso % (Auto) 0.8, Absolute Neuts (auto) 6.1, Absolute Lymphs (auto) 2.66, Nucleated RBC % 0 01/02/22 05:40: Sodium 140, Potassium 3.7, Chloride 106, Carbon Dioxide 26.0, Anion Gap 8, BUN 27 H, Creatinine 1.16, Estim Creat Clear Calc 83.23, Est GFR (MDRD) Af Amer 85, Est GFR (MDRD) Non-Af 70, BUN/Creatinine Ratio 23.3 H, Glucose 123 H, Calcium 8.8 Radiography Diagnostic Testing: Radiology Impression Chest CTA 01/01/22 16:04 IMPRESSION: No acute abnormalities in the chest. Specifically, no evidence of acute pulmonary emboli to the segmental level. Stable appearance of moderate bilateral pleural effusions. Otherwise no change when compared to most recent prior on 12/23/2021. Electronically Signed: Jaquan Lehman MD at 17:19 EDT , Rhythm Strip Rhythm Strip: Sinus Tach Rate: 104 Ectopy: None Physical Exam Narrative GENERAL: cooperative but dyspneic at rest HEENT: Atraumatic; EYES; Anicteric, Normal Conjunctiva NECK; supple, normal thyroid, RESPIRATORY: Diminished to auscultation, with bibasilar Rales CARDIOVASCULAR: Regular S1 S2, GI: soft, normoactive bowel sounds, : No Renal angle tenderness; EXTREMITIES: No edema, no clubbing, MUSCULOSKELETAL: no muscle wasting NEURO: Awake; no lateralizing signs. SKIN: No Rash PSYCH; Flat affect Assessment & Plan Assessment/Plan (1) Acute dyspnea: (2) Hypoxia: (3) Acute on chronic systolic (congestive) heart failure: PLAN: Patient is a 51-year-old gentleman with history of ischemic cardiomyopathy presented with progressive shortness of breath 1. Acute on chronic congestive heart failure with reduced ejection fraction ? Patient has had recurrent admissions. Admitted to monitored bed started on strict input and output, daily weight, fluid restriction as well as use of IV Lasix. Consult was placed to CHF Acacian team to prevent patient frequent readmissions. Patient last echo on file was on 07/30/2021 which demonstrated EF of 30%. Patient is already on AGNES inhibitor's beta-blockers as well as Aldactone at home did continue ? 01/02/2022 patient remains in diuretics and is in negative fluid balance of 2.2 L following his admission. We will continue with current diuretic regimen and monitoring of electrolytes 2. Coronary artery disease ? With previous acute [place] on October 03, 2021. He was noted to have 100% occlusion in his LAD underwent PCI with HALLEY. Patient is on recommended medications including beta-blockers AGNES inhibitors statin therapy and antiplatelet therapy 3. Ischemic cardiomyopathy ? Patient is on recommended medications including losartan as well as beta- blockers. 4. Hypertension - Blood pressure controlled, home medications continued with dose adjustment as needed 5. Dyslipidemia -Patient is on statin therapy, continued at home dose 6. BPH ? Patient is on tamsulosin did continue 7. Suspected sleep apnea ? Patient is scheduled to undergo sleep study on 01/23/2022. Plan is to use BiPAP at bedtime ? 01/02/2022 patient tolerated BiPAP during the night 8. Class II obesity with BMI of 36.4 ? Weight loss advised 9. History of acute myeloid leukemia ? Currently in remission 10. Paroxysmal A. fib ? Rate controlled on carvedilol patient is not on systemic anticoagulant reason unclear 11. DVT prophylaxis - On enoxaparin CODE STATUS; full code Charges/Coding Visit Charges Inpatient E&M: 17584 Subs Hosp L2
[2022-01-02 09:00] VITALS: BP 103/74; PULSE 103; RESP 20; TEMP 36.6; O2SAT 97
[2022-01-02] MEDS: Enoxaparin 40 MG/0.4 ML Syringe SC (09:29)
[2022-01-02] MEDS: Losartan Potassium 25 MG Tablet PO (09:30)
[2022-01-02] MEDS: Aspirin E.C. 81 MG Tablet PO (09:30)
[2022-01-02] MEDS: Acyclovir 200 MG Capsule 400 MG PO (09:30)
[2022-01-02] MEDS: Ascorbic Acid 500 MG Tablet 1000 MG PO (09:30)
[2022-01-02] MEDS: Carvedilol 12.5 MG Tablet PO (09:30)
[2022-01-02] MEDS: Clopidogrel Bisulfate 75 MG Tablet PO (09:30)
[2022-01-02] MEDS: oxyCODONE 5 MG Tablet PO (09:30)
[2022-01-02] MEDS: Spironolactone 25 MG Tablet PO (09:31)
[2022-01-02] MEDS: Cholecalciferol (Vit D3) 125 MCG CAPSULE (5,000 UNITS) PO (09:31)
[2022-01-02 11:21] VITALS: O2SAT 96; O2SAT 98
--- NOTE | 2022-01-02 11:28 | PCM.DC.SUM ---
Providers Date of Admission: 01/01/22 Primary Care Physician: Dr. Juan Davila DO Reason For Visit: CHF Diagnosis Discharge Diagnosis (1) Acute dyspnea: Status: Acute Code(s): R06.00 - Dyspnea, unspecified (2) Hypoxia: Status: Acute Code(s): R09.02 - Hypoxemia (3) Acute on chronic systolic (congestive) heart failure: Status: Chronic Code(s): I50.23 - Acute on chronic systolic (congestive) heart failure Medications at Discharge Home Medications acyclovir 400 mg PO BID 07/18/17 ascorbic acid (vitamin C) 1,000 mg tablet 1 g PO DAILY tab 10/14/19 tamsulosin 0.4 mg capsule 0.4 mg PO QHS 10/14/19 allopurinol 100 mg tablet 200 mg PO BID tab 02/24/20 clopidogrel 75 mg tablet 75 mg PO DAILY #90 tab 01/04/21 carvedilol 12.5 mg tablet 12.5 mg PO BID #180 tab 04/11/21 aspirin 81 mg tablet,delayed release 81 mg PO QDAY #90 tab 07/04/21 cholecalciferol (vitamin D3) 125 mcg (5,000 unit) capsule 125 mcg PO DAILY 07/04/21 imipramine HCl 25 mg tablet 50 mg PO QHS tab 12/17/21 losartan 25 mg tablet 25 mg PO DAILY #90 tab 12/17/21 atorvastatin 80 mg tablet 80 mg PO QHS #90 tab 12/20/21 spironolactone 25 mg PO DAILY #30 tab 12/24/21 furosemide 80 mg PO BIDLX #60 tab 01/02/22 Hospital Course Summary of Care Provided Minutes Spent on Discharge: 35 Hospital Course: Patient is a 51-year-old gentleman with history of ischemic cardiomyopathy presented with progressive shortness of breath 1. Acute on chronic congestive heart failure with reduced ejection fraction ? Patient has had recurrent admissions. Admitted to monitored bed started on strict input and output, daily weight, fluid restriction as well as use of IV Lasix. Consult was placed to CHF Acacian team to prevent patient frequent readmissions. Patient last echo on file was on 07/30/2021 which demonstrated EF of 30%. Patient is already on AGNES inhibitor's beta-blockers as well as Aldactone at home did continue ? 01/02/2022 patient remains in diuretics and is in negative fluid balance of 2.2 L following his admission. We will continue with current diuretic regimen and monitoring of electrolytes -01/02/2022; patient requested to be discharged to seek a second opinion regarding his congestive heart failure at the tertiary care center. He was therefore granted his wish. Patient plans to follow-up at [facility] 2. Coronary artery disease ? With previous acute [place] on October 03, 2021. He was noted to have 100% occlusion in his LAD underwent PCI with HALLEY. Patient is on recommended medications including beta-blockers AGNES inhibitors statin therapy and antiplatelet therapy 3. Ischemic cardiomyopathy ? Patient is on recommended medications including losartan as well as beta-blockers. 4. Hypertension - Blood pressure controlled, home medications continued with dose adjustment as needed 5. Dyslipidemia -Patient is on statin therapy, continued at home dose 6. BPH ? Patient is on tamsulosin did continue 7. Suspected sleep apnea ? Patient is scheduled to undergo sleep study on 01/23/2022. Plan is to use BiPAP at bedtime ? 01/02/2022 patient tolerated BiPAP during the night 8. Class II obesity with BMI of 36.4 ? Weight loss advised 9. History of acute myeloid leukemia ? Currently in remission 10. Paroxysmal A. fib ? Rate controlled on carvedilol patient is not on systemic anticoagulant reason unclear 11. DVT prophylaxis - On enoxaparin CODE STATUS; full code Physical Exam Narrative GENERAL: cooperative but dyspneic at rest HEENT: Atraumatic; EYES; Anicteric, Normal Conjunctiva NECK; supple, normal thyroid, RESPIRATORY: Diminished to auscultation, with bibasilar Rales CARDIOVASCULAR: Regular S1 S2, GI: soft, normoactive bowel sounds, : No Renal angle tenderness; EXTREMITIES: No edema, no clubbing, MUSCULOSKELETAL: no muscle wasting NEURO: Awake; no lateralizing signs. SKIN: No Rash PSYCH; Flat affect Weight / BMI Weight Weight: 125.4 kg Body Mass Index (BMI) 36.3 ABG / Lab / Microbiology Data Result Diagrams: 01/02/22 05:40 01/02/22 05:40 Laboratory: Laboratory Results - last 24 hr 01/01/22 12:58: Troponin I High Sens 61 01/02/22 05:40: WBC 10.4, RBC 4.24 L, Hgb 13.7, Hct 41.2, MCV 97.2 H, MCH 32.3 H, MCHC 33.3, RDW Std Deviation 50.0 H, RDW Coeff of Yunior 14.2, Plt Count 278, MPV 10.5, Immature Gran % (Auto) 0.300, Neut % (Auto) 59.0, Lymph % (Auto) 25.6, [place] % (Auto) 10.8 H, Eos % (Auto) 3.5, Baso % (Auto) 0.8, Absolute Neuts (auto) 6.1, Absolute Lymphs (auto) 2.66, Nucleated RBC % 0 01/02/22 05:40: Sodium 140, Potassium 3.7, Chloride 106, Carbon Dioxide 26.0, Anion Gap 8, BUN 27 H, Creatinine 1.16, Estim Creat Clear Calc 83.23, Est GFR (MDRD) Af Amer 85, Est GFR (MDRD) Non-Af 70, BUN/Creatinine Ratio 23.3 H, Glucose 123 H, Calcium 8.8 Radiography Diagnostic Testing: Radiology Impression Chest CTA 01/01/22 16:04 IMPRESSION: No acute abnormalities in the chest. Specifically, no evidence of acute pulmonary emboli to the segmental level. Stable appearance of moderate bilateral pleural effusions. Otherwise no change when compared to most recent prior on 12/23/2021. Electronically Signed: Jaquan Lehman MD at 17:19 EDT , D/C Instructions Discharge Diet: 8 Cup Fluid Restriction and 2000 mg Sodium Diet Discharge Activity: Return to Normal Activity Call your doctor if you observe: Fever of 101 or Higher, Shortness of breath, Fainting spells and Chest pain Meaningful Use Info Meaningful Use Diagnoses (Choose all that apply): CHF CHF AGNES/ARB ordered at discharge?: Yes Documented LVEF (%): 30 Discharge Plan Admission Admit Date/Time: 01/01/22 07:31 Attending Provider: Guillermo Mike Primary Care Provider: Juan Davila Discharge Orders/Prescriptions Prescriptions: Continued ascorbic acid (vitamin C) 1,000 mg tablet 1 g PO DAILY RF: 0 tamsulosin [Flomax] 0.4 mg capsule 0.4 mg PO QHS RF: 0 allopurinol 100 mg tablet 200 mg PO BID RF: 0 cholecalciferol (vitamin D3) 125 mcg (5,000 unit) capsule 125 mcg PO DAILY RF: 0 aspirin [Adult Low Dose Aspirin] 81 mg tablet,delayed release (DR/EC) 81 mg PO QDAY Qty: 90 RF: 3 imipramine HCl 25 mg tablet 50 mg PO QHS RF: 0 losartan 25 mg tablet 25 mg PO DAILY Qty: 90 RF: 3 acyclovir 400 MG tablet 400 mg PO BID RF: 0 spironolactone 25 mg Tablet 25 mg PO DAILY Qty: 30 RF: 0 clopidogrel [Plavix] 75 mg tablet 75 mg PO DAILY Qty: 90 RF: 3 carvedilol 12.5 mg tablet 12.5 mg PO BID Qty: 180 RF: 3 atorvastatin 80 mg tablet 80 mg PO QHS Qty: 90 RF: 3 Changed furosemide 40 mg Tablet 80 mg PO BIDLX Qty: 60 RF: 0 Referrals / Follow Up: Vin Gonzalez DO [STAFF PHYSICIAN] - 01/15/22 10:45 am Juan Davila DO [Primary Care Provider] - In 1 Week Disposition Disposition (needs filled in before D/C Order can be placed): Home, Self Care Charges/Coding Visit Charges Inpatient E&M: 58018 Disch Hosp
--- NOTE | 2022-01-02 11:44 | CASEMGMT ---
Per Jennie in sleep lab, pt is not currently set up for sleep study. This RN CM was able to get pt sooner appt with pulm on 01/15/22 and pt was updated at this time, voices understanding and appreciation. This was also placed on d/c instructions. Per Yosef RN, pt does not qualify for home oxygen at this time. Pt/ voice no further questions/concerns/needs. SStgiancarlo NIX CM
--- NOTE | 2022-01-02 12:34 | NURSING ---
Reviewed charting with Myron Veloz RN
--- NOTE | 2022-01-02 12:34 | PHA.DC.MR ---
Pharmacy Service has performed discharge medication reconciliation for this patient. The patient's discharge medication list was reviewed for discrepancies and discrepancies were resolved. No new medications. Please see physician note regarding anticoagulation for A fib. Home Medications acyclovir 400 mg PO BID 07/18/17 ascorbic acid (vitamin C) 1,000 mg tablet 1 g PO DAILY tab 10/14/19 tamsulosin 0.4 mg capsule 0.4 mg PO QHS 10/14/19 allopurinol 100 mg tablet 200 mg PO BID tab 02/24/20 clopidogrel 75 mg tablet 75 mg PO DAILY #90 tab 01/04/21 carvedilol 12.5 mg tablet 12.5 mg PO BID #180 tab 04/11/21 aspirin 81 mg tablet,delayed release 81 mg PO QDAY #90 tab 07/04/21 cholecalciferol (vitamin D3) 125 mcg (5,000 unit) capsule 125 mcg PO DAILY 07/04/21 imipramine HCl 25 mg tablet 50 mg PO QHS tab 12/17/21 losartan 25 mg tablet 25 mg PO DAILY #90 tab 12/17/21 atorvastatin 80 mg tablet 80 mg PO QHS #90 tab 12/20/21 spironolactone 25 mg PO DAILY #30 tab 12/24/21 furosemide 80 mg PO BIDLX #60 tab 01/02/22
== END 2022-01-02 12:25 | disposition home or self-care (01) | DRG 291 ==
LOC: ED 07:11 → PCU 07:42
PROVIDERS: Admitting Provider Internal Medicine; Emergency Provider Emergency Medicine; PCP Family Medicine; Visit Provider Internal Medicine
DX: I11.0 Hypertensive heart disease with heart failure (principal); I50.23 Acute on chronic systolic (congestive) heart failure; E66.9 Obesity, unspecified; I48.0 Paroxysmal atrial fibrillation; I25.5 Ischemic cardiomyopathy; I25.10 Atherosclerotic heart disease of native coronary artery without angina pectoris; E78.5 Hyperlipidemia, unspecified; M10.9 Gout, unspecified; I25.2 Old myocardial infarction; G47.30 Sleep apnea, unspecified; N40.0 Benign prostatic hyperplasia without lower urinary tract symptoms; Z68.36 Body mass index [BMI] 36.0-36.9, adult; R09.02 Hypoxemia; Z79.899 Other long term (current) drug therapy; Z79.02 Long term (current) use of antithrombotics/antiplatelets; Z79.82 Long term (current) use of aspirin; Z86.711 Personal history of pulmonary embolism; Z86.718 Personal history of other venous thrombosis and embolism; Z85.6 Personal history of leukemia
CPT/HCPCS: 36415; 71045; 71275; 80048; 83880; 84484; 84550; 85025; 85379; 87635; 93005; 94002; 94762; 99251; 99284; Q9967; A4216; G0463; J1940; U0003; U0005